=== PATIENT | female | born 1980 | race African-American/Black ===

== ENCOUNTER 2020-02-21 22:28 | Emergency (ER) | payer SELFPAY ==
--- NOTE | 2020-02-21 22:37 | ED.HA ---
HPI - Headache General Chief Complaint: Headache Stated Complaint: Headache , HTN Time Seen by Provider: 02/21/20 22:37 History of Present Illness HPI Narrative: Headache and HTN since this afternoon. The COSTA is left sided and associated with generally not feeling well today. It is moderate in intensity. She also noted that she has had elevated BP throughout the day today. She mentions that she has had tingling in the hands and feet recently, which caused her PCP to mention possible DM, which she has not been evaluated for yet. Additionally she does have urinary frequency. Related Data Allergies Allergy/AdvReac Type Severity Reaction Status Date / Time acetaminophen [From Vicodin] Allergy Unknown Verified 02/21/20 22:45 hydrocodone [From Vicodin] Allergy Unknown Verified 02/21/20 22:45 naproxen Allergy Unknown Verified 02/21/20 22:45 Review of Systems Review of Systems: All systems reviewed & are unremarkable except as noted in HPI and below Constitutional: Constitutional: Denies chills and Denies fever(s) ENT: Denies dizziness and Denies sore throat Cardiovascular: Cardiovascular: Denies chest pain Respiratory: Respiratory: Denies dyspnea Gastrointestinal: Gastrointestinal: Denies abdominal pain and Denies nausea Genitourinary: Genitourinary: Reports nocturia and Denies dysuria Musculoskeletal: Musculoskeletal: Denies back pain Neurologic: Reports headache(s), Denies numbness and Denies weakness Endocrine: Endocrine: Reports polyuria [facility] Past Medical History Medical History (Updated 02/22/20 @ 00:01 by Arthur May MD) Hypertension Social History Social History (Updated 02/21/20 @ 23:42 by Arthur May MD) Smoking status: Never smoker Exam Const: General: healthy appearing, no acute distress and alert Orientation/consciousness: patient oriented x3 HENMT: Head: normal to inspection Ears: TM's normal bilaterally Face and sinus: normal facial exam Eyes: Conjunctivae: conjunctivae normal Pupils: Equal, round and reactive pupils present EOM: EOMs intact bilaterally Neck: Neck: normal visual inspection Resp: Effort & Inspection: normal respiratory effort Auscultation: clear to auscultation bilaterally Cardio: Rate: regular rate Rhythm: regular rhythm Skin: General skin exam: normal color Neuro: General: patient oriented x3, moves all extremities, no meningeal signs, no focal motor deficits and CN's II-XI intact bilaterally Speech: normal speech Gait exam (Neuro): Normal gait present Course Vital Signs Vital signs: Vital Signs Temperature 36.8 C 02/21/20 22:40 Pulse Rate 91 02/21/20 22:40 Respiratory Rate 18 02/21/20 22:40 Blood Pressure 163/95 H 02/21/20 22:40 Pulse Oximetry 100 02/21/20 22:40 Temperature 36.8 C 02/21/20 22:40 Pulse Rate 89 02/22/20 00:00 Respiratory Rate 19 02/22/20 00:00 Blood Pressure 137/56 L 02/22/20 00:00 Pulse Oximetry 100 02/22/20 00:00 MDM - Headache MDM Narrative Medical decision making narrative: Headache resolved with symptomatic treatment and BP improved spontaneously. Differential Diagnosis Differential diagnosis: Likely migraine, tension headache, headache and other (HTN) Medical Records Attestation: I reviewed the patient's medical records. Lab Data Attestation: I reviewed the patient's lab results. Result diagrams: 02/21/20 22:58 02/21/20 22:58 Labs: Lab Results 02/21/20 02/21/20 Range/Units 22:58 22:58 WBC 11.5 H (4.5-10.0) K/mm3 RBC 4.17 L (4.2-5.4) M/mm3 Hgb 8.7 L (12.0-15.0) g/dL Hct 29.9 L (37.0-47.0) % MCV 71.7 L (80-100) fl MCH 20.9 L (26-34) pg MCHC 29.1 L (32-36) g/dl RDW 18.0 H (11.5-14.5) % Plt Count 538 H (150-375) k/mm3 MPV 9.0 (7.4-10.4) fl Immature Gran % (Auto) 0.3 (0-0.5) % Neut % (Auto) 48.3 (45.5-73.1) % Lymph % (Auto) 42.6 (18.3-44.2) % [place] % (Auto) 7.0 (2.6-8.5) % Eos % (A
[2020-02-21 22:40] VITALS: BP 163/95; PULSE 91; RESP 18; TEMP 36.8; O2SAT 100
[2020-02-21] MEDS: METOCLOPRAMIDE HCL INJ 10 MG/2 ML VIAL IV PUSH (23:07)
[2020-02-21 23:08] VITALS: BP 153/77; PULSE 93; RESP 16; O2SAT 100
[2020-02-21] MEDS: SODIUM CHLORIDE 0.9% IV 1,000 ML 999 ML IV CONT (23:08)
[2020-02-21 23:13] LABS: Basophils Percent Auto 0.3 % (0.2-1.2); Eosinophils Absolute Auto 0.2 K/mm3 (0-0.3); Eosinophils Percent Auto 1.5 % (0-4.4); Hematocrit 29.9 % (37.0-47.0); Hemoglobin 8.7 g/dL (12.0-15.0); Immature Granulocyte Absolute 0.03 K/mm3 (0.00-0.031); Immature Granulocyte Percent A 0.3 % (0-0.5); Lymphocytes Absolute Auto 4.89 K/mm3 (0.9-3.2); Lymphocytes Percent Auto 42.6 % (18.3-44.2); Mean Corpuscular HGB Conc 29.1 g/dl (32-36); Mean Corpuscular Hemoglobin 20.9 pg (26-34); Mean Corpuscular Volume 71.7 fl (80-100); Monocytes Absolute Auto 0.8 K/mm3 (0.1-0.6); Neutrophils Absolute Auto 5.6 K/mm3 (1.3-6.7); Neutrophils Percent Auto 48.3 % (45.5-73.1); Platelet Count Result 538 k/mm3 (150-375); Red Blood Count 4.17 M/mm3 (4.2-5.4); White Blood Count 11.5 K/mm3 (4.5-10.0)
[2020-02-21 23:24] LABS: Blood Urea Nitrogen 9 mg/dL (7-17); Calcium 9.3 mg/dL (8.4-10.2); Carbon Dioxide 26 mmol/L (22-30); Chloride 101 mmol/L (98-107); Estimated Glomerular Filt Rate > 60; Glucose 104 mg/dL (65-105); Potassium 3.4 mmol/L (3.4-5.0); Sodium 137 mmol/L (137-145)
[2020-02-21 23:36] LABS: Microcytosis 2+ (NORMAL); Platelet Estimate Adequate (Adequate)
[2020-02-21 23:37] LABS: Hypochromasia 1+ (NORMAL)
[2020-02-21 23:43] VITALS: BP 176/90; PULSE 89; RESP 18; O2SAT 100
[2020-02-22] VITALS: BP 137/56; PULSE 89; RESP 19; O2SAT 100
[2020-02-22 00:11] VITALS: BP 146/83; PULSE 88; RESP 16; O2SAT 100
== END 2020-02-22 00:13 | disposition home or self-care (01) ==
PROVIDERS: Emergency Provider Emergency Medicine; PCP Internal Medicine
DX: R51 Headache (principal); I10 Essential (primary) hypertension
CPT/HCPCS: 36415; 80048; 85025; 96361; 96374; 96375; 99284; J1200; J2765; J7030

== ENCOUNTER 2020-04-30 21:16 | Emergency (ER) | payer OTHER, SELFPAY ==
--- NOTE | ~2020-04-30 | CT_ITS ---
EXAMINATION: CTA chest PE protocol EXAM DATE: 05/01/2020 00:09 INDICATION: Mid chest pain, elevated d-dimer. TECHNIQUE: Spiral CTA of the chest (pulmonary arteries) was performed with 100 cc Omnipaque 350 intr avenous contrast injection. Images were acquired during the pulmonary arterial phase. Coronal maxi mum intensity projection 3D-reconstructions were created by the technologist on dedicated workstation . Axial, coronal and sagittal reformatted images were reviewed. The dose-length product (DLP) for t his examination was 579.85 mGy-cm. The exposure was tailored according to patient size (auto mA exp osure control), and iterative reconstruction (ASIR) was used as additional dose reduction technique. There is no prior study for comparison. FINDINGS: Pulmonary arteries are well opacified and without intraluminal filling defects. No thora cic aortic dissection. Small cluster of right lower lobe tree-in-bud pattern nodules, probably posti nfectious. Some linear lingular scarring. Aberrant right subclavian artery, congenital variant. Ther e are no pleural or pericardial effusions. Tracheobronchial tree is patent. There is no mediastin al, hilar or axillary lymphadenopathy. There is no pneumothorax. Heart normal in size. No evide nce of coronary arterial calcification. Upper abdomen is unremarkable. There is thoracic spondylos is without osteoblastic or osteolytic lesions identified. IMPRESSION: 1. No pulmonary emboli or acute findings. 2. Small cluster right lower lobe nodules, most likely postinfectious. Consider 3-six-month follow-u p low-dose chest CT. Reviewed, dictated and finalized at location A. IMPRESSION: 1. No pulmonary emboli or acute findings. 2. Small cluster right lower lobe nodules, most likely postinfectious. Conside r 3-six-month follow-up low-dose chest CT.
--- NOTE | ~2020-04-30 | XR_ITS ---
EXAMINATION: XR chest 1V portable 04/30/2020 21:49 INDICATION: Generalized chest pain and shortness of breath. Cough. History of asthma. PROCEDURE: AP portable chest COMPARISON: 03/10/2016 FINDINGS: The lungs are clear. The cardiomediastinal silhouette is within normal limits. There are no pleural effusions. There is no pneumothorax suspected. IMPRESSION: 1: NO ACUTE CARDIOPULMONARY DISEASE. Reviewed, dictated and finalized at location A.
--- NOTE | 2020-04-30 21:18 | ECG_ITS ---
Measurements Intervals [place] Rate: 95 P: 51 TN: 137 QRS: 10 QRSD: 84 T: 21 QT: 357 QTc: 450 Interpretive Statements SINUS RHYTHM BASELINE ARTIFACT- I, II, III, AVR, V1, V3 NORMAL ECG Electronically Signed On 05-01-2020 7:20:12 CDT by Ed Jones D.O.
[2020-04-30 21:20] VITALS: BP 162/76; PULSE 104; RESP 20; TEMP 36.9; O2SAT 98
--- NOTE | 2020-04-30 21:33 | ED.GENADULT ---
HPI - General Adult General Chief complaint: Shortness of Breath/Dyspnea Stated complaint: Multiple complaints Time Seen by Provider: 04/30/20 21:21 Source: patient Mode of arrival: ambulatory Limitations: no limitations History of Present Illness HPI narrative: This patient is a 39 year old Female with history of hypertension and asthma who presents for evaluation of headache and chest pain. Patient states for 2 days she has had right side headache that has been constant pressure. She also reports fatigue and diffuse chest tightness that has been constant for 2 days. Her tightness seems worse with moving around. She also reports feeling short of breath and lightheaded. She denies URI symptoms, fever, cough, nausea or vomiting. She denies sick contacts. She took 3 aspirin and tums for her headache and indigestion. Related Data Allergies Allergy/AdvReac Type Severity Reaction Status Date / Time acetaminophen [From Vicodin] Allergy Unknown Verified 02/21/20 22:45 hydrocodone [From Vicodin] Allergy Unknown Verified 02/21/20 22:45 naproxen Allergy Unknown Verified 02/21/20 22:45 Review of Systems Review of Systems: All systems reviewed & are unremarkable except as noted in HPI and below Constitutional: Constitutional: Denies chills and Denies fever(s) Eyes: Eyes: Denies change in vision ENT: Reports as per HPI, Reports dizziness, Denies nasal congestion and Denies sore throat Cardiovascular: Cardiovascular: Reports chest pain Respiratory: Respiratory: Denies cough, Reports dyspnea and Denies wheezing Gastrointestinal: Gastrointestinal: Denies abdominal pain, Reports diarrhea, Denies nausea and Denies vomiting Neurologic: Reports dizziness and Reports headache(s) PMFSH Past Medical History Medical History (Updated 05/01/20 @ 02:09 by Marilu Parekh MD) Asthma Hypertension Surgical History Surgical History (Updated 04/30/20 @ 21:34 by Marilu Parekh MD) H/O section Social History Social History (Updated 04/30/20 @ 21:34 by Marilu Parekh MD) Smoking status: Never smoker Alcohol intake: never Substance use: never Exam Narrative: Exam Narrative: GENERAL: Well-appearing, well-nourished, and in no acute distress. HEAD: Normocephalic, atraumatic EYES: PERRLA and EOMI, conjunctiva clear without discharge EARS: TM's clear bilaterally without erythema or dullness NOSE: Nares clear, no rhinorrhea or epistaxis THROAT:Mucous membranes moist, Oropharynx normal without erythema, exudate, peritonsillar swelling or fluctuance NECK: Supple, without lymphadenopathy or mass RESPIRATORY: No respiratory distress, Airway patent, Respirations non-labored, Clear to auscultation without rales, rhonchi or wheeze, : there is sternal chest tenderness HEART: Regular rate and rhythm. No murmur heard. Normal peripheral pulses. ABDOMEN: Soft, nontender, nondistended, normal active bowel sounds. No masses. No rebound or guarding, No organomegaly. EXTREMITIES: No edema, normal strength with full range of motion. SKIN: Warm, dry, normal color without rash NEURO: Alert and oriented x3. CN 2-12 grossly intact. No focal deficits. PSYCH: Normal mood and affect. Course Reevaluation(s) Reevaluation #1: PAtient states her headache has resolved. Date: 04/30/20 Time: 22:47 Reevaluation #2: I Discussed with patient evaluation showing anemia and nodules to her lungs. She states she is on iron but she is not taking it regularly. She is low risk heart score so she will follow up as outpatient. She will be tested for covid as cause of her symptoms as well. PCP is Kenneth Rodriguez Date: 05/01/20 Time: 02:07 Vital Signs Vital signs: Vital Signs Temperature 98.5 F 04/30/20 21:20 Pulse Rate 104 H 04/30/20 21:20 Respiratory Rate 20 04/30/20 21:20 Blood Pressure 162/76 H 04/30/20 21:20 Pulse Oximetry 98 04/30/20 21:20 Temperature 98.6 F 05/01/20 02:28 Pulse Rate 91
[2020-04-30 22:02] LABS: Basophils Percent Auto 0.3 % (0.2-1.2); Eosinophils Absolute Auto 0.2 K/mm3 (0-0.3); Eosinophils Percent Auto 1.3 % (0-4.4); Hematocrit 30.2 % (37.0-47.0); Hemoglobin 8.9 g/dL (12.0-15.0); Immature Granulocyte Absolute 0.05 K/mm3 (0.00-0.031); Immature Granulocyte Percent A 0.4 % (0-0.5); Lymphocytes Absolute Auto 4.43 K/mm3 (0.9-3.2); Lymphocytes Percent Auto 31.9 % (18.3-44.2); Mean Corpuscular HGB Conc 29.5 g/dl (32-36); Mean Corpuscular Hemoglobin 20.7 pg (26-34); Mean Corpuscular Volume 70.4 fl (80-100); Mean Platelet Volume 9.5 fl (7.4-10.4); Monocytes Percent Auto 7.4 % (2.6-8.5); Neutrophils Absolute Auto 8.2 K/mm3 (1.3-6.7); Neutrophils Percent Auto 58.7 % (45.5-73.1); Platelet Count Result 494 k/mm3 (150-375); Red Blood Count 4.29 M/mm3 (4.2-5.4); Red Cell Distribution Width 19.2 % (11.5-14.5); White Blood Count 13.9 K/mm3 (4.5-10.0)
[2020-04-30 22:12] LABS: Lactic Acid Reflex 1.4 mmol/L (0.7-2.1)
[2020-04-30] MEDS: diphenhydrAMINE HCl INJ 50 MG/ML VIAL 25 MG IV PUSH (22:12)
[2020-04-30] MEDS: METOCLOPRAMIDE HCL INJ 10 MG/2 ML VIAL IV PUSH (22:12)
[2020-04-30 22:14] LABS: INR 0.9; Partial Thromboplastin Time 23.4 SECONDS (22.3-36.8); Prothrombin Time 12.1 Seconds (11.1-14.7)
[2020-04-30 22:15] LABS: Alanine Aminotransferase 23 U/L (4-35); Albumin Level 4.3 g/dL (3.5-5.1); Alkaline Phosphatase 59 U/L (38-126); Anion Gap 13.8 mmol/L (7-16); Aspartate Amino Transferase 38 U/L (14-36); Bilirubin,Total 0.4 mg/dL (0.2-1.3); Blood Urea Nitrogen 12 mg/dL (7-17); CRP 1.1 mg/dL (<1.0); Calcium 9.4 mg/dL (8.4-10.2); Carbon Dioxide 25 mmol/L (22-30); Chloride 100 mmol/L (98-107); Estimated CRCL calculation 124 ml/min; Estimated Glomerular Filt Rate > 60; Glucose 132 mg/dL (65-105); Magnesium 2.1 mg/dL (1.6-2.3); Potassium 3.8 mmol/L (3.4-5.0); Sodium 135 mmol/L (137-145)
[2020-04-30 22:17] LABS: D Dimer 0.63 ug/mL (<0.48)
[2020-04-30 22:19] LABS: Hypochromasia 1+ (NORMAL); Platelet Estimate Increased (Adequate)
[2020-04-30 22:20] LABS: Anisocytosis 2+ (NORMAL)
[2020-04-30 22:27] LABS: NT Pro B Type Natriuretic Pept 22 PG/ML (5-100); Troponin I < 0.012 ng/mL (0.000-0.034)
[2020-04-30 22:34] LABS: Add Urine Microscopic? YES; Appearance Urine Clear (Clear); Bacteria Urine Trace /hpf; Bilirubin Urine Negative (Negative); Blood Urine 2+ (Negative); Color Urine Colorless (Yellow); Glucose Urine UA Negative (Negative); Ketones Urine Negative (Negative); Leukocyte Esterase Ur Trace LEU/UL (Negative); Nitrate Urine Negative (Negative); Protein Urine Negative (Negative); Specific Grav Ur 1.006 (1.001-1.035); Squamous Epithelial Cell Urine Few /hpf (Few); Urobilinogen Urine Negative mg/dL (<2.0)
--- NOTE | 2020-04-30 22:51 | PC.NURSE ---
Assumed care of pt at this time. Report from LEANNA Mckeon
[2020-04-30 23:18] VITALS: BP 154/86; BP 165/89; PULSE 91; PULSE 95
[2020-04-30 23:19] VITALS: BP 167/88; PULSE 97
[2020-04-30 23:27] VITALS: BP 161/74; PULSE 88; RESP 27; TEMP 36.9; O2SAT 99
[2020-04-30 23:28] VITALS: PULSE 88
[2020-05-01 01:30] VITALS: BP 175/101; PULSE 86; RESP 26; O2SAT 100
[2020-05-01 01:58] LABS: Troponin I < 0.012 ng/mL (0.000-0.034)
[2020-05-01 02:28] VITALS: BP 163/89; PULSE 91; RESP 23; TEMP 37; O2SAT 100
[2020-05-01 10:59] LABS: SARS-CoV-2 RNA PCR Negative
== END 2020-05-01 02:29 | disposition home or self-care (01) ==
PROVIDERS: Emergency Provider General Practice
DX: D50.8 Other iron deficiency anemias (principal); R51 Headache; R07.9 Chest pain, unspecified; Z20.828 Contact with and (suspected) exposure to other viral communicable diseases; J45.909 Unspecified asthma, uncomplicated; I10 Essential (primary) hypertension
CPT/HCPCS: 36415; 71045; 71275; 80053; 81001; 81025; 83605; 83735; 83880; 84484; 85025; 85380; 85610; 85730; 86140; 87635; 93005; 96374; 96375; 99284; C9803; J1200; J2765; Q9967; U0003

== ENCOUNTER 2021-12-27 08:57 | Emergency (ER) | payer OTHER, SELFPAY ==
[2021-12-27] VITALS (34 sets, daily range): BP systolic 134–183; BP diastolic 76–119; PULSE 73–101; RESP 12–36; TEMP 36.9; O2SAT 100
--- NOTE | ~2021-12-27 | XR_ITS ---
EXAMINATION: XR lumbar spine 2-3V DATE: 12/27/2021 10:42 INDICATION: Low back and right leg pain TECHNIQUE: Anteroposterior and lateral views of the lumbar spine, and cone-down lateral view of the l umbosacral junction were obtained. COMPARISON: None. FINDINGS: Transitional thoracolumbar segment with right-sided hypoplastic riblet and left-sided transverse proc ess which for purposes of this report will be designated L1. There are 12 more cephalad paired rib be aring thoracic segments seen on chest CT dated 05/01/2020. There are 5 more caudal nonrib-bearing lumb ar segments, L2-L6. 8 mm lumbar dextrocurvature. Sagittal alignment is normal. Vertebral body and dis c heights are normal throughout the lumbar spine. Cholecystectomy clips in right upper quadrant. Smal l calcification in the right upper quadrant superolateral to the right kidney which could represent e ither a calcified hepatic granuloma or potentially a gallstone. IMPRESSION: 1. Mild dextrocurvature of the lumbar spine with 6 lumbar segments including a transitional thoracolu mbar segment. Reviewed, dictated and finalized at location A. IMPRESSION: 1. Mild dextrocurvature of the lumbar spine with 6 lumbar segments including a transitional thoracolumbar segment.
--- NOTE | ~2021-12-27 | US_ITS ---
EXAMINATION: US venous doppler LE RT DATE: 12/27/2021 11:42 INDICATION: Right lower limb pain. TECHNIQUE: Grayscale ultrasound images without and with compression and Doppler ultrasound images of the right lower extremity veins were obtained. COMPARISON: None. FINDINGS: The visualized portions of right common femoral vein, profunda (deep) femoral vein, femoral vein, pop liteal vein, peroneal trunk, posterior tibial veins, peroneal veins, gastrocnemius vein and greater s aphenous vein outflow are patent. IMPRESSION: 1. No deep venous thrombosis in the right lower limb. Reviewed, dictated and finalized at location A.
--- NOTE | ~2021-12-27 | CT_ITS ---
EXAMINATION: CT brain wo con DATE: 12/27/2021 10:23 INDICATION: Left arm weakness TECHNIQUE: Computed tomography (CT) of the head was performed without intravenous contrast. Sagittal and coronal reconstructions were performed. The mA was adjusted according to patient size. Iterative reconstruction technique was employed. The dose-length product was 605.33 mGy-cm. COMPARISON: None FINDINGS: No acute intracranial hemorrhage, acute infarction or abnormal extra axial fluid collection. Ventricl es are normal and symmetric. No mass/mass effect. The orbits, paranasal sinuses and mastoid air cells are normal. IMPRESSION: 1. No acute intracranial process. Reviewed, dictated and finalized at location A.
--- NOTE | ~2021-12-27 | CT_ITS ---
EXAMINATION: CTA chest PE protocol EXAM DATE: 12/27/2021 14:13 INDICATION: Chest pain, elevated dimer. TECHNIQUE: Spiral CTA of the chest (pulmonary arteries) was performed with 100 cc Omnipaque 350 intr avenous contrast injection. Images were acquired during the pulmonary arterial phase. Coronal maxi mum intensity projection 3D-reconstructions were created by the technologist on dedicated workstation . Axial, coronal and sagittal reformatted images were reviewed. The dose-length product (DLP) for t his examination was 477.91 mGy-cm. The exposure was tailored according to patient size (auto mA exp osure control), and iterative reconstruction (ASIR) was used as additional dose reduction technique. Comparison is made to prior examination from 04/30/2020. FINDINGS: Pulmonary arteries are well opacified and without intraluminal filling defects. There is a berrant right subclavian artery, a normal congenital variant. Small amount of right lower lobe reticu lonodular airspace disease which is postinfectious, appears unchanged compared to prior study. The tavia ngs are otherwise clear. No thoracic aortic dissection. There are no pleural or pericardial effusi ons. Tracheobronchial tree is patent. There is no mediastinal, hilar or axillary lymphadenopathy. There is no pneumothorax. Heart normal in size. No evidence of coronary arterial calcification . Hepatic steatosis. There is mild thoracic spondylosis without osteoblastic or osteolytic lesions identified. IMPRESSION: 1. No pulmonary emboli or acute cardiopulmonary findings. 2. Small amount of right lower lobe post infectious residua. 3. Hepatic steatosis. Reviewed, dictated and finalized at location G.
--- NOTE | ~2021-12-27 | XR_ITS ---
EXAMINATION: XR chest 2V DATE: 12/27/2021 09:24 INDICATION: Asthma presenting with left-sided body weakness TECHNIQUE: PA and lateral views of the chest were obtained. COMPARISON: Chest radiograph and CT dated 04/30/2020 FINDINGS: The lungs remain clear with no focal airspace opacities, pulmonary edema, pleural effusion or pneumot horax. The cardiomediastinal silhouette is normal. Cholecystectomy clips in right upper quadrant. Mil d thoracic spondylosis. IMPRESSION: 1. No acute cardiopulmonary disease. Reviewed, dictated and finalized at location A.
--- NOTE | ~2021-12-27 | XR_ITS ---
EXAMINATION: XR shoulder LT min 2V DATE: 12/27/2021 10:42 INDICATION: Generalized left arm pain from the shoulder to the wrist TECHNIQUE: AP internally and externally rotated, AP oblique externally rotated and transscapular Y vi ews of the affected shoulder were obtained. COMPARISON: None FINDINGS: Normal alignment. No fracture.Mild left glenohumeral osteoarthritis. Acromioclavicular joint is norm al. Soft tissues are unremarkable. Visualized portions of the lungs are clear. IMPRESSION: Mild left glenohumeral osteoarthritis. Reviewed, dictated and finalized at location A.
--- NOTE | ~2021-12-27 | XR_ITS ---
EXAMINATION: XR knee RT min 4V DATE: 12/27/2021 10:41 INDICATION: Posterior right knee pain TECHNIQUE: Anteroposterior, 2 oblique and crosstable lateral views of the affected knee were obtained COMPARISON: None. FINDINGS: Alignment is normal. No fracture. Joint spaces appear normal on nonweightbearing imaging. No joint e ffusion/layering lipohemarthrosis. Soft tissues are unremarkable. IMPRESSION: 1. Negative right knee radiographs. Reviewed, dictated and finalized at location A.
--- NOTE | ~2021-12-27 | XR_ITS ---
EXAMINATION:XR_CERV2-3V_CR DATE: 12/27/2021 10:42 INDICATION: Left arm pain TECHNIQUE: AP, lateral, lateral swimmers and odontoid views of the cervical spine are provided. COMPARISON: None FINDINGS: Alignment is normal. Odontoid is intact. Normal atlantoaxial interval. Vertebral body heights are no rmal. Disc spaces are normal. Prevertebral soft tissues are normal. Visualized apices of the lungs a re clear. IMPRESSION: 1. Negative cervical spine radiographs. Reviewed, dictated and finalized at location A.
--- NOTE | 2021-12-27 08:58 | ECG_ITS ---
Measurements Intervals [place] Rate: 90 P: 54 IA: 145 QRS: 1 QRSD: 80 T: 21 QT: 368 QTc: 452 Interpretive Statements SINUS RHYTHM NORMAL ECG COMPARED TO ECG 04/30/2020 21:27:21 NO SIGNIFICANT CHANGES Electronically Signed On 12-27-2021 20:40:58 CDT by Ritchie Francis M.D.
[2021-12-27 09:29] LABS: Basophils Percent Auto 0.4 % (0.2-1.2); Eosinophils Absolute Auto 0.2 K/mm3 (0-0.3); Eosinophils Percent Auto 1.6 % (0-4.4); Hematocrit 32.5 % (37.0-47.0); Hemoglobin 10.3 g/dL (12.0-15.0); Immature Granulocyte Absolute 0.03 K/mm3 (0.00-0.031); Immature Granulocyte Percent A 0.3 % (0-0.5); Lymphocytes Absolute Auto 2.98 K/mm3 (0.9-3.2); Lymphocytes Percent Auto 29.6 % (18.3-44.2); Mean Corpuscular HGB Conc 31.7 g/dl (32-36); Mean Corpuscular Hemoglobin 25.9 pg (26-34); Mean Corpuscular Volume 81.9 fl (80-100); Mean Platelet Volume 9.3 fl (7.4-10.4); Monocytes Absolute Auto 0.6 K/mm3 (0.1-0.6); Monocytes Percent Auto 5.8 % (2.6-8.5); Neutrophils Absolute Auto 6.3 K/mm3 (1.3-6.7); Neutrophils Percent Auto 62.3 % (45.5-73.1); Platelet Count Result 407 k/mm3 (150-375); Red Blood Count 3.97 M/mm3 (4.2-5.4); Red Cell Distribution Width 14.2 % (11.5-14.5); White Blood Count 10.1 K/mm3 (4.5-10.0)
[2021-12-27 09:39] LABS: Prothrombin Time 12.4 Seconds (11.1-14.7)
[2021-12-27 09:40] LABS: Partial Thromboplastin Time 24.6 SECONDS (22.3-36.8)
[2021-12-27 09:42] LABS: Alanine Aminotransferase 22 U/L (4-35); Albumin Level 3.9 g/dL (3.5-5.1); Alkaline Phosphatase 59 U/L (38-126); Anion Gap 8 mmol/L (8-16); Aspartate Amino Transferase 32 U/L (14-36); Bilirubin,Total 0.7 mg/dL (0.2-1.3); Blood Urea Nitrogen 9 mg/dL (7-17); Calcium 8.7 mg/dL (8.4-10.2); Carbon Dioxide 23 mmol/L (22-30); Chloride 106 mmol/L (98-107); Estimated CRCL calculation 107 ml/min; Estimated Glomerular Filt Rate > 60; Glucose 125 mg/dL (65-110); Lipase 80 U/L (23-300); Potassium 3.8 mmol/L (3.4-5.0); Sodium 137 mmol/L (137-145)
[2021-12-27 09:53] LABS: Troponin I < 0.012 ng/mL (0.000-0.034)
--- NOTE | 2021-12-27 10:03 | ED.CHESTPAIN ---
HPI - Chest Pain General Chief Complaint: Chest Pain <Asia Dobbins PA-C - Last Filed: 12/27/21 15:02> Stated Complaint: chest pain <Asia Dobbins PA-C - Last Filed: 12/27/21 15:02> Time Seen by Provider: 12/27/21 09:09 <Asia Dobbins PA-C - Last Filed: 12/27/21 15:02> Source: patient <ALMA Garrido Last Filed: 12/27/21 15:02> Mode of arrival: ambulatory <ALMA Garrido Last Filed: 12/27/21 15:02> Limitations: no limitations <Asia Dobbins PA-C - Last Filed: 12/27/21 15:02> History of Present Illness HPI narrative: This is a 41-year-old female that presents to the emergency department with multiple complaints. Reports she has had right leg pain ongoing for the last couple of weeks. No certain injury or trauma. Reports the pain radiates up her leg. It is mostly centered around the back of her knee. It has been constant. She has not taken anything for pain. She also reports left upper arm pain. She feels like her left arm is weak. This is also been ongoing for a couple of weeks. Reports she has had some intermittent chest tightness over the last couple of days. She was unsure if some of her symptoms were due to anxiety. She does not currently take any medications for anxiety. Denies shortness of breath, lower extremity edema, or numbness. <Asia Dobbins PA-C - Last Filed: 12/27/21 15:02> Related Data Allergies/Adverse Reactions: Allergies Allergy/AdvReac Type Severity Reaction Status Date / Time acetaminophen [From Vicodin] Allergy Unknown Verified 02/21/20 22:45 hydrocodone [From Vicodin] Allergy Unknown Verified 02/21/20 22:45 naproxen Allergy Unknown Verified 02/21/20 22:45 <ALMA Garrido Last Filed: 12/27/21 15:02> Review of Systems Review of Systems: CONSTITUTIONAL: Denies fever CARDIOVASCULAR: Reports chest pain. Denies edema. RESPIRATORY: Denies dyspnea. SKIN: Denies rash MUSCULOSKELETAL: Reports joint pain, and myalgia. NEUROLOGIC: Reports weakness. Denies numbness PSYCHIATRIC: Reports anxiety <Asia Dobbins PA-C - Last Filed: 12/27/21 15:02> All systems reviewed & are unremarkable except as noted in HPI and below <Asia Dobbins PA-C - Last Filed: 12/27/21 15:02> PMFSH Past Medical History Medical History: Medical History (Updated 12/27/21 @ 15:00 by Asia Dobbins PA-C) Asthma Hypertension <Asia Dobbins PA-C - Last Filed: 12/27/21 15:02> Surgical History Surgical History: Surgical History (Updated 04/30/20 @ 21:34 by Marilu Parekh MD) H/O section <Asia Dobbins PA-C - Last Filed: 12/27/21 15:02> Social History Social History: Social History (Updated 04/30/20 @ 21:34 by Marilu Parekh MD) Smoking status: Never smoker Alcohol intake: never Substance use: never <Asia Dobbins PA-C - Last Filed: 12/27/21 15:02> Exam Narrative: GENERAL: Well-appearing, well-nourished, and in no acute distress. HEAD: Normocephalic, atraumatic. EYES: PERRLA and EOMI. ENT: Nares clear, no rhinorrhea or epistaxis. Mucous membranes moist. Oropharynx without tonsillar hypertrophy exudate or other lesions. Bilateral TMs pearly street non-bulging NECK: Supple. No adenopathy or masses. CHEST: Clear to auscultation. No respiratory distress. No wheezes rales or rhonchi HEART: Regular rate and rhythm. No murmur heard. Normal peripheral pulses. EXTREMITIES: Normal range of motion. No edema, erythema or deformity. Normal distal pulses. Normal sensation. Strength equal in bilateral upper and lower extremities (5/5) SKIN: Warm, dry, no rash. NEURO: No focal deficits. Alert and oriented x3. Cranial nerves II through XII grossly intact PSYCH: Normal mood and affect <Asia Dobbins PA-C - Last Filed: 12/27/21 15:02> Course FRESH WORK INSPECTOR/PA Physician Supervision For this patient encounter, I reviewed the FRESH WORK INSPECTOR or PA documentation, treatment plan, and medical decision making
[2021-12-27 11:02] LABS: D Dimer 0.54 ug/mL (<0.48)
[2021-12-27 12:40] LABS: Troponin I < 0.012 ng/mL (0.000-0.034)
--- NOTE | 2021-12-27 13:02 | PC.NURSE ---
patient states that there is no chance of . provider aware. patient willing to sign waiver for CT scan
== END 2021-12-27 15:38 | disposition home or self-care (01) ==
PROVIDERS: Physician Assistant; Emergency Provider Emergency Medicine
DX: M79.604 Pain in right leg (principal); M79.622 Pain in left upper arm; R07.89 Other chest pain; M19.012 Primary osteoarthritis, left shoulder; K76.0 Fatty (change of) liver, not elsewhere classified
CPT/HCPCS: 36415; 70450; 71046; 71275; 72040; 72100; 73030; 73564; 80053; 83690; 83735; 84484; 85025; 85380; 85610; 85730; 93005; 93971; 96374; 99284; J0131; Q9967

== ENCOUNTER 2022-02-17 11:52 | Emergency (ER) | payer OTHER, SELFPAY ==
--- NOTE | ~2022-02-17 | XR_ITS ---
EXAMINATION: XR abdomen/kub 1V DATE: 02/17/2022 12:27 INDICATION: Left abdominal pain. TECHNIQUE: A supine view of the abdomen was obtained. COMPARISON: Chest CT 12/27/2021, lumbar spine radiographs 12/27/2021 FINDINGS: There are no dilated loops of bowel. There is a moderate volume of stool in the colon. Ther e is no urolithiasis. There is a phlebolith in right pelvis. Surgical clips in the right upper quadra nt are likely from cholecystectomy. IMPRESSION: 1. Normal bowel gas pattern. Reviewed, dictated and finalized at location B.
[2022-02-17 11:59] VITALS: BP 172/98; PULSE 102; RESP 20; TEMP 36.9; O2SAT 100
[2022-02-17 12:00] VITALS: BP 172/98; PULSE 102; RESP 20; TEMP 36.9; O2SAT 100
--- NOTE | 2022-02-17 12:03 | ED.BACK ---
HPI - Back Pain/Injury General Chief Complaint: Back Pain/Injury Stated Complaint: left side back pain Time Seen by Provider: 02/17/22 12:05 Source: patient Mode of arrival: ambulatory Limitations: no limitations History of Present Illness HPI Narrative: 41-year-old female presented for complaint of left flank pain, onset today. States she worked nights, felt the pain after waking. She denies injury. Rates pain 8 out of 10, worse with any movement, described as sharp and 'a knot.' Endorses nausea. Denies cough, sob, vomiting, diarrhea, hematuria, dysuria, fevers or chills. She has not taken BP medication yet today. Related Data Home Medications Medication Instructions Recorded Confirmed albuterol 90 mcg INHALATION PRN PRN 02/17/22 02/17/22 losartan 25 mg PO DAILY 02/17/22 02/17/22 metoprolol tartrate 37.5 mg PO DAILY 02/17/22 02/17/22 mometasone-formoterol [Dulera] 2 puff INHALATION Q12H 02/17/22 02/17/22 Allergies Allergy/AdvReac Type Severity Reaction Status Date / Time acetaminophen [From Vicodin] AdvReac Intermediate Other Verified 02/17/22 12:18 hydrocodone [From Vicodin] AdvReac Intermediate Other Verified 02/17/22 12:18 naproxen AdvReac Intermediate Other Verified 02/17/22 12:18 Review of Systems Review of Systems: CONSTITUTIONAL: Denies body aches, fever, chills, or sweats. EYES: Denies visual changes, redness, or discharge. ENT: Denies rhinorrhea, congestion, sore throat, or otalgia. CARDIOVASCULAR: Denies chest pain, palpitations, or edema. RESPIRATORY: Denies cough or dyspnea. GASTROINTESTINAL: Denies abdominal pain, vomiting, or diarrhea. GENITOURINARY: Denies dysuria or hematuria. SKIN: Denies rash, itching, or wounds. MUSCULOSKELETAL:reports back pain NEUROLOGIC: Denies headache, numbness, tingling, or weakness. PSYCH: Denies depression or anxiety. All systems reviewed & are unremarkable except as noted in HPI and below PMFSH Past Medical History Medical History Asthma Hypertension Surgical History Surgical History H/O section Social History Social History Smoking status: Never smoker Alcohol intake: never Substance use: never Comments At time of signature, I have reviewed and agree with nursing past medical, surgical, social and family history unless otherwise noted. Please see nursing chart for further information. There is no relevant family history pertinent to the presenting complaint Exam Narrative: GENERAL: appears in pain, no acute distress. HEAD: Normocephalic, atraumatic. EYES: EOMI. No redness or drainage. Conjunctivae normal. ENT: Mucous membranes pink and moist. No rhinorrhea. TMs normal bilaterally. Throat normal. Uvula midline. NECK: Normal AROM. Supple. No lymphadenopathy. CHEST: No respiratory distress. Clear to auscultation. HEART: Regular rate and rhythm. No murmur appreciated. Normal peripheral pulses. ABDOMEN: Soft, tender with deep palpation to left upper abd, nondistended, normal active bowel sounds. Left CVA tenderness and left lateral abdominal tenderness with palpation. MUSCULOSKELETAL: No bony tenderness. EXTREMITIES: Normal range of motion. No edema. SKIN: Warm, dry, no rash. Capillary refill normal. Normal skin turgor. NEURO: No focal deficits. Alert and oriented x3. Gait steady. PSYCH: Normal affect. No signs of depression or anxiety. Course Course Emergency Course: Patient is aware of diagnosis, understands and agrees to treatment plan. Anticipatory guidance given. Patient agrees to follow-up as directed and is aware of reasons to seek care at the emergency department. Portions of this record may have been created with voice recognition software Level of Care: Express Care Visit Vital Signs Vital signs: Vital Signs Temperature 98.5 F 02/17/22 11:59 Pul
[2022-02-17 12:55] VITALS: BP 178/93
== END 2022-02-17 12:55 | disposition home or self-care (01) ==
PROVIDERS: Emergency Provider Nurse Practitioner Family
DX: R10.9 Unspecified abdominal pain (principal); J45.909 Unspecified asthma, uncomplicated; I10 Essential (primary) hypertension
CPT/HCPCS: 74018; 81003; 99213; G0463

== ENCOUNTER 2022-10-02 12:49 | Emergency (ER) | payer OTHER, SELFPAY ==
--- NOTE | ~2022-10-02 | XR_ITS ---
EXAMINATION: XR chest 2V Exam Date/Time: 10/02/2022 16:06 [employer] HISTORY: Lt sided CP, HTN, non smoker Comparison: 12/27/2021. RESULT: Lines, tubes, and devices: Cholecystectomy clips. Lungs and pleura: No focal consolidation, pneumothorax, or effusion. Streaky bibasilar linear opacit ies likely representing scar/atelectasis. Cardiomediastinal silhouette: Stable. Other: No acute osseous or upper abdominal finding. IMPRESSION: No acute cardiopulmonary process. Reviewed, dictated and finalized at location K. [employer]
--- NOTE | ~2022-10-02 | XR_ITS ---
EXAM: XR shoulder LT min 2V DATE: 10/02/2022 16:13 HISTORY: atraumatic soreness/pain; ant Lt shoulder pain, no injury . COMPARISON: 12/27/2021. FINDINGS: Normal mineralization. No fracture or dislocation. No lytic or blastic lesion. Mild degene rative AC joint and glenohumeral joint change. Acromial tip enthesopathy. No erosion or periosteal ch frederick. Soft tissues within normal limits. IMPRESSION: No acute osseous finding in the left shoulder. Reviewed, dictated and finalized at location K. 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
--- NOTE | 2022-10-02 13:23 | ECG_ITS ---
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
[2022-10-02 13:24] VITALS: BP 174/88; PULSE 97; RESP 16; TEMP 37; O2SAT 100
--- NOTE | 2022-10-02 16:01 | ED.GENADULT ---
HPI - General Adult General Chief complaint: Unspecified Stated complaint: Left Body Pain, Tension Headaches Time Seen by Provider: 10/02/22 15:45 History of Present Illness HPI narrative: 41-year-old female with a history of asthma here for evaluation of multiple medical complaints. Patient states that yesterday she started having an aching pain in her left shoulder without obvious trigger. States it is worse with position changes and movement. She has not attempted any medication for her pain. The pain started to radiate into her chest yesterday. Patient reports a history of previous similar chest pain, has been worked up in the ED numerous times for this and has had negative CTAs. She has also had a negative stress test performed at outside hospital. Additionally notes pain in her left leg that starts in her back and radiates down. She has seen her primary care doctor for this issue and has had numerous tests performed without obvious etiology. Patient also notes a left-sided headache and pain behind her left eye. No visual changes, nausea or vomiting, fevers or chills. She was exposed to COVID 3 days ago and is not vaccinated. Has not taken any medicine for her pain. Related Data Home Medications Medication Instructions Recorded Confirmed albuterol 90 mcg/actuation aerosol 90 mcg inhalation PRN PRN 02/17/22 02/17/22 inhaler difficulty breathing losartan 25 mg tablet 25 mg PO DAILY 02/17/22 02/17/22 metoprolol tartrate 37.5 mg tablet 37.5 mg PO DAILY 02/17/22 02/17/22 mometasone-formoterol HFA 50 mcg-5 2 puff inhalation Q12H 02/17/22 02/17/22 mcg/actuation aerosol inhaler (Dulera) Allergies Allergy/AdvReac Type Severity Reaction Status Date / Time acetaminophen [From Vicodin] AdvReac Intermediate Other Verified 02/17/22 12:18 hydrocodone [From Vicodin] AdvReac Intermediate Other Verified 02/17/22 12:18 naproxen AdvReac Intermediate Other Verified 02/17/22 12:18 Review of Systems Review of Systems: Gen.: Denies fevers or chills Eyes: Denies eye pain or visual change ENT: Denies congestion Respiratory: Denies shortness of breath or cough CV: Reports chest pain. Denies palpitations GI: Denies abdominal pain nausea, emesis or diarrhea denies burning, urgency, frequency or hematuria Musculoskeletal: Reports left shoulder and leg pain. Neuro: Denies numbness, tingling, weakness or focal weakness Skin: Denies rash Except as documented, all other systems reviewed and negative [facility] Past Medical History Medical History Asthma Hypertension Surgical History Surgical History H/O section Social History Social History Smoking status: Never smoker Alcohol intake: never Substance use: never Exam Narrative: APPEARANCE: Well appearing, no pain in distress, well-nourished. Head: Normocephalic and atraumatic. EYES: PERRLA/EOMI, conjunctivae clear NOSE: No nasal drainage EARS: External ear normal in appearance THROAT: Oropharynx is clear. Mucous membranes are moist. NECK: Spurling's test negative.Supple. No adenopathy, no masses. RESPIRATORY: Airway patent, respirations nonlabored. Clear to auscultation bilaterally, no rales, rhonchi, wheezing. CARDIOVASCULAR: Regular rate and rhythm without murmurs, rubs, or gallops. ABDOMINAL: Normoactive bowel sounds. Soft, nontender, nondistended. No rebound tenderness or guarding. MUSCULOSKELETAL: extremities are warm and well-perfused. Moves all extremities well. No edema. NEURO: Cranial nerves II through XII intact. Hi Teacher strength equal bilaterally. Normal speech. No focal neurologic deficits. SKIN: Skin is warm and dry. No rashes. PSYCHIATRIC: Normal affect/mood.. Course Vital Signs Vital signs: Vital Signs Temperature 98.6 F 10/02/22 13:24 Pulse Rate 97 12/
[2022-10-02] MEDS: KETOROLAC 15 MG/ML VIAL (*BKC) IV PUSH (16:35)
[2022-10-02 16:44] LABS: Basophils Percent Auto 0.2 % (0.2-1.2); Eosinophils Percent Auto 0.6 % (0-4.4); Hematocrit 40.7 % (37.0-47.0); Hemoglobin 13.5 g/dL (12.0-15.0); Immature Granulocyte Absolute 0.02 K/mm3 (0.00-0.031); Immature Granulocyte Percent A 0.3 % (0-0.5); Lymphocytes Absolute Auto 1.78 K/mm3 (0.9-3.2); Lymphocytes Percent Auto 27.4 % (18.3-44.2); Mean Corpuscular HGB Conc 33.2 g/dl (32-36); Mean Corpuscular Volume 84.4 fl (80-100); Mean Platelet Volume 8.9 fl (7.4-10.4); Monocytes Absolute Auto 1.1 K/mm3 (0.1-0.6); Monocytes Percent Auto 17.1 % (2.6-8.5); Neutrophils Absolute Auto 3.5 K/mm3 (1.3-6.7); Neutrophils Percent Auto 54.4 % (45.5-73.1); Platelet Count Result 285 k/mm3 (150-375); Red Blood Count 4.82 M/mm3 (4.2-5.4); Red Cell Distribution Width 16.8 % (11.5-14.5); White Blood Count 6.5 K/mm3 (4.5-10.0)
[2022-10-02 17:19] LABS: Influenza A QL RT-PCR Negative (Negative); Influenza B QL RT-PCR Negative (Negative); SARS-CoV-2 RNA PCR Positive
[2022-10-02 17:32] LABS: Alanine Aminotransferase 31 U/L (6-35); Albumin Level 4.1 g/dL (3.5-5.1); Alkaline Phosphatase 55 U/L (38-126); Anion Gap 7 mmol/L (8-16); Aspartate Amino Transferase 29 U/L (14-36); Bilirubin,Total 0.5 mg/dL (0.2-1.3); Blood Urea Nitrogen 7 mg/dL (7-17); Calcium 8.5 mg/dL (8.4-10.2); Carbon Dioxide 27 mmol/L (22-30); Chloride 100 mmol/L (98-107); Estimated CRCL calculation 92 ml/min; Estimated Glomerular Filt Rate > 60; Glucose 127 mg/dL (65-110); Potassium 3.6 mmol/L (3.4-5.0); Sodium 134 mmol/L (137-145)
[2022-10-02 17:43] LABS: Troponin I < 0.012 ng/mL (0.000-0.034)
== END 2022-10-02 17:58 | disposition home or self-care (01) ==
PROVIDERS: Physician Assistant; Emergency Provider Emergency Medicine
DX: U07.1 COVID-19 (principal); J45.909 Unspecified asthma, uncomplicated; I10 Essential (primary) hypertension
CPT/HCPCS: 36415; 71046; 73030; 80053; 84484; 85025; 87636; 93005; 96374; 99284; J1885

== ENCOUNTER 2022-10-22 09:15 | Outpatient (CLI) | payer OTHER, SELFPAY ==
--- NOTE | ~2022-10-22 | US_ITS ---
Pelvic ultrasound. Clinical History: Excessive and frequent menstruation Technique: Realtime transabdominal and transvaginal scanning of the pelvis was performed. Color flow Doppler and Doppler spectral analysis were performed. Findings: The uterus is retroverted. The endometrial stripe has a thickness of 9 mm. Anterior wall i ntramural fibroid measures 3.7 cm in maximum diameter. Additional anterior wall fibroid towards the l ower uterine segment measures 1.9 cm in maximum diameter. The right ovary measures 1.6 x 2.5 x 1.6 cm. No significant right ovarian or adnexal mass is seen. The left ovary measures 3.3 x 2.6 x 1.2 cm. No significant left ovarian or adnexal mass is seen. Vascular flow present in both ovaries on Doppler spectral analysis. There is no evidence of free fluid in the cul de sac. Impression: Uterine fibroids, as detailed above. Reviewed, dictated and finalized at [facility]. 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
== END 2022-10-22 09:16 | disposition home or self-care (01) ==
PROVIDERS: Visit Provider Obstetrics & Gynecology
DX: N92.0 Excessive and frequent menstruation with regular cycle (principal); D25.9 Leiomyoma of uterus, unspecified
CPT/HCPCS: 76830; 76856

== ENCOUNTER 2024-01-13 12:32 | Emergency (ER) | payer OTHER, SELFPAY ==
--- NOTE | ~2024-01-13 | XR_ITS ---
EXAMINATION: XR chest 2V DATE: 01/13/2024 13:36 INDICATION: Asthma presenting with shortness of breath TECHNIQUE: PA and lateral views of the chest were obtained. COMPARISON: None FINDINGS: The lungs are clear with no focal airspace opacities, pulmonary edema, pleural effusion or pneumothor ax. The cardiomediastinal silhouette is normal. Tiny likely biopsy marker clip at the right breast. M ild to moderate thoracic spondylosis with mild anterior wedging of a few mid thoracic vertebral yvan s. IMPRESSION: 1. No acute cardiopulmonary disease. Reviewed, dictated and finalized at location B.
--- NOTE | ~2024-01-13 | CT_ITS ---
EXAMINATION: CT cervical spine wo con DATE: 01/13/2024 13:33 INDICATION: Left neck pain. TECHNIQUE: Computed tomography (CT) of the cervical spine was performed without intravenous contrast. Automated exposure control and iterative reconstruction technique were employed. The dose-length pro duct was 440.95 mGy-cm. COMPARISON: None FINDINGS: There is mild kyphosis of cervical spine. There is 5 degrees levocurvature of cervical spin e. Vertebral body heights and intervertebral disc heights are normal. The following disc levels are s pecifically discussed: C2-C3: There is mild bilateral uncovertebral joint osteoarthritis. There is mild left facet joint ost eoarthritis. There is no neural foraminal stenosis. There is no central canal stenosis. C3-C4: There is mild bilateral uncovertebral joint osteoarthritis. There is no facet joint osteoarthr itis. There is no neural foraminal stenosis. There is no central canal stenosis. C4-C5: There is no uncovertebral joint osteoarthritis. There is no facet joint osteoarthritis. There is no neural foraminal stenosis. There is no central canal stenosis. C5-C6: There is uncovertebral joint osteoarthritis. There is no facet joint osteoarthritis. There is neural foraminal stenosis. There is mild central canal stenosis. C6-C7: There is mild right uncovertebral joint osteoarthritis. There is no facet joint osteoarthritis . There is mild right neural foraminal stenosis. There is no central canal stenosis. C7-T1: There is no uncovertebral joint osteoarthritis. There is mild bilateral facet joint osteoarthr itis. There is no neural foraminal stenosis. There is no central canal stenosis. IMPRESSION: 1. Mild cervical spondylosis. Reviewed, dictated and finalized at location A.
--- NOTE | ~2024-01-13 | CT_ITS ---
EXAMINATION: CT brain wo con DATE: 01/13/2024 13:33 INDICATION: Left-sided neck and jaw pain and left-sided visual changes. TECHNIQUE: Computed tomography (CT) of the head was performed without intravenous contrast. Sagittal and coronal reconstructions were performed. The mA was adjusted according to patient size. Iterative reconstruction technique was employed. The dose-length product was 529.67 mGy-cm. COMPARISON: None FINDINGS: No acute intracranial hemorrhage, acute infarction or abnormal extra axial fluid collection. Ventricl es are normal and symmetric. No mass/mass effect. There is a small amount of intraorbital fat protrud ing into a couple small defects along the bilateral lamina papyracea consistent with likely sequela o f chronic medial orbital wall blowout fractures. Orbits are otherwise normal with no infiltrate stran ding to suggest acute injury. The paranasal sinuses are otherwise unremarkable. Mastoid air cells and middle ear cavities are clear. IMPRESSION: 1. Normal brain. No acute intracranial process. Reviewed, dictated and finalized at location B.
[2024-01-13 12:35] VITALS: BP 191/95; PULSE 93; RESP 18; TEMP 36.5; O2SAT 100
--- NOTE | 2024-01-13 13:00 | ED.NECK ---
HPI - Neck Pain/Injury General Chief Complaint: Neck Pain/Injury Stated Complaint: left side neck and head pain for a few days Time Seen by Provider: 01/13/24 13:00 Focused HPI: Carolyn is a 43-year-old female patient presenting to the clinic today with complaints of left neck and head pain. She reports the left-sided neck pain has been going on for approximately 1 week. Experienced an episode today around 11:00 a.m. where she developed pressure behind her left eye and lost vision-states everything went dark while she was shopping. Denies syncopal episode. Patient is diabetic. Denies any chest pain but reports some shortness of breath. History of asthma. Blood pressure is elevated 191/95 initially in the ER today. States the vision has improved. 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 Denies any injury to her neck or head. General: Well-developed, well nourished, in no apparent distress Head: Normocephalic, atraumatic Eyes: Pupils equally round and reactive to light bilaterally, EOM intact, sclera and conjunctive clear, no discharge, lids normal Ears: TMs intact and clear, ear canals clear, no drainage, grossly hearing normal. Nose: Nares patent, no discharge, no inflammation, no sinus tenderness. Mouth: Oropharynx without lesions or masses, good dentition, MMM. Tongue midline, even rise and fall of uvula Neck: Supple, trachea midline, no enlargement of anterior or posterior cervical nodes, no thyroid masses or goiter palpable. Cardio: Regular rate and rhythm, s1 and s2 normal, no murmur appreciated. Resp: Clear to auscultation bilaterally anteriorly and posteriorly, no rhonchi, rales, wheezing or rubs Musculoskeletal: No deformity, tender to palpation over the left side of the neck, pain with hyperextension of the neck over the left side of the neck, grossly normal range of motion, muscle strength strong and equal, peripheral pulse strong, no edema, no cyanosis, normal gait and station Neuro: Alert and oriented x4 with normal speech, no focal deficits, cranial nerves I through XII intact, muscle strength 5 out of 5, sensation intact bilaterally, Patient screened in triage and initial orders placed. Additional care and disposition to be based upon diagnostic testing and treatment. Source: patient Mode of arrival: ambulatory Limitations: no limitations Related Data Home Medications Medication Instructions Recorded Confirmed albuterol 90 mcg/actuation aerosol 90 mcg inhalation PRN PRN 02/17/22 02/17/22 inhaler difficulty breathing losartan 25 mg tablet 25 mg PO DAILY 02/17/22 02/17/22 metoprolol tartrate 37.5 mg tablet 37.5 mg PO DAILY 02/17/22 02/17/22 mometasone-formoterol HFA 50 mcg-5 2 puff inhalation Q12H 02/17/22 02/17/22 mcg/actuation aerosol inhaler (Dulera) Allergies Allergy/AdvReac Type Severity Reaction Status Date / Time acetaminophen [From Vicodin] AdvReac Intermediate Other Verified 01/13/24 12:33 hydrocodone [From Vicodin] AdvReac Intermediate Other Verified 01/13/24 12:33 naproxen AdvReac Intermediate Other Verified 01/13/24 12:33 Review of Systems Review of Systems: Pertinent positives per HPI. Patient denies any fever, chills, rash, headache, visual changes, dizziness, cough, runny nose, sore throat, shortness of breath, chest pain, palpitations, nausea, vomiting, diarrhea, constipation, abdominal pain, or any urinary issues. [facility], [facility] Past Medical History Medical History Asthma Hypertension Surgical History Surgical History H/O section Social History Social History Smoking status: Never smoker Alcohol intake: never Substance use: never Comments At the time of my signature, I reviewed and agree with the nursing past medical, surgical, social, and family history. There is no relevant family history pertinent t
--- NOTE | 2024-01-13 13:05 | PC.NURSE ---
attempted to place patient in room from waiting room, no answer
[2024-01-13 13:50] LABS: Basophils Percent Auto 0.4 % (0.2-1.2); Eosinophils Absolute Auto 0.2 K/mm3 (0-0.3); Eosinophils Percent Auto 2.2 % (0-4.4); Hematocrit 42.1 % (37.0-47.0); Hemoglobin 13.4 g/dL (12.0-15.0); Immature Granulocyte Absolute 0.03 K/mm3 (0.00-0.031); Immature Granulocyte Percent A 0.3 % (0-0.5); Lymphocytes Absolute Auto 3.09 K/mm3 (0.9-3.2); Lymphocytes Percent Auto 29.1 % (18.3-44.2); Mean Corpuscular HGB Conc 31.8 g/dl (32-36); Mean Corpuscular Hemoglobin 26.9 pg (26-34); Mean Corpuscular Volume 84.4 fl (80-100); Mean Platelet Volume 9.5 fl (7.4-10.4); Monocytes Absolute Auto 0.8 K/mm3 (0.1-0.6); Monocytes Percent Auto 7.3 % (2.6-8.5); Neutrophils Absolute Auto 6.5 K/mm3 (1.3-6.7); Neutrophils Percent Auto 60.7 % (45.5-73.1); Platelet Count Result 357 k/mm3 (150-375); Red Blood Count 4.99 M/mm3 (4.2-5.4); Red Cell Distribution Width 14.2 % (11.5-14.5); White Blood Count 10.6 K/mm3 (4.5-10.0)
[2024-01-13 14:03] LABS: Alanine Aminotransferase 32 U/L (6-35); Albumin Level 4.2 g/dL (3.5-5.1); Alkaline Phosphatase 71 U/L (38-126); Anion Gap 6 mmol/L (4-12); Aspartate Amino Transferase 31 U/L (14-36); Bilirubin,Total 0.7 mg/dL (0.2-1.3); Blood Urea Nitrogen 12 mg/dL (7-17); Calcium 9.4 mg/dL (8.4-10.2); Carbon Dioxide 27 mmol/L (22-30); Chloride 103 mmol/L (98-107); Estimated CRCL calculation 104 ml/min; Estimated Glomerular Filt Rate > 60; Glucose 147 mg/dL (65-110); Potassium 3.5 mmol/L (3.4-5.0); Sodium 136 mmol/L (137-145)
[2024-01-13 14:10] VITALS: BP 163/93; RESP 18
== END 2024-01-13 14:21 | disposition home or self-care (01) ==
PROVIDERS: Emergency Provider Nurse Practitioner Family
DX: M47.812 Spondylosis without myelopathy or radiculopathy, cervical region (principal); R51.9 Headache, unspecified; I10 Essential (primary) hypertension; J45.909 Unspecified asthma, uncomplicated
CPT/HCPCS: 36415; 70450; 71046; 72125; 80053; 85025; 99284

== ENCOUNTER 2024-03-14 19:58 | Emergency (ER) | payer OTHER, SELFPAY ==
--- NOTE | ~2024-03-14 | CT_ITS ---
CT brain wo con Ordering provider: Cindy Alonzo PA-C History: 43 years Female with . HTN, headache . Comparison: None. Technique: CT of the head without contrast. Radiation reduction technique utilized. FINDINGS: BRAIN PARENCHYMA AND CSF SPACES: No midline shift, mass effect or hemorrhage. The brain parenchyma a nd CSF spaces are otherwise normal. VISUALIZED PARANASAL SINUSES: Well aerated. MASTOIDS: Well aerated. BONES: The bones appear intact. SOFT TISSUES: Visualized nasopharynx is normal. Superficial soft tissues are normal. IMPRESSION: No acute intracranial findings. Reviewed, dictated and finalized at location A.
--- NOTE | ~2024-03-14 | XR_ITS ---
XR chest 1V portable Ordering provider: Cindy Alonzo PA-C History: 43 years Female with . HTN , HEADACHE, DIZZINESS, BLURRED VISION X 2 DAYS . Comparison: January 13, 2024 FINDINGS: MEDIASTINUM: The cardiac silhouette is not enlarged. Congestive arpan. LUNGS: No effusion or pneumothorax. Opacification in the right lung base suggestive of pneumonitis. F ollow-up advised. Fibrotic changes are possible. OTHER: No free air under the diaphragm. Degenerative spine. IMPRESSION: Opacification in the right lung base suggestive of pneumonitis. Follow-up advised. Reviewed, dictated and finalized at location A. IMPRESSION: Opacification in the right lung base suggestive of pneumonitis. Follow-up advis ed.
[2024-03-14 20:06] VITALS: BP 218/105; PULSE 102; RESP 20; TEMP 36.2; O2SAT 100
--- NOTE | 2024-03-14 20:36 | ECG_ITS ---
Test Date: 2024-03-14 20:42:05 Measurements Intervals [place] Rate: 95 P: 47 AR: 140 QRS: 12 QRSD: 93 T: 52 QT: 378 QTc: 477 Interpretive Statements SINUS RHYTHM NONSPECIFIC T-WAVE ABNORMALITY No previous ECG available for comparison Electronically Signed On 03-15-2024 12:41:48 CDT by Prosper Gibbs M.D.
[2024-03-14 20:53] LABS: Basophils Percent Auto 0.3 % (0.2-1.2); Eosinophils Absolute Auto 0.2 K/mm3 (0-0.3); Hematocrit 38.5 % (37.0-47.0); Hemoglobin 12.9 g/dL (12.0-15.0); Immature Granulocyte Absolute 0.03 K/mm3 (0.00-0.031); Immature Granulocyte Percent A 0.3 % (0-0.5); Lymphocytes Percent Auto 33.8 % (18.3-44.2); Mean Corpuscular HGB Conc 33.5 g/dl (32-36); Mean Corpuscular Hemoglobin 28.7 pg (26-34); Mean Corpuscular Volume 85.6 fl (80-100); Mean Platelet Volume 9.5 fl (7.4-10.4); Monocytes Absolute Auto 0.7 K/mm3 (0.1-0.6); Neutrophils Absolute Auto 5.7 K/mm3 (1.3-6.7); Neutrophils Percent Auto 56.6 % (45.5-73.1); Platelet Count Result 339 k/mm3 (150-375); Red Cell Distribution Width 14.6 % (11.5-14.5); White Blood Count 10.1 K/mm3 (4.5-10.0)
[2024-03-14 21:04] LABS: Alanine Aminotransferase 35 U/L (6-35); Albumin Level 4.2 g/dL (3.5-5.1); Alkaline Phosphatase 80 U/L (38-126); Anion Gap 10 mmol/L (4-12); Aspartate Amino Transferase 40 U/L (14-36); Bilirubin,Total 0.5 mg/dL (0.2-1.3); Blood Urea Nitrogen 14 mg/dL (7-17); Calcium 8.9 mg/dL (8.4-10.2); Carbon Dioxide 26 mmol/L (22-30); Chloride 101 mmol/L (98-107); Estimated CRCL calculation 93 ml/min; Estimated Glomerular Filt Rate > 60; Glucose 218 mg/dL (65-110); Potassium 2.9 mmol/L (3.4-5.0); Sodium 137 mmol/L (137-145)
--- NOTE | 2024-03-14 21:27 | ED.RECABL ---
HPI - Recheck/Abnormal Lab/Rx General Chief Complaint: Recheck/Abnormal Lab/Rx <Cindy Alonzo PA-C - Last Filed: 03/15/24 00:52> Stated Complaint: high bp, headache <Cindy Alonzo PA-C - Last Filed: 03/15/24 00:52> Time Seen by Provider: 03/14/24 21:00 <Cindy Alonzo PA-C - Last Filed: 03/15/24 00:52> History of Present Illness HPI narrative: 43-year-old female with history of hypertension and asthma presents to the emergency department for elevated blood pressure. Patient states today she had a headache and some dizziness so she checked her blood pressure and found it to be 220/158 came to the ED for further evaluation. 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 She takes metoprolol and losartan daily, however has not taken them in a few days because she has not had time to pick, but the pharmacy. She is reporting a frontal headache and some blurred vision. She denies focal numbness or weakness, head injury or trauma, loss of consciousness, chest pain or shortness of breath, abdominal pain, nausea vomiting, diarrhea, fever. She states she gets headaches when she has high blood pressure. She believes her symptoms are secondary to sleep deprivation. <Cindy Alonzo PA-C - Last Filed: 03/15/24 00:52> Related Data Home Medications: Home Medications Medication Instructions Recorded Confirmed albuterol 90 mcg/actuation aerosol 90 mcg inhalation PRN PRN 02/17/22 02/17/22 inhaler difficulty breathing losartan 25 mg tablet 25 mg PO DAILY 02/17/22 02/17/22 metoprolol tartrate 37.5 mg tablet 37.5 mg PO DAILY 02/17/22 02/17/22 mometasone-formoterol HFA 50 mcg-5 2 puff inhalation Q12H 02/17/22 02/17/22 mcg/actuation aerosol inhaler (Dulera) <Cindy Alonzo PA-C - Last Filed: 03/15/24 00:52> Allergies/Adverse Reactions: Allergies Allergy/AdvReac Type Severity Reaction Status Date / Time acetaminophen [From Vicodin] AdvReac Intermediate Other Verified 03/14/24 20:01 hydrocodone [From Vicodin] AdvReac Intermediate Other Verified 03/14/24 20:01 naproxen AdvReac Intermediate Other Verified 03/14/24 20:01 sulfamethoxazole AdvReac Nausea and Verified 03/14/24 20:01 [From Bactrim] Vomiting trimethoprim [From Bactrim] AdvReac Nausea and Verified 03/14/24 20:01 Vomiting <Cindy Alonzo PA-C - Last Filed: 03/15/24 00:52> Review of Systems Review of Systems: GENERAL: Well-appearing, well-nourished, and in no acute distress. HEAD: Normocephalic, atraumatic. EYES: PERRLA and EOMI. ENT: Nares clear, no rhinorrhea or epistaxis. Mucous membranes moist. NECK: Supple. CHEST: Clear to auscultation. No respiratory distress. HEART: Regular rate and rhythm. No murmur heard. Normal peripheral pulses. ABDOMEN: Soft, nontender, nondistended, normal active bowel sounds. EXTREMITIES: Normal range of motion. No edema. SKIN: Warm, dry, no rash. NEURO: No focal deficits. Alert and oriented x3 <ALMA Triana Last Filed: 03/15/24 00:52> PMFSH Past Medical History Medical History: Medical History Asthma Hypertension <ALMA Triana Last Filed: 03/15/24 00:52> Surgical History Surgical History: Surgical History H/O section <ALMA Triana Last Filed: 03/15/24 00:52> Social History Social History: Social History Smoking status: Never smoker Alcohol intake: never Substance use: never <ALMA Triana Last Filed: 03/15/24 00:52> Exam Narrative: GENERAL: Well-appearing, well-nourished, and in no acute distress. Somnolent, easily aroused with verbal stimuli HEAD: Normocephalic, atraumatic. EYES:
[2024-03-14 21:32] VITALS: BP 190/96; PULSE 91; RESP 15; O2SAT 100
[2024-03-14] MEDS: SODIUM CHLORIDE 0.9% IV 1,000 ML 999 ML IV CONT (21:58)
[2024-03-14] MEDS: ACETAMINOPHEN 500 MG TABLET 1000 MG PO (21:59)
[2024-03-14 22:00] LABS: Appearance Urine Clear (Clear); Bacteria Urine 1+ /hpf; Bilirubin Urine Negative (Negative); Blood Urine 1+ (Negative); Color Urine Yellow (Yellow); Glucose Urine UA 1+ mg/dL (Negative); Ketones Urine Negative (Negative); Leukocyte Esterase Ur Trace LEU/UL (Negative); Nitrate Urine Negative (Negative); Non Pathogenic Casts 0-2; Protein Urine 2+ mg/dL (Negative); Specific Grav Ur 1.011 (1.001-1.035); Squamous Epithelial Cell Urine Occasional /hpf (Few); Urobilinogen Urine 0.2 mg/dL (<2.0)
[2024-03-14] MEDS: MECLIZINE HCL 25 MG TABLET PO (22:02)
[2024-03-14 22:03] VITALS: PULSE 91
[2024-03-14 22:03] LABS: Add Urine Microscopic? YES
[2024-03-14] MEDS: LOSARTAN POTASSIUM 25 MG TABLET PO (22:03)
[2024-03-14] MEDS: METOPROLOL TARTRATE TAB 25 MG, METOPROLOL TARTRATE TAB 12.5 MG 37.5 MG PO (22:03)
[2024-03-14] MEDS: diphenhydrAMINE HCl INJ 50 MG/ML VIAL 25 MG IV PUSH (22:04)
[2024-03-14] MEDS: PROCHLORPERAZINE EDISYLATE 10 MG/2 ML VIAL IV PUSH (22:05)
[2024-03-14 23:35] LABS: Magnesium 1.8 mg/dL (1.6-2.3)
[2024-03-14] MEDS: POTASSIUM CHLORIDE 20 MEQ PACKET (FOR LIQUID) 40 MEQ PO (23:40)
[2024-03-14] MEDS: KCL 20 MEQ/SW 100 ML 100 ML 50 MEQ IVPB (23:41)
[2024-03-15 00:33] VITALS: BP 186/99; PULSE 90; RESP 14; O2SAT 97
[2024-03-15] MEDS: CEPHALEXIN 500 MG CAPSULE PO (00:41)
--- NOTE | 2024-03-15 01:17 | PC.NURSE ---
Pt states that IV was hurting her hand during her potassium infusion. Pt had a little over half of med infused. Pt stated if you dont take this IV out of my hand I am going to rip it out myself . This RN went to [facility] and asked if its okay I take it the IV out and how important it was for her to get all of potassium. [facility] stated that its okay for me to take out IV. IV was taken out by this RN.
== END 2024-03-15 01:24 | disposition home or self-care (01) ==
PROVIDERS: Emergency Medicine; Emergency Provider Physician Assistant
DX: I10 Essential (primary) hypertension (principal); E87.6 Hypokalemia; R82.998 Other abnormal findings in urine; J45.909 Unspecified asthma, uncomplicated; Z79.899 Other long term (current) drug therapy; R94.31 Abnormal electrocardiogram [ECG] [EKG]
CPT/HCPCS: 36415; 70450; 71045; 80053; 81001; 81025; 83735; 85025; 87077; 87086; 87088; 87186; 93005; 96365; 96375; 99284; A9270; J0780; J1200; J3480; J7030

== ENCOUNTER 2024-10-01 12:51 | Outpatient (CLI) | payer OTHER, SELFPAY ==
--- NOTE | ~2024-10-01 | XR_ITS ---
XR hip LT 2V w AP pelvis Ordering provider: Lauren Osorio History: . Pain in lt leg, NO INJURY . Comparison: None. FINDINGS: BONES: No acute fracture or dislocation. HIP JOINT SPACES: Bilateral hip moderate osteoarthritic changes. SACROILIAC JOINT SPACES/LUMBAR SPINE: The sacroiliac joint spaces are normal. Normal visualized lower lumbar spine. PUBIC SYMPHYSIS: Mild degenerative changes. Pubic symphysis. SOFT TISSUES: Normal. IMPRESSION: No acute osseous abnormality pelvis and left hip. Reviewed, dictated and finalized at location A. ING SHOW HOST
== END 2024-10-01 12:52 | disposition home or self-care (01) ==
DX: M79.605 Pain in left leg (principal)
CPT/HCPCS: 73502

== ENCOUNTER 2024-12-22 07:22 | Emergency (ER) | payer OTHER, SELFPAY ==
--- NOTE | ~2024-12-22 | XR_ITS ---
XR chest 2V 12/22/2024 07:48 Indication: Chest pain Procedure: 2 view chest Comparison: No prior studies for comparison. Findings: Heart size normal. No focal air space disease, pulmonary edema, pleural effusion or suspect ed pneumothorax. Shallow inspiration with crowding of the pulmonary vessels. Impression: 1: No acute cardiopulmonary disease. Reviewed, dictated and finalized at location B. Impression: 1: No acute cardiopulmonary disease.
--- NOTE | ~2024-12-22 | CT_ITS ---
EXAMINATION: CTA chest PE protocol DATE: 12/22/2024 09:00 CDT INDICATION: Chest pain TECHNIQUE: Computed tomographic angiography (CTA) of the chest was performed with 100 mL Omnipaque-35 0 intravenous contrast. The dose-length product was 418.43 mGy-cm. Maximum intensity projection 3D-re constructions of the aorta and other arteries were constructed by the technologist on a separate work station. COMPARISON: None. FINDINGS: Heart size mildly enlarged. Left ventricular hypertrophy. There is dependent atelectasis. N o endobronchial lesions. There are focal reticulonodular densities of the right lower lobe, suspiciou s for pneumonia. No significant pleural or pericardial effusion. Study is technically adequate withou t evidence for pulmonary embolism. The upper abdomen is unremarkable. There are borderline sized axil barb lymph nodes, nonspecific. No mediastinal lymphadenopathy. IMPRESSION: 1. Focal reticulonodular densities right lower lobe, suspicious for pneumonia. 2: No evidence for pulmonary embolism. 3: Borderline sized axillary lymph nodes, likely reactive. Reviewed, dictated and finalized at location B.
--- NOTE | 2024-12-22 07:25 | ECG_ITS ---
Test Date: 2024-12-22 07:34:23 Measurements Intervals [place] Rate: 75 P: 14 VT: 138 QRS: -7 QRSD: 86 T: 18 QT: 400 QTc: 449 Interpretive Statements SINUS RHYTHM MINIMAL VOLTAGE CRITERIA FOR LVH, CONSIDER NORMAL VARIANT [MEETS CRITERIA IN ONE OF: R(aVL), S(V1), R(V5), R(V5/V6)+S(V1)] NONSPECIFIC T WAVE ABNORMALITY Compared to ECG 03/14/2024 20:42:05 NO SIGNIFICANT CHANGES Electronically Signed On 12-22-2024 17:35:56 CDT by Prosper Gibbs M.D.
--- OUTSIDE RECORDS SUMMARY | 2024-12-22 07:25 | XMS_ITS | Referral Summary ---
Author Organization [facility] Address [address] [place] [phone] Care Team Providers Care Senior Risk Manager Name Role Phone Kenneth Rodriguez MD Primary Care Provider [phone] Tj Mccarthy MD PhD Unavailable Encounters Date Type Department Care Team Description 11/13/2024 11:00 AM DIAMOND CLEAVER Procedure visit [facility] Medical [facility] Obstetrical Gynecology [address] [facility] [address] [place] [phone] Abner Pollock MD Encounter for IUD insertion (Primary Dx) 11/08/2024 Telephone [facility] Obstetrical Gynecology [address] [place] [address] [place] [phone] Abner Pollock MD 10/23/2024 Telephone [facility] Obstetrical Gynecology [address] [facility] [address] [place] [phone] Abner Pollock MD 10/19/2024 9:00 AM DIAMOND CLEAVER - 10/19/2024 11:59 PM DIAMOND CLEAVER Hospital Encounter [facility] Diagnostic Imaging [address] [place] [address] Abnormal uterine bleeding (AUB); Abdominal pain Discharge Disposition: Discharge to home or self care 10/18/2024 Telephone [facility] Obstetrical Gynecology [address] [place] [address] [address] [place] [phone] Abner Pollock MD 10/16/2024 2:22 PM DIAMOND CLEAVER - 10/16/2024 11:59 PM DIAMOND CLEAVER Hospital Encounter [facility] [address] [place] [address] Abnormal uterine bleeding (AUB) Discharge Disposition: Discharge to home or self care 10/02/2024 Telephone [facility] Medical [facility] Hand Surgery [address] [facility] [address] [place] [phone] Arlene Shannon MD r/s surgery from Last 3 Months Allergies Active Allergy Reactions Criticality Noted Date Comments Naproxen Other (See comments),Nausea And Vomiting,Palpitations Low 05/10/2017 feel high Sulfamethoxazole-Trimet hoprim Nausea And Vomiting,Palpitations Low 11/24/2017 Hydrocodone-Acetaminoph en Dizziness,Nausea only Low 07/27/2021 Feeling high Medications metoprolol XL (TOPROL-XL) 25 mg extended release tablet daily 12/18/2018 Acti ve losartan-hydroC HLOROthiazide (HYZAAR) 100-12.5 mg per tablet daily 02/12/2019 Active albuterol 2.5 mg /3 mL (0.083 %) nebulizer solution 3 mL Active mometasone-form oterol (DULERA 200) 200-5 mcg/actuation inhaler every 12 hours Active Compact Space Chamber spacer USE WITH INHALER FOR BETTER RESULTS 01/28/2023 Active potassium chloride ER 10 mEq CR tablet TAKE ONE-HALF TABLET BY MOUTH ONCE EVERY DAY 10/29/2024 Active Hospital, Clinic, or Other Facility Administered Medication Ordered Dose Route Frequency Start Date End Date Status levonorgestreL (MIRENA) 21 mcg/24 hours (8 yrs) 52 mg IUDIndications:Abn ormal Uterine Bleeding intrauterine Continuous (implanted device) 10/19/2023 Active Active Problems Problem Noted Date Diagnosed Date Carpal tunnel syndrome of right wrist 08/02/2024 Anemia 07/27/2021 Iron deficiency anemia 07/27/2021 Social History Tobacco Use Types Packs/Day Years Used Date Smoking Tobacco: Never Smokeless Tobacco: Never Comments No Sex and Gender Information Value Date Recorded Sex Assigned at Not on file Legal Sex Female 6:55 PM DIAMOND CLEAVER Gender Identity Not on file Sexual Orientation Not on file Last Filed Vital Signs Vital Sign Reading Time Taken Comments Blood Pressure 154/82 11/13/2024 11:06 AM DIAMOND CLEAVER Pulse 88 08/04/2021 10:59 AM CDT Temperature 36.6 C (97.8 F) 08/04/2021 10:59 AM CDT Respiratory Rate 18 08/04/2021 10:59 AM CDT Oxygen Saturation 100% 08/04/2021 10:59 AM CDT Inhaled Oxygen Concentration - - Weight 99.4 kg (219 lb 3.2 oz) 11/13/2024 11:06 AM DIAMOND CLEAVER Height 162.6 cm (5' 4 ) 11/13/2024 11:06 AM DIAMOND CLEAVER Body Mass Index 37.63 11/13/2024 11:06 AM DIAMOND CLEAVER Plan of Treatment Not on file Procedures Procedure Name Priority Date/Time Associated Diagnosis Comments XR ABDOMEN SUPINE AND ERECT Schedule Routine, Read Routine (OP Routine) 10/19/2024 9:48 AM DIAMOND CLEAVER Abnormal uterine bleeding (AUB) Abdominal pain US PELVIS W ENDOVAGINAL Schedule Routine, Read Routine (OP Routine) 10/16/2024 3:10 PM DIAMOND CLEAVER Abnormal uterine bleeding (AUB) PAP AND HIGH RISK HPV, REFLEX TO GENOTYPING Routine 11/18/2023 10:14 AM DIAMOND CLEAVER ASCUS of cervix with negative high risk HPV DIAGNOSTIC MAMMOGRAM BILATERAL W [place] Schedule Routine, Read Routine (OP Routine) 02/02/2022 10:54 AM CDT Other abnormal and inconclusive findings on diagnostic imaging of breast from Last 3 Months or Most Recently Relevant to Health Maintenance Results * XR Abdomen Supine and Erect (10/19/2024 9:48 AM DIAMOND CLEAVER) Anatomical Region Laterality Modality Body, Abdomen N/A Computed Radiogr aphy 10/21/2024 9:33 PM DIAMOND CLEAVER Narrative 10/21/2024 9:36 PM DIAMOND CLEAVER EXAM DESCRIPTION: XR ABDOMEN SUPINE AND ERECT REASON FOR STUDY: assess for extrauterine location of IUD Pt sts: had an ultrasound X 1 week ago and they couldn't find iud, pain on bilateral hips X 2 weeks TECHNIQUE: Supine and erect radiographic views of the abdomen. COMPARISON: None FINDINGS: FREE AIR: None. BOWEL: Nonobstructive gas pattern. There is a large amount of stool in the colon. SOFT TISSUES: No abnormal calcifications. No IUD was seen. LINES/TUBES: None. BONES: No acute osseous abnormality. Moderate arthritis is seen in both hips. IMPRESSION: Moderate arthritis in the hips No IUD was seen. Large amount of stool in the colon. THIS IS AN ELECTRONICALLY VERIFIED FINAL REPORT 10/21/2024 9:36 PM - Electronically signed by Lane HONG T: Report ID: [id number] Reading Location: [id number] Procedure Note Kalia Pat MD - 10/21/2024 EXAM DESCRIPTION: XR ABDOMEN SUPINE AND ERECT REASON FOR STUDY: assess for extrauterine location of IUD Pt sts: had an ultrasound X 1 week ago and they couldn't find iud, pain on bilateral hips X 2 weeks TECHNIQUE: Supine and erect radiographic views of the abdomen. COMPARISON: None FINDINGS: FREE AIR: None. BOWEL: Nonobstructive gas pattern. There is a large amount of stool inthe colon. SOFT TISSUES: No abnormal calcifications. No IUD was seen. LINES/TUBES: None. BONES: No acute osseous abnormality. Moderate arthritis is seen in both hips. IMPRESSION: Moderate arthritis in the hips No IUD was seen. Large amount of stool in the colon. THIS IS AN ELECTRONICALLY VERIFIED FINAL REPORT 10/21/2024 9:36 PM - Electronically signed by Lane Pat M.D. HAL T: Report ID: [id number] Reading Location: [id number] Abner Pollock MD IMG XR PROCEDURES Final Result * US Pelvis W Endovaginal (10/16/2024 3:10 PM DIAMOND CLEAVER) Anatomical Region Laterality Modality Pelvis N/A Ultrasound 10/18/2024 6:41 AM DIAMOND CLEAVER Narrative 10/18/2024 6:45 AM DIAMOND CLEAVER EXAM DESCRIPTION: US PELVIS W ENDOVAGINAL REASON FOR STUDY: IUD placement TECHNIQUE: Grayscale ultrasound of the pelvic contents was performed with transabdominal and transvaginal transducer. COMPARISON: None. FINDINGS: UTERUS: The uterus is 8.4 x 6.6 x 5.7 cm. The uterus is retroverted and heterogeneous. Uterine fibroids are noted, from the fundus 2.3 x 3.1 x 3.0 cm and from the right uterine body subserosal fibroid 2.2 x 2.1 x 1.8 cm. Nabothian cyst is noted. The reported IUD is not identified.. ENDOMETRIUM: The endometrium measures 0.7 cm in thickness. Along the endometrium there is an echogenic nodule 0.4 x 0.5 x 0.3 cm may be a submucosal fibroid. A vascular stalk is not definitively seen, although an endometrial polyp is also possibility. RIGHT OVARY: The right ovary measures 1.7 x 1.4 x 3.2 cm. There is documentation of color Doppler flow in the right ovary. The right ovary appears unremarkable. LEFT OVARY: The left ovary measures 1.1 x 1.8 x 2.8 cm. There is documentation of color Doppler flow in the left ovary. The left ovary appears unremarkable. PELVIC FLUID: There is no evidence of free fluid in the pelvis. OTHER: No other significant findings. IMPRESSION: No evidence of an acute abnormality. IUD not identified. Uterine fibroids. Echogenic nodule along the endometrium 0.5 cm may be a submucosal fibroid or endometrial polyp. THIS IS AN ELECTRONICALLY VERIFIED FINAL REPORT 10/18/2024 6:45 AM - Electronically signed by Eliseo Harding M.D. T: Report ID: [id number] Reading Location: [id number] Procedure Note Eliseo Harding Jr., MD - 10/18/2024 EXAM DESCRIPTION: US PELVIS W ENDOVAGINAL REASON FOR STUDY: IUD placement TECHNIQUE: Grayscale ultrasound of the pelvic contents was performed with transabdominal and transvaginal transducer. COMPARISON: None. FINDINGS: UTERUS: The uterus is 8.4 x 6.6 x 5.7 cm. The uterus isretroverted and heterogeneous. Uterine fibroids are noted, from the fundus 2.3 x 3.1x 3.0 cm and from the right uterine body subserosal fibroid 2.2 x 2.1 x 1.8cm. Nabothian cyst is noted. The reported IUD is not identified.. ENDOMETRIUM: The endometrium measures 0.7 cm in thickness. Along the endometrium there is an echogenic nodule 0.4 x 0.5 x 0.3 cm may be a submucosal fibroid. A vascular stalk is not definitively seen, althoughan endometrial polyp is also possibility. RIGHT OVARY: The right ovary measures 1.7 x 1.4 x 3.2 cm. There is documentation of color Doppler flow in the right ovary. The right ovary appears unremarkable. LEFT OVARY: The left ovary measures 1.1 x 1.8 x 2.8 cm. There is documentation of color Doppler flow in the left ovary. The left ovaryappears unremarkable. PELVIC FLUID: There is no evidence of free fluid in the pelvis. OTHER: No other significant findings. IMPRESSION: No evidence of an acute abnormality. IUD not identified. Uterine fibroids. Echogenic nodule along the endometrium 0.5 cm may be a submucosal fibroidor endometrial polyp. THIS IS AN ELECTRONICALLY VERIFIED FINAL REPORT 10/18/2024 6:45 AM - Electronically signed by Eliseo Harding M.D. T: Report ID: [id number] Reading Location: [id number] Abner Pollock MD [facility] PROCEDURES Final Result * Pap and High Risk HPV and Genotyping (Cytology Component) (11/18/2023 10:14 AM DIAMOND CLEAVER) Thin prep (Pap test) 11/18/2023 10:14 AM DIAMOND CLEAVER 11/21/2023 8:14 AM DIAMOND CLEAVER Narrative PATHOLOGY [facility] - 11/28/2023 3:53 PM DIAMOND CLEAVER EPIC results best viewed via link to PDF [facility] [place] [address] Note to Patients: This report may contain a detailed description of human tissue sent by a health care provider to the laboratory for pathologic evaluation. The content of this report is essential for diagnosis and may provide important critical findings. This information may be unfamiliar to patients to review without a medical professional present. It is advised that the patient review this report in the presence of a health care provider who can answer questions and explain the details. CYTOPATHOLOGY REPORT FINAL Patient Name: CAROLYN SHELTON Gender: F : 1980 (Age: 43) Address: [address] [place] [phone] Hospital #: [id number] Service: UNKNOWN Location: Patient Type: [facility] SPECIMEN Taken: 11/18/2023 Received: 11/21/2023 Accessioned: 11/22/2023 Reported: 11/28/2023 Physician(s): Abner Pollock M.D. FINAL INTERPRETATION SOURCE OF SPECIMEN Liquid based Thin Prep pap with HPV: STATEMENT OF ADEQUACY - Satisfactory for evaluation - Endocervical cells/transformation zone sample present GENERAL CATEGORIZATION: - Negative for squamous intraepithelial lesion or malignancy Comments (Normal-Negative for High Risk HPV) HPV HR 16- Not Detected HPV HR 18-Not Detected HPV HR non 16/18- Not Detected Interpretive Data Nucleic acid amplification for detection of high-risk Human Papilloma virus (HPV) is performed by the Oz [employer]ores 6800 HPV test. This assay specifically detects HPV- 16 and HPV-18 genotypes. The following HPV genotypes are detected as high-risk HPV: HPV-31, 33, 35, 39, 45, 51, 52, 56, 58, 59, 66, and 68. This assay has been approved by the [place] Food and Drug Administration for detection of HPV in cervical specimens collected by a physician using an endocervical brush/spatula or cervical broom and placed in the ThinPrep Pap Test PreservCyt collection containers. The performance characteristics of this test have been verified by the [facility] Molecular Infectious Disease laboratory. Correlate with reported cytology results, as applicable. Interpretive data last revised 23 This specimen has been rescreened in accordance with this laboratory's Campus Administrative Assistant Program. jxh/11/28/2023 15:53 Felecia Lawson MS, CT (ASCP) Report Electronically Reviewed and Signed Out By ANGÉLICA Vasquez(ASCP), [facility] 11/28/2023 15:53:46 Cervicovaginal Cytology (Pap Test) Disclaimer: The Pap test is a screening test used to detect cervical cancer and its precursors; it is not a diagnostic procedure. False negative and false positive results do occur. Pap test results should be interpreted in the context of pertinent clinical information and biopsy results as indicated. [facility] Clinical Laboratory Improvement Amendments (CLIA) mandate that cytologic and histologic results be correlated for laboratory air quality engineer & improvement standards. FOR ALL HIGH-GRADE CASES we request submission of follow-up histological material and/or reports that have not been previously provided so that we may fulfill said required standards. Gross Description A. Liquid based Thin Prep pap with HPV: Cervical/vaginal - Screening 2 ThinPrep Slides Clinical Diagnosis and History Last Menstrual Period: IUD The patient is a 43 year old woman with screen 10/19/23 unsatisfactory. Report Images and scanned documents, if included only viewable in PDF version The performance characteristics of some immunohistochemical stains, in-situ hybridization and fluorescence in-situ hybridization tests and immunophenotyping by flow cytometry cited in this report (if any) were determined by the Surgical Pathology Department at [facility] as part of an ongoing quality supervisor program and in compliance with federally mandated regulations drawn from the Clinical Laboratory Improvement Act of 1988 (CLIA '88). Some of these tests rely on the use of analyte specific reagents and are subject to specific labeling requirements by the [place] Food and Drug Administration. Such diagnostic tests may only be performed in a facility that is certified by the Department of Health and Human Services as a high complexity laboratory under CLIA '88. The FDA has determined that such clearance or approval is not necessary. This test is used for clinical purposes. It should not be regarded as investigational or for research. Nevertheless, federal rules concerning the medical use of analyte specific reagents require that the following disclaimer be attached to the report: This test was developed and its performance characteristics determined by the Surgical Pathology Department of [facility]. It has not been cleared or approved by the [place]. S. Food and Drug Administration. Abner Pollock MD LAB CYTOLOGY ORDERABLES Final Result PATHOLOGY [facility] * Diagnostic Mammogram Bilateral [place] (02/02/2022 10:54 AM CDT) Anatomical Region Laterality Modality Breast Bilateral Mammography 02/02/2022 11:5 8 AM CDT Impressions 02/02/2022 11:58 AM CDT Probably benign masses bilateral breast 11:00 positions. Six-month sonographic follow-up is advised. BI-RADS 3 Findings and recommendations were communicated to the patient. Electronically signed by: Tamara Reyes M.D. Narrative 02/02/2022 11:58 AM CDT EXAMINATION/TECHNIQUE: Bilateral digital diagnostic mammogram including cad and digital breast tomosynthesis. Ultrasound bilateral breast. HISTORY: Bilateral breast masses COMPARISON: Recent screening exam FINDINGS: The breasts are heterogenously dense, which may obscure small masses. Right breast: Predominantly well-circumscribed mass in the upper outer breast is noted on spot compression images. Ultrasound was done for further evaluation. Ultrasound right breast shows a heterogenous partly anechoic partly hypoechoic 1.3 x 1.0 0.8 cm mass at 11 o'clock position, 6 cm from nipple in the region of mammographic mass. Likely benign cyst cluster. Rest of the scan breast shows few scattered benign cyst. Left breast: On spot compression images mass in the medial superior anterior breast persisted with no associated architectural distortion. Ultrasound of this region shows a heterogenous partly hypoechoic partly anechoic mass at 11 o'clock position, 4 cm from nipple measuring 1.2 x 0.8 x 1.4 cm in size, likely benign cyst cluster. Few adjacent benign cysts and dilated ducts are noted. Kenneth Rodriguez MD IMG MAMMO PROCEDURES Final Re sult from Last 3 Months or Most Recently Relevant to Health Maintenance Insurance [facility] Care Teams Senior Risk Manager Relationship Specialty Start Date End Date Kenneth Rodriguez MD [address] [place] [id number] PCP - General Internal Medicine 07/27/21 Tj Mccarthy MD PhD [address] [place] [id number] Medical Oncologist/Roller Printing Supervisor Medical Oncology 07/27/21
--- OUTSIDE RECORDS SUMMARY | 2024-12-22 07:25 | XMS_ITS | Clinical Summary ---
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 Name Role Phone Kenneth Rodriguez MD Primary Care Provider Tj Mccarthy MD PhD Unavailable [phone] Allergies Active Allergy Reactions Criticality Noted Date [...] 08/02/2024 Anemia 07/27/2021 Iron deficiency anemia 07/27/2021 Encounters Date Type Department Care Team Description 11/13/2024 11:00 AM BINDER FIXER Procedure visit [facility] Obstetrical Gynecology [address] [place] [address] Abner Pollock MD Encounter for IUD insertion (Primary Dx) 11/08/2024 Telephone [facility] Obstetrical Gynecology [address] [place] [address] [address] [place] [address] Abner Pollock MD 10/23/2024 Telephone [facility] Obstetrical Gynecology [address] [place] [address] [address] [place] [phone] Abner Pollock MD 10/19/2024 9:00 AM BINDER FIXER - 10/19/2024 11:59 PM BINDER FIXER Hospital Encounter [facility] [address] [place] [phone] Abnormal uterine bleeding (AUB); Abdominal pain Discharge Disposition: Discharge to home or self care 10/18/2024 Telephone [facility] Obstetrical Gynecology [address] [place] [address] [address] [place] [address] Abner Pollock MD 10/16/2024 2:22 PM BINDER FIXER - 10/16/2024 11:59 PM BINDER FIXER Hospital Encounter [facility] [address] [place] [phone] Abnormal uterine bleeding (AUB) Discharge Disposition: Discharge to home or self care 10/02/2024 Telephone [facility] Hand Surgery [address] [address] [place] [phone] Arlene Shannon MD r/s surgery from Last 3 Months Surgical History Surgery Date Site/Laterality Comments SECTION Medical History Medical History Date Comments Asthma Hypertension Family History Medical History Relation Name Comments Breast cancer Neg Hx Endometrial cancer Neg Hx Ovarian cancer Neg Hx Social History Tobacco Use Types Packs/Day Years Used Date Smoking Tobacco: Never Smokeless Tobacco: Never Comments No Sex and Gender Information Value Date Recorded Sex Assigned at Not on file Legal Sex Female 6:55 PM BINDER FIXER Gender Identity Not on file Sexual Orientation Not on file Obstetrics History Para Term AB IAB SAB Ectopic Multiple Livin g Live Births 3 2 2 Date Outcome GA Total Labor Labor/2nd/3rd Weight Sex Type Anes PTL Kyleigh A1 A5 Name Clin Term Term Last Filed Vital Signs Vital Sign Reading Time Taken Comments Blood Pressure 154/82 11/13/2024 11:06 AM BINDER FIXER Pulse 88 08/04/2021 10:59 AM CDT Temperature 36.6 C (97.8 F) 08/04/2021 10:59 AM CDT Respiratory Rate 18 08/04/2021 10:59 AM CDT Oxygen Saturation 100% 08/04/2021 10:59 AM CDT Inhaled Oxygen Concentration - - Weight 99.4 kg (219 lb 3.2 oz) 11/13/2024 11:06 AM BINDER FIXER Height 162.6 cm (5' 4 ) 11/13/2024 11:06 AM BINDER FIXER Body Mass Index 37.63 11/13/2024 11:06 AM BINDER FIXER Plan of Treatment Health Maintenance Due Date Last Done Comments Colon Cancer Screening-Colonoscopy 1978 Depression Screening 1978 Hepatitis C Screening 1978 DTaP/Tdap/Td Vaccine (1 - Tdap) 1989 Hepatitis B Screening 1996 Regular Well Visit/Exam 18-64 1996 Pneumococcal vaccine <65 (1 of 2 - PCV) 1997 Influenza Vaccine (#1) 2024 Cervical Cancer Screening 11/18/20242023, 11/18/2023, 10/19/2023, Additional history exists Breast Cancer Screening-Mammogram 01/12/2025 01/13/2024, 02/02/2022, 12/17/2021, Additional history exists HPV Vaccines Aged Out No longer eligi ble based on patient's age to complete this topic Procedures Procedure Name Priority Date/Time Associated Diagnosis Comments XR ABDOMEN SUPINE AND ERECT Schedule Routine, Read Routine (OP Routine) 10/19/2024 9:48 AM BINDER FIXER Abnormal uterine bleeding (AUB) Abdominal pain US PELVIS W ENDOVAGINAL Schedule Routine, Read Routine (OP Routine) 10/16/2024 3:10 PM BINDER FIXER Abnormal uterine bleeding (AUB) PAP AND HIGH RISK HPV, REFLEX TO GENOTYPING Routine 11/18/2023 10:14 AM BINDER FIXER ASCUS of cervix with negative high risk HPV DIAGNOSTIC MAMMOGRAM BILATERAL [place] Schedule Routine, Read Routine (OP Routine) 02/02/2022 10:54 AM CDT Other abnormal and inconclusive findings on diagnostic imaging of breast from Last 3 Months or Most Recently Relevant to Health Maintenance Results * XR Abdomen Supine and Erect (10/19/2024 9:48 AM BINDER FIXER) Anatomical Region Laterality Modality Body, Abdomen N/A Computed Radiogr aphy 10/21/2024 9:33 PM BINDER FIXER Narrative 10/21/2024 9:36 PM BINDER FIXER EXAM DESCRIPTION: XR ABDOMEN SUPINE AND ERECT [...] Lane Pat M.D. HAL T: Report ID: [id number] Reading Location: [id number] Procedure Note Kalia Pat MD - 10/21/2024 [...] signed by Lane HONG T: Report ID: [id number] Reading Location: [place] [address] Abner Pollock MD IMG XR PROCEDURES Final Result * US Pelvis W Endovaginal (10/16/2024 3:10 PM BINDER FIXER) Anatomical Region Laterality Modality Pelvis N/A Ultrasound 10/18/2024 6:41 AM BINDER FIXER Narrative 10/18/2024 6:45 AM BINDER FIXER EXAM DESCRIPTION: US PELVIS W ENDOVAGINAL REASON [...] AM - Electronically signed by Eliseo Harding M.D., CH T: Report ID: [id number] Reading Location: [place] [address] Procedure Note Eliseo Harding Jr., MD - [...] by Eliseo Harding M.D. T: Report ID: [id number] Reading Location: [id number] Abner Pollock MD IMG US PROCEDURES Final Result * Pap and High Risk HPV and Genotyping (Cytology Component) (11/18/2023 10:14 AM BINDER FIXER) Thin prep (Pap test) 11/18/2023 10:14 AM BINDER FIXER 11/21/2023 8:14 AM BINDER FIXER Narrative PATHOLOGY [facility] - 11/28/2023 3:53 PM BINDER FIXER EPIC results best viewed via link to PDF [facility] [place] [address] Note to Patients: This report may contain [...] Gender: F : 1980 (Age: 43) Address: [facility] [place] [address] [facility] #: [id number] Service: UNKNOWN Location: Patient Type: B SPECIMEN Taken: 11/18/2023 Received: 11/21/2023 Accessioned: 11/22/2023 [...] this test have been verified by the [facility] Molecular Infectious Disease laboratory. Correlate with reported cytology results, as applicable. Interpretive data last revised 23 This specimen has been rescreened in accordance with this laboratory's Personal Driver Program. [facility]/11/28/2023 15:53 Felecia Lawson MS, CT (ASCP) Report Electronically Reviewed and Signed Out By ANGÉLICA Vasquez(ASCP), [facility] 11/28/2023 15:53:46 Cervicovaginal Cytology (Pap Test) Disclaimer: The Pap test is a screening test used to detect cervical cancer and its precursors; it is not a diagnostic procedure. False negative and false positive results do occur. Pap test results should be interpreted in the context of pertinent clinical information and biopsy results as indicated. [facility] Clinical Laboratory Improvement Amendments (CLIA) mandate that cytologic and histologic results be correlated for laboratory coding quality analyst & improvement standards. FOR ALL HIGH-GRADE CASES [...] determined by the Surgical Pathology Department at [facility] as part of an ongoing quality control tech program and in compliance with federally mandated [...] determined by the Surgical Pathology Department of [facility]. It has not been cleared or approved by the U. S. Food and Drug Administration. Abner Pollock MD LAB CYTOLOGY ORDERABLES Final Result PATHOLOGY [facility] * Diagnostic Mammogram Bilateral [place] (02/02/2022 10:54 AM CDT) Anatomical Region Laterality Modality Breast Bilateral Mammography 02/02/2022 11:5 8 AM CDT Impressions 02/02/2022 11:58 AM CDT Probably benign masses bilateral breast 11:00 positions. Six-month sonographic follow-up is advised. BI-RADS 3 Findings and recommendations were communicated to the patient. Electronically signed by: Jackie Waite 02/02/2022 11:58 AM CDT EXAMINATION/TECHNIQUE: Bilateral digital [...] Most Recently Relevant to Health Maintenance Insurance [facility] Care Teams Yard Cleaner Relationship Specialty Start Date End Date Kenneth Rodriguez MD [address] [place] [id number] PCP - General Internal Medicine 07/27/21 Tj Mccarthy MD PhD [address] [place] [id number] Medical Oncologist/Stonecutter Apprentice Hand Medical Oncology 07/27/21
--- OUTSIDE RECORDS SUMMARY | 2024-12-22 07:25 | XMS_ITS | Clinical Summary ---
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 Gender Identity Not on file Sexual Orientation Not on file Plan of Treatment Health Maintenance Due Date Last Done Comments Hepatitis C Virus (HCV) Screening 1978 TdaP Immunization 1978 Hepatitis B Immunization (1 of 3 - 19+ 3-dose series) 1997 Pap Smear 1999 Cervical Cancer Screening (CCS) 2008 HPV/Cotest 2008 Discussion re Starting/Frequ ency of Mammograms 2018 Colonoscopy 2023 Colorectal Cancer Screening 2023 Influenza Immunization (#1) 2024 SARS-COV-2 Immunization ( season) 2024 Respiratory Syncytial Virus (RSV) Immunization (Adult) (1 - 1-dose 75+ series) 2053 Meningococcal Immunization (ACWY) Aged Out No longer eligible based on patient's age to complete this topic Pneumococcal Immunization Combined Aged Out No longer eligible based on patient's age to complete this topic Rotavirus Immunization Aged Out No lo nger eligible based on patient's age to complete this topic
--- OUTSIDE RECORDS SUMMARY | 2024-12-22 07:25 | XMS_ITS | Data Portability ---
Author Organization [facility] Address [address] [place] [address] Care Team Providers Care Clinical Pharmacy Specialist Name Role Phone ABEL RODRIGUEZAM Primary Care Provider [phone] Assessment No assessment recorded. Plan of Treatment Reminders Order Date Submit Date Provider Last Modified By Organization Details Last Modified Time Details Appointments None recorded. Lab glucose, fingerstic k, blood 2024 025 [facility] In-Office Order, Internal Use Only DO Not Attach Compendium DO Not Attach Compendium, Do Not Delete/merge, [id number] 12:04:36 HbA1c (hemoglobi n A1c), blood 2023 024 [facility] In-Office Order, Internal Use Only DO Not Attach Compendium DO Not Attach Compendium, Do Not Delete/merge, [id number] 10:57:51 CMP, serum or plasma 2023 024 [facility], [address], [address], [place], [address], 4 13:16:27 TSH, ultra-sens itive, serum 2023 024 [facility], [address], [address], [place], [address], 4 13:16:28 HbA1c (hemoglobi n A1c), blood 2023 024 [facility] In-Office Order, Internal Use Only DO Not Attach Compendium DO Not Attach Compendium, Do Not Delete/merge, [id number] 11:02:09 CMP, serum or plasma 2023 024 [facility], [address], [address], [place], [address], 4 11:17:18 Referral None recorded. Procedures None recorded. Surgeries None recorded. Imaging XR, hip + pelvis, unilateral , 2 or 3 view 2023 024 [facility], [address], [place], [address], 5 09:39:35 Medication Orders potassium chloride ER 10 mEq tablet,ext ended release 2024 025 [facility], [facility], [address] [place] [address], [id number], 5 17:09:01 Rybelsus 3 mg tablet 2023 024 [facility], [place], [address] [place] [address], [id number], 4 10:57:43 metoprolol succinate ER 50 mg tablet,ext ended release 24 hr 2023 024 [facility], [place], [address] [place] [address], [id number], 5 17:09:02 losartan 100 mg-hydroch lorothiazi de 12.5 mg tablet 2023 024 [facility], [place], [address] [place] [address], [id number], 5 17:09:04 Patient TargetsNo targets recorded. Patient Instructions Encounter Date Encounter Id Patient Instructions Last Modified By Organization Details Last Modified Time 05/15/2024 [id number] learning about high blood sugar [facility] Not available 05/15/2024 11:02:02 high blood pressure: care instructions [facility] Not available 05/15/2024 11:02:02 07/05/2024 [id number] influenza (flu) vaccine: care instructions [facility] Not available 07/05/2024 10:57:43 learning about asthma [facility] Not available 07/05/2024 10:57:43 learning about high blood sugar [facility] Not available 07/05/2024 10:57:43 learning about high blood pressure [facility] Not available 07/05/2024 10:57:43 anemia: care instructions [facility] Not available 07/05/2024 10:57:43 09/27/2024 [id number] When You Want to Lose Weight: Care Instructions [facility] Not available 09/27/2024 12:40:51 learning about high blood sugar [facility] Not available 09/27/2024 12:40:51 learning about high blood pressure [facility] Not available 09/27/2024 12:40:51 labs discussed [facility] Not available 1 11/28/2023 12:41:14 10/26/2024 [id number] chest pain: care instructions [place] Not available 10/26/2024 13:03:22 learning about high blood sugar [facility] Not available 10/26/2024 13:03:22 learning about high blood pressure [facility] Not available 10/26/2024 13:03:22 hypokalemia: car e instructions [place] Not available 10/26/2024 13:40:57 11/02/2024 [id number] learning about high blood sugar [facility] Not available 11/02/2024 12:04:36 Reason for Referral None Reported. Results Created Date Observation Date Name Description Value Unit Range Abnormal Flag Note LastModifiedBy Organization Detail LastModifiedTime 05/15/2005/15/2024 HbA1c (hemo globi n A1c), blood HbA1c 8.0 Not Available In-Office Order Internal Use Only DO Not Attach Compendium DO Not Attach Compendium, Do Not Delete/merge, [id number] 05/15/2024 10:38:19 07/05/2007/06/2024 COMP. METAB OLIC PANEL (14) glucose 141 mg/dL 70-99 above high normal Not Available [facility] ([facility]) [address] [facility] [address], [place], [address], 07/06/2024 13:16:27 07/05/20 24 07/06/2024 COMP. METAB OLIC PANEL (14) BUN 15 mg/dL 6-24 Not Available [facility] ([facility]) [address] [facility] [address], [place], [address], 07/06/2024 13:16:27 07/05/20 24 07/06/2024 COMP. METAB OLIC PANEL (14) creatinine 0.92 mg/dL 0.57-1 .00 Not Available [facility] ([facility]) [address] [facility] [place], [address], 07/06/2024 13:16:27 07/05/20 24 07/06/2024 COMP. METAB OLIC PANEL (14) eGFR 78 mL/mi n/1.7 3 >59 Not Available [facility] ([facility]) [address] [facility] [address], [place], [address], 07/06/2024 13:16:27 07/05/20 24 07/06/2024 COMP. METAB OLIC PANEL (14) BUN/creatini ne ratio 16 9-23 Not Available [facility] ([facility]) [address] [facility] [place], [address], 07/06/2024 13:16:27 07/05/20 24 07/06/2024 COMP. METAB OLIC PANEL (14) sodium 140 mmol/ L 134-14 4 Not Available [facility] ([facility]) [address] [facility] [place], [address], 07/06/2024 13:16:27 07/05/20 24 07/06/2024 COMP. METAB OLIC PANEL (14) potassium 4.1 mmol/ L 3.5-5. 2 Not Available [facility] ([facility]) [address] [facility] [place], [address], 07/06/2024 13:16:27 07/05/20 24 07/06/2024 COMP. METAB OLIC PANEL (14) chloride 101 mmol/ L 96-106 Not Available [facility] ([facility]) [address] [facility] [address], [place], [address], 07/06/2024 13:16:27 07/05/20 24 07/06/2024 COMP. METAB OLIC PANEL (14) carbon dioxide, total 24 mmol/ L 20-29 Not Available [facility] ([facility]) [address] [facility] [address], [place], [address], 07/06/2024 13:16:27 07/05/20 24 07/06/2024 COMP. METAB OLIC PANEL (14) calcium 9.7 mg/dL 8.7-10 .2 Not Available [facility] ([facility]) [address] [facility] [address], [place], [address], 07/06/2024 13:16:27 07/05/20 24 07/06/2024 COMP. METAB OLIC PANEL (14) protein, total 7.4 g/dL 6.0-8. 5 Not Available [facility] ([facility]) [address] [facility] [address], [place], [address], 07/06/2024 13:16:27 07/05/20 24 07/06/2024 COMP. METAB OLIC PANEL (14) albumin 4.2 g/dL 3.9-4. 9 Not Available [facility] ([facility]) [address] [facility] [address], [place], [address], 07/06/2024 13:16:27 07/05/20 24 07/06/2024 COMP. METAB OLIC PANEL (14) globulin, total 3.2 g/dL 1.5-4. 5 Not Available [facility] ([facility]) [address] [facility] [address], [place], [address], 07/06/2024 13:16:27 07/05/20 24 07/06/2024 COMP. METAB OLIC PANEL (14) bilirubin, total 0.7 mg/dL 0.0-1. 2 Not Available [facility] ([facility]) [address] [place], [address], 07/06/2024 13:16:27 07/05/20 24 07/06/2024 COMP. METAB OLIC PANEL (14) alkaline phosphatase 79 IU/L 44-121 Not Available [facility] ([facility]) [address] [place], [address], 07/06/2024 13:16:27 07/05/20 24 07/06/2024 COMP. METAB OLIC PANEL (14) AST (SGOT) 23 IU/L 0-40 Not Available [facility] ([facility]) [address] [place], [address], 07/06/2024 13:16:27 07/05/20 24 07/06/2024 COMP. 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 tor.s olubl e [Mole s/vol ume] in Serum or Plasm a transferrin receptor.vance uble [mass/volume ] in serum or plasma 6.6 mg/L low: 1.9mg/ Lhigh: 4.4mg/ L high Solub le Trans ena n Geospatial Analyst tor 6.6 (H) 1.9 - 4.4 mg/L 10/15 4:21 PM CLINICAL DOCUMENTATION IMPROVEMENT SPECIALIST [facility] ([facility] Not Available Not Available 11/21/2024 13:56:41 10/12/1910/15/2024 Trans ena n switchboard operator receptionist tor.s olubl e [Mole s/vol ume] in Serum or Plasm a interpretati on and review of laboratory results Abnorm al Not Available Not Available 13:56:41 10/12/1910/12/2024 Iron satur ation [Mass Fract ion] in Serum or Plasm a iron [mass/volume ] in serum or plasma 18 ug/dL low: 40ug/d Lhigh: 150ug/ dL low Iron 18 (L) 40 - 150 ug/dL 10/12 12:56 PM CLINICAL DOCUMENTATION IMPROVEMENT SPECIALIST [facility] Not Available Not Available 11/21/2024 13:56:41 10/12/1910/12/2024 Iron satur ation [Mass Fract ion] in Serum or Plasm a transferrin [mass/volume ] in serum or plasma 266 mg/dL low: 174mg/ dLhigh : 382mg/ dL Trans ena n 266 174 - 382 mg/dL 10/12 12:56 PM CLINICAL DOCUMENTATION IMPROVEMENT SPECIALIST [facility] [place] Not Available Not Available 11/21/2024 13:56:41 10/12/1910/12/2024 Iron satur ation [Mass Fract ion] in Serum or Plasm a transferrin saturation % 5 % low: 16%hig h: 50% low Trans ena n Satur ation % 5 (L) 16 - 50 % 10/12 12:56 PM CLINICAL DOCUMENTATION IMPROVEMENT SPECIALIST [facility] [place] Not Available Not Available 11/21/2024 13:56:41 10/12/19 25 10/12/2024 Iron satur ation [Mass Fract ion] in Serum or Plasm a iron binding capacity [mass/volume ] in serum or plasma 333 ug/dL low: 240ug/ dLhigh : 450ug/ dL TIBC Calcu lated 333 240 - 450 ug/dL 10/12 12:56 PM CLINICAL DOCUMENTATION IMPROVEMENT SPECIALIST [facility] [place] Not Available Not Available 11/21/2024 13:56:41 10/12/19 25 10/12/2024 Iron satur ation [Mass Fract ion] in Serum or Plasm a interpretati on and review of laboratory results Abnorm al Not Available Not Available 13:56:41 10/12/19 25 10/12/2024 Ena tin [Mass /volu me] in Serum or Plasm a ferritin [mass/volume ] in serum or plasma 15 NG/mL low: 13NG/m Lhigh: 204NG/ mL Ena tin 15 13 - 204 ng/mL 10/12 1:12 PM CLINICAL DOCUMENTATION IMPROVEMENT SPECIALIST [facility] Not Available Not Available 11/21/2024 13:56:41 10/12/19 25 10/12/2024 Ena tin [Mass /volu me] in Serum or Plasm a interpretati on and review of laboratory results Normal Not Available Not Available 11/03 13:56:41 10/12/19 25 10/12/2024 CBC W Auto Diffe renti al panel - Blood leukocytes [#/volume] in blood by automated count 9.7 text: 4.0 - 10.7 x10e9/ L WBC 9.7 4.0 - 10.7 x10E9 /L 10/12 12:26 PM CLINICAL DOCUMENTATION IMPROVEMENT SPECIALIST [facility] Not Available Not Available 11/21/2024 13:56:41 10/12/19 25 10/12/2024 CBC W Auto Diffe renti al panel - Blood erythrocytes [#/volume] in blood by automated count 4.25 text: 3.90 - 5.20 x10e12 /L RBC Count 4.25 3.90 - 5.20 x10E1 2/L 10/12 12:26 PM CLINICAL DOCUMENTATION IMPROVEMENT SPECIALIST [facility] [place] Not Available Not Available 11/21/2024 13:56:41 10/12/19 25 10/12/2024 CBC W Auto Diffe renti al panel - Blood hemoglobin [mass/volume ] in blood 11.8 g/dL low: 11.9g/ dLhigh : 15.8g/ dL low Hemog lobin 11.8 (L) 11.9 - 15.8 g/dL 10/12 12:26 PM CLINICAL DOCUMENTATION IMPROVEMENT SPECIALIST [facility] [place] Not Available Not Available 11/21/2024 13:56:41 10/12/19 25 10/12/2024 CBC W Auto Diffe renti al panel - Blood hematocrit [volume fraction] of blood by automated count 34.7 % low: 34.8%h igh: 46.1% low Hemat ocrit 34.7 (L) 34.8 - 46.1 % 10/12 12:26 PM CLINICAL DOCUMENTATION IMPROVEMENT SPECIALIST [facility] [place] Not Available Not Available 11/21/2024 13:56:41 10/12/1910/12/2024 CBC W Auto Diffe joslynti al panel - Blood MCV [entitic volume] by automated count 81.6 fL low: 80fLhi gh: 98fL MCV 81.6 80.0 - 98.0 fL 10/12 12:26 PM [facility] [place] Not Available Not Available 11/21/2024 13:56:41 10/12/19 25 10/12/2024 CBC W Auto Diffe peggy al panel - Blood MCH [entitic mass] by automated count 27.8 pg low: 26.7pg high: 33.6pg MCH 27.8 26.7 - 33.6 pg 10/12 12:26 PM [facility] [place] Not Available Not Available 11/21/2024 13:56:41 10/12/1910/12/2024 CBC W Auto Diffe joslynti al panel - Blood MCHC [mass/volume ] by automated count 34 g/dL low: 31.7g/ dLhigh : 36.3g/ dL MCHC 34.0 31.7 - 36.3 g/dL 10/12 12:26 PM CLINICAL DOCUMENTATION IMPROVEMENT SPECIALIST [facility] [place] Not Available Not Available 11/21/2024 13:56:41 10/12/19 25 10/12/2024 CBC W Auto Diffe peggy al panel - Blood erythrocyte distribution width [ratio] by automated count 12.1 % low: 11.3%h igh: 14.8% RDW-C V 12.1 11.3 - 14.8 % 10/12 12:26 PM CLINICAL DOCUMENTATION IMPROVEMENT SPECIALIST [facility] [place] Not Available Not Available 11/21/2024 13:56:41 10/12/19 25 10/12/2024 CBC W Auto Diffe renti al panel - Blood platelets [#/volume] in blood by automated count 377 text: 150 - 420 x10e9/ L Plate let Count 377 150 - 420 x10E9 /L 10/12 12:26 PM CLINICAL DOCUMENTATION IMPROVEMENT SPECIALIST [facility] Not Available Not Available 11/21/2024 13:56:41 10/12/19 25 10/12/2024 CBC W Auto Diffe renti al panel - Blood platelet mean volume [entitic volume] in blood by automated count 9.5 fL low: 7.8fLh igh: 11.4fL MPV 9.5 7.8 - 11.4 fL 10/12 12:26 PM [facility] [place] Not Available Not Available 11/21/2024 13:56:41 10/12/1910/12/2024 CBC W Auto Diffe renti al panel - Blood neutrophils [#/volume] in blood by automated count 6.14 text: 1.60 - 7.50 x10e9/ L Preli minar y Absol [place] Neutr ophil 6.14 1.60 - 7.50 x10E9 /L 10/12 12:26 PM [facility] [place] Not Available Not Available 11/21/2024 13:56:41 10/12/1910/12/2024 CBC W Auto Diffe renti al panel - Blood neutrophils/ 100 leukocytes in blood by automated count 63.7 % low: 41%hig h: 74% Neutr ophil % 63.7 41.0 - 74.0 % 10/12 12:26 PM CLINICAL DOCUMENTATION IMPROVEMENT SPECIALIST [facility] [place] Not Available Not Available 11/21/2024 13:56:41 10/12/19 25 10/12/2024 CBC W Auto Diffe renti al panel - Blood lymphocytes/ 100 leukocytes in blood by automated count 27.4 % low: 17%hig h: 47% Lymph ocyte % 27.4 17.0 - 47.0 % 10/12 12:26 PM CLINICAL DOCUMENTATION IMPROVEMENT SPECIALIST [facility] [place] Not Available Not Available 11/21/2024 13:56:41 10/12/19 25 10/12/2024 CBC W Auto Diffe renti al panel - Blood monocytes/10 0 leukocytes in blood by automated count 7 % low: 3%high : 11% Monoc yte % 7.0 3.0 - 11.0 % 10/12 12:26 PM CLINICAL DOCUMENTATION IMPROVEMENT SPECIALIST [facility] [place] Not Available Not Available 11/21/2024 13:56:41 10/12/19 25 10/12/2024 CBC W Auto Diffe renti al panel - Blood eosinophils/ 100 leukocytes in blood by automated count 1.3 % low: 0%high : 7% Eosin ophil % 1.3 0.0 - 7.0 % 10/12 12:26 PM CLINICAL DOCUMENTATION IMPROVEMENT SPECIALIST [facility] [place] Not Available Not Available 11/21/2024 13:56:41 10/12/19 25 10/12/2024 CBC W Auto Diffe renti al panel - Blood basophils/10 0 leukocytes in blood by automated count 0.3 % low: 0%high : 1.6% Basop hil % 0.3 0.0 - 1.6 % 10/12 12:26 PM CLINICAL DOCUMENTATION IMPROVEMENT SPECIALIST [facility] [place] Not Available Not Available 11/21/2024 13:56:41 10/12/19 25 10/12/2024 CBC W Auto Diffe renti al panel - Blood immature granulocytes /100 leukocytes in blood by automated count 0.3 % low: 0%high : 1% Immat ure Granu locyt es % 0.3 0.0 - 1.0 % 10/12 12:26 PM CLINICAL DOCUMENTATION IMPROVEMENT SPECIALIST [facility] [place] Not Available Not Available 11/21/2024 13:56:41 10/12/19 25 10/12/2024 CBC W Auto Diffe renti al panel - Blood neutrophils [#/volume] in blood by automated count 6.14 text: 1.60 - 7.50 x10e9/ L Neutr ophil Absol [place] 6.14 1.60 - 7.50 x10E9 /L 10/12 12:26 PM CLINICAL DOCUMENTATION IMPROVEMENT SPECIALIST [facility] [place] Not Available Not Available 11/21/2024 13:56:41 10/12/19 25 10/12/2024 CBC W Auto Diffe renti al panel - Blood lymphocytes [#/volume] in blood by automated count 2.65 text: 1.00 - 4.40 x10e9/ L Lymph ocyte Absol [place] 2.65 1.00 - 4.40 x10E9 /L 10/12 12:26 PM CLINICAL DOCUMENTATION IMPROVEMENT SPECIALIST [facility] [place] Not Available Not Available 11/21/2024 13:56:41 10/12/19 25 10/12/2024 CBC W Auto Diffe renti al panel - Blood monocytes [#/volume] in blood by automated count 0.68 text: 0.15 - 1.00 x10e9/ L Monoc yte Absol [place] 0.68 0.15 - 1.00 x10E9 /L 10/12 12:26 PM [facility] [place] Not Available Not Available 11/21/2024 13:56:41 10/12/19 25 10/12/2024 CBC W Auto Diffe renti al panel - Blood eosinophils [#/volume] in blood 0.13 text: 0.00 - 0.60 x10e9/ L Eosin ophil Absol [place] 0.13 0.00 - 0.60 x10E9 /L 10/12 12:26 PM [facility] [place] Not Available Not Available 11/21/2024 13:56:41 10/12/1910/12/2024 CBC W Auto Diffe renti al panel - Blood basophils [#/volume] in blood by automated count 0.03 text: 0.00 - 0.13 x10e9/ L Basop hil Absol [place] 0.03 0.00 - 0.13 x10E9 /L 10/12 12:26 PM [facility] [place] Not Available Not Available 11/21/2024 13:56:41 10/12/19 25 10/12/2024 CBC W Auto Diffe renti al panel - Blood interpretati on and review of laboratory results Abnorm al Not Available Not Available 13:56:41 10/12/19 25 10/12/2024 Compr ehens ana metab olic 1999 panel - Serum or Plasm a urea nitrogen [mass/volume ] in serum or plasma 11 mg/dL low: 7mg/dL high: 26mg/d L BUN 11 7 - 26 mg/dL 10/12 12:54 PM CLINICAL DOCUMENTATION IMPROVEMENT SPECIALIST [facility] [place] Not Available Not Available 11/21/2024 13:56:40 10/12/19 25 10/12/2024 Compr ehens ana metab olic 1999 panel - Serum or Plasm a creatinine [mass/volume ] in serum or plasma 0.72 mg/dL low: 0.56mg /dLhig h: 0.96mg /dL Creat inine 0.72 0.56 - 0.96 mg/dL 10/12 12:54 PM CLINICAL DOCUMENTATION IMPROVEMENT SPECIALIST [facility] [place] Not Available Not Available 11/21/2024 13:56:40 10/12/19 25 10/12/2024 Compr ehens ana metab olic 1999 panel - Serum or Plasm a sodium [moles/volum e] in serum or plasma 137 mmol/ L low: 136mmo l/Lhig h: 145mmo l/L Sodiu m 137 136 - 145 mmol/ L 10/12 12:54 PM CLINICAL DOCUMENTATION IMPROVEMENT SPECIALIST [facility] [place] Not Available Not Available 11/21/2024 13:56:40 10/12/19 25 10/12/2024 Compr ehens ana metab olic 1999 panel - Serum or Plasm a potassium [moles/volum e] in serum or plasma 3.8 mmol/ L low: 3.5mmo l/Lhig h: 4.5mmo l/L Potas sium 3.8 3.5 - 4.5 mmol/ L 10/12 12:54 PM CLINICAL DOCUMENTATION IMPROVEMENT SPECIALIST [facility] [place] Not Available Not Available 11/21/2024 13:56:40 10/12/19 25 10/12/2024 Compr ehens ana metab olic 1999 panel - Serum or Plasm a chloride [moles/volum e] in serum or plasma 104 mmol/ L low: 98mmol /Lhigh : 107mmo l/L Chlor ana 104 98 - 107 mmol/ L 10/12 12:54 PM CLINICAL DOCUMENTATION IMPROVEMENT SPECIALIST [facility] [place] Not Available Not Available 11/21/2024 13:56:40 10/12/19 25 10/12/2024 Compr ehens ana metab olic 1999 panel - Serum or Plasm a carbon dioxide, total [moles/volum e] in serum or plasma 24 mmol/ L low: 22mmol /Lhigh : 29mmol /L CO2 24 22 - 29 mmol/ L 10/12 12:54 PM [facility] [place] Not Available Not Available 11/21/2024 13:56:40 10/12/19 25 10/12/2024 Compr ehens ana metab olic 1999 panel - Serum or Plasm a glucose [mass/volume ] in serum or plasma 244 mg/dL low: 70mg/d Lhigh: 99mg/d L high Gluco se 244 (H) 70 - 99 mg/dL 10/12 12:54 PM [facility] [place] Not Available Not Available 11/21/2024 13:56:40 10/12/19 25 10/12/2024 Compr ehens ana metab olic 1999 panel - Serum or Plasm a calcium [moles/volum e] in serum or plasma 8.9 mg/dL low: 8.4mg/ dLhigh : 10.2mg /dL Calci um 8.9 8.4 - 10.2 mg/dL 10/12 12:54 PM [facility] [place] Not Available Not Available 11/21/2024 13:56:40 10/12/19 25 10/12/2024 Compr ehens ana metab olic 1999 panel - Serum or Plasm a protein [mass/volume ] in serum or plasma 7.2 g/dL low: 6g/dLh igh: 8.3g/d L Prote in Total 7.2 6.0 - 8.3 g/dL 10/12 12:54 PM [facility] [place] Not Available Not Available 11/21/2024 13:56:40 10/12/19 25 10/12/2024 Compr ehens ana metab olic 2000 panel - Serum or Plasm a albumin [mass/volume ] in serum or plasma by bromocresol green (bcg) dye binding method 3.5 g/dL low: 3.4g/d Lhigh: 5g/dL Album in 3.5 3.4 - 5.0 g/dL 10/12 12:54 PM CLINICAL DOCUMENTATION IMPROVEMENT SPECIALIST [facility] [place] Not Available Not Available 11/21/2024 13:56:40 10/12/19 25 10/12/2024 Compr ens ana metab olic 1999 panel - Serum or Plasm a bilirubin.to [place] [mass/volume ] in serum or plasma 0.3 mg/dL low: 0.2mg/ dLhigh : 1.2mg/ dL Bilir ubin Total 0.3 0.2 - 1.2 mg/dL 10/12 12:54 PM CLINICAL DOCUMENTATION IMPROVEMENT SPECIALIST [facility] [place] Not Available Not Available 11/21/2024 13:56:40 10/12/19 25 10/12/2024 Compr ens ana metab olic 1999 panel - Serum or Plasm a alkaline phosphatase [enzymatic activity/vol ume] in serum or plasma 76 U/L low: 40U/Lh igh: 150U/L Alkal ine Phosp hatas e 76 40 - 150 U/L 10/12 12:54 PM CLINICAL DOCUMENTATION IMPROVEMENT SPECIALIST [facility] [place] Not Available Not Available 11/21/2024 13:56:40 10/12/19 25 10/12/2024 Compr ens ana metab olic 1999 panel - Serum or Plasm a alanine aminotransfe rase [enzymatic activity/vol ume] in serum or plasma by no addition of P-5'-P 23 U/L low: 5U/Lhi gh: 55U/L ALT 23 5 - 55 U/L 10/12 12:54 PM CLINICAL DOCUMENTATION IMPROVEMENT SPECIALIST [facility] [place] Not Available Not Available 11/21/2024 13:56:40 10/12/19 25 10/12/2024 Compr ens ana metab olic 1999 panel - Serum or Plasm a aspartate aminotransfe rase [enzymatic activity/vol ume] in serum or plasma 17 U/L low: 5U/Lhi gh: 34U/L AST 17 5 - 34 U/L 10/12 12:54 PM CLINICAL DOCUMENTATION IMPROVEMENT SPECIALIST [facility] [place] Not Available Not Available 11/21/2024 13:56:40 10/12/19 25 10/12/2024 Compr ehens ana metab olic 1999 panel - Serum or Plasm a anion gap 9 low: 6high: 16 Anion Gap 9 6 - 16 10/12 12:54 PM CLINICAL DOCUMENTATION IMPROVEMENT SPECIALIST [facility] [place] Not Available Not Available 11/21/2024 13:56:40 10/12/19 25 10/12/2024 Compr ehens ana metab olic 2000 panel - Serum or Plasm a urea nitrogen/cre atinine [mass ratio] in serum or plasma 15 low: 7high: 23 BUN/C reati nine Ratio 15 7 - 23 10/12 12:54 PM CLINICAL DOCUMENTATION IMPROVEMENT SPECIALIST [facility] [place] Not Available Not Available 11/21/2024 13:56:40 10/12/19 25 10/12/2024 Compr ehens ana metab olic 2000 panel - Serum or Plasm a osmolality calculated 291 text: 275 - 295 mOsm/k g Osmol ality Calcu lated 291 275 - 295 mOsm/ kg 10/12 12:54 PM CLINICAL DOCUMENTATION IMPROVEMENT SPECIALIST [facility] [place] Not Available Not Available 11/21/2024 13:56:40 10/12/19 25 10/12/2024 Compr ehens ana metab olic 2000 panel - Serum or Plasm a albumin/glob ulin ratio 0.9 low: 1.1hig h: 2.3 low Album in/Gl obuli n Ratio 0.9 (L) 1.1 - 2.3 10/12 12:54 PM CLINICAL DOCUMENTATION IMPROVEMENT SPECIALIST [facility] [place] Not Available Not Available 11/21/2024 13:56:40 10/12/19 25 10/12/2024 Compr ehens ana metab olic 1999 panel - Serum or Plasm a glomerular filtration rate/1.73 sq M.predicted [volume rate/area] in serum, plasma or blood by creatinine-b ased formula (CKD-epi 2020) text: >=90 mL/min /1.73 m2 eGFR by CKD-E PI >90 >=90 mL/mi n/1.7 3 m2 10/12 12:54 PM CLINICAL DOCUMENTATION IMPROVEMENT SPECIALIST [facility] [place] Not Available Not Available 11/21/2024 13:56:40 10/12/19 25 10/12/2024 Compr ehens ana metab olic 1999 panel - Serum or Plasm a interpretati on and review of laboratory results Abnorm al Not Available Not Available 13:56:40 10/30/19 25 10/30/2024 IgA [Mass /volu me] in Serum or Plasm a IgA [mass/volume ] in serum or plasma 747 mg/dL low: 61mg/d Lhigh: 356mg/ dL high IgA 747 (H) 61 - 356 mg/dL 10/30 10:03 AM CLINICAL DOCUMENTATION IMPROVEMENT SPECIALIST [facility] [place] Not Available Not Available 11/21/2024 13:56:47 10/30/19 25 10/30/2024 IgA [Mass /volu me] in Serum or Plasm a interpretati on and review of laboratory results Abnorm al Not Available Not Available 13:56:47 10/30/19 25 11/01/2024 Tissu e trans gluta logan e IgA Ab [Unit s/vol ume] in Serum by Immun oassa y tissue transglutami nase IgA Ab [units/volum e] in serum by immunoassay 2.34 text: 0.00 - 4.99 flu Tissu e Trans gluta logan e (tTG) Ab, IgA 2.34 0.00 - 4.99 FLU 11/01 4:09 AM CLINICAL DOCUMENTATION IMPROVEMENT SPECIALIST [facility] Not Available Not Available 11/21/2024 13:56:47 10/30/19 25 10/31/2024 Tissu e Patho logy biops y repor t pathology report.secti on heading Surgic al Pathol ogy Report Case: [id number] Author izing Provid er: [facility] 08:08 AM MD Cherelle Loco ng Locati on: [facility] Receiv ed: 2024 09:51 AM Pathol ogist: Clovis Monroe MD Specim en: Duoden al Biopsy , duoden al bx - iron defici ency, r/o celiac diseas e Case Repor t Surgi lakshmi Patho logy Repor t Case: [id number] Autho ricardo black Provi sofia: Campbell hwpardeep er-Te tri, Leo Colle cted: 10/30 08:08 AM MD Beronica Order ing Locat ion: [facility] Recei celia: 10/30 09:51 AM Patho logis t: Rony Hu MD Speci men: Duode nal Biops y, duode nal bx - iron defic iency , r/o nati c disea se 10/31 1:19 PM CLINICAL DOCUMENTATION IMPROVEMENT SPECIALIST [facility] Not Available Not Available 11/21/2024 13:56:46 10/30/19 25 10/31/2024 Tissu e Patho logy biops y repor t pathology report final diagnosis narrative Small intest ine, duoden um, biopsy (A): - No histop atholo gic abnorm ality - 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 sed intrae pithel ial lympho cytes Final Diagn osis Small intes jose, duode num, biops y (A): - No histo patho logic abnor malit y - Intac t villo us and crypt archi tectu re witho ut incre ased intra epith elial lymph ocyte s 10/31 1:19 PM CLINICAL DOCUMENTATION IMPROVEMENT SPECIALIST [facility] Elect dariela cedillo d by Melissa farris, Rony choudhury MD on 2024 at 1:19 PM Not Available Not Available 11/21/2024 13:56:46 10/30/19 25 10/31/2024 Tissu e Patho logy biops y repor t pathology report microscopic observation narrative other stain Micros copic examin ation substa ntiate s the final diagno sis. Micro scopi c Descr iptio n and Comme nt Micro scopi c exami natio n subst antia geovanni the final diagn osis. 10/31 1:19 PM CLINICAL DOCUMENTATION IMPROVEMENT SPECIALIST [facility] Not Available Not Available 11/21/2024 13:56:46 10/30/19 25 10/31/2024 Tissu e Patho logy biops y repor t pathology report relevant history narrative The patien t is a 43 year old woman with iron defici ency anemia . Operat ana proced ure/fi ndings : EGD - normal duoden um, biopsi ed to rule out celiac diseas e. Clini lakshmi Histo ry The patie nt is a 43 year old woman with iron defic iency anemi a. Opera tive proce dure/ findi ngs: EGD - mckay l duode num, biops ied to rule out nati c disea se. 10/31 1:19 PM CLINICAL DOCUMENTATION IMPROVEMENT SPECIALIST [facility] Not Available Not Available 11/21/2024 13:56:46 10/30/1910/31/2024 Tissu e Patho logy biops y repor t pathology report gross observation narrative The requis ition and specim en(s) are identi fied with the patien t's name, Amina cummings. Receiv ed in formal in, specim en A , are multip le thornton-wh ite, friabl e and floccu lent soft tissue fragme nts, rangin g from 0.1 to 0.3 cm and measur ing 0.7 x 0.5 x 0.1 cm in aggreg ate, submit luigi in toto as casset te A1. AL Gross Descr iptio n The requi sitio n and speci men(s ) are ident ified with the patie nt's name, Álvaor cornejo. Recei celia in forma lory, speci men A , are multi ple thornton-w malena, friab le and flocc ulent soft tissu e fragm ents, rangi ng from 0.1 to 0.3 cm and measu ring 0.7 x 0.5 x 0.1 cm in aggre gate, submi tted in toto as casse tte A1. AL 10/31 1:19 PM CLINICAL DOCUMENTATION IMPROVEMENT SPECIALIST [facility] Not Available Not Available 11/21/2024 13:56:46 10/30/19 25 10/31/2024 Tissu e Patho logy biops y repor t pathologist location at [facility] Patho logis t Locat ion at [facility] 10/31 1:19 PM CLINICAL DOCUMENTATION IMPROVEMENT SPECIALIST [facility] Not Available Not Available 11/21/2024 13:56:46 10/30/19 25 10/31/2024 Tissu e Patho logy biops y repor t service comment The perfor essence charac terist ics of all immuno histoc hemica l and indire ct immuno fluore scence stains (if any) cited in this report were determ ined by the Histop atholo gy Darryna emilia of [facility] sit. Some of these tests were develo ped by our own labora tory and have not been cleare d or approv ed by the [place] Food and Drug Admini strati on. The FDA does not requir e this test to go throug h premar ket FDA review . These tests are used for clinic al purpos es. They should not be regard ed as invest igatio nal or for resear ch. This labora tory is certif ied under the Clinic al Labora tory Improv ement Amendm ents (CLIA) as qualif ied to perfor m high comple xity clinic al labora toryoshi testin g. This case has been person ally review ed and interp reted by the attend ing (teach ing) pathol ogist. Discl aimer The perfo rmanc e [place] cteri stics of all immun ohist ochem ical and indir ect immun ofluo resce nce stain s (if any) cited in this repor t were deter mined by the Histo patho logy Labor atory of [facility] rsity . Some of these tests were devel oped by our own labor atory and have not been clear ed or appro celia by the US Food and Drug Admin istra tion. The FDA does not requi re this test to go throu gh rosibel rket FDA revie w. These tests are used for clini lakshmi purpo ses. They shoul d not be regar ded as inves tigat ional or for resea rch. This labor atory is certi fied under the Clini lakshmi Labor atory Impro vemen t Amend ments (CLIA ) as quali fied to perfo rm high compl exity clini lakshmi labor atory testi ng. This case has been perso duncan revie wed and inter prete d by the [facility]. 10/31 1:19 PM CLINICAL DOCUMENTATION IMPROVEMENT SPECIALIST [facility] Not Available Not Available 11/21/2024 13:56:46 10/30/19 25 10/31/2024 Tissu e Patho logy biops y repor t embedded images Embed ded Image s 10/31 1:19 PM CLINICAL DOCUMENTATION IMPROVEMENT SPECIALIST [facility] Not Available Not Available 11/21/2024 13:56:46 10/30/19 25 10/30/2024 Gluco se [Mass /volu me] in Arter ial blood glucose [mass/volume ] in capillary blood by glucometer 156 mg/dL low: 70mg/d Lhigh: 99mg/d L high Gluco se WB/PO C 156 (H) 70 - 99 mg/dL 10/30 10:21 AM CLINICAL DOCUMENTATION IMPROVEMENT SPECIALIST [facility] [place] Not Available Not Available 11/21/2024 13:56:46 10/30/19 25 10/30/2024 Gluco se [Mass /volu me] in Arter ial blood specimen source identified Venous Speci men Type Venou s 10/30 10:21 AM CLINICAL DOCUMENTATION IMPROVEMENT SPECIALIST [facility] [place] Not Available Not Available 11/21/2024 13:56:46 10/30/19 25 10/30/2024 Gluco se [Mass /volu me] in Arter ial blood interpretati on and review of laboratory results Abnorm al Not Available Not Available 13:56:46 10/30/19 25 10/30/2024 Chori ogona dotro pin (preg ras test) [Pres ence] in Urine HCG qual urine Negati ve text: negati ve HCG Qual Urine Negat ana Negat ana 10/30 7:38 AM CLINICAL DOCUMENTATION IMPROVEMENT SPECIALIST [facility] [place] Not Available Not Available 11/21/2024 13:56:46 10/30/19 25 10/30/2024 Chori ogona dotro pin (preg ras test) [Pres ence] in Urine interpretati on and review of laboratory results Normal Not Available Not Available 11/03 13:56:46 11/02/19 25 11/02/2024 gluco se, carlos rsgorge k, blood Blood Glucose: mg/dl 206 Not Available In-Off ice Order Internal Use Only DO Not Attach Compendium DO Not Attach Compendium, Do Not Delete/merge, [id number] 11/02/2024 11:30:47 10/29/19 25 10/01/2024 XR, hip + pelvi s, unila teral , 2 or 3 view No observ ation record ed. [facility] [address], [place], [address], 10/31/2024 14:05:44 Result Notes None recorded. Problems Name Problem SNOMED Code Status Onset Date Resolution Date Notes Provider Name and Address Organization Details Recorded Time Foot joint pain 821003627 Active no fall or trauma. Rika Rodriguez MD Attn: [place],[address], [place], [address], [facility] 6 14:38:54 Essential hypertensi on 39433127 Active out of meds for 2 months Rika Rodriguez MD Attn: [place],[address], [place], [address], [facility] 6 14:38:54 Anemia 557706184 Active Rika Rodriguez MD Attn: [place],[address], [place], [address], [facility] 6 14:38:54 Asthma 410054064 Active Rika Rodriguez MD Attn: [place],[address], [place], [address], [facility] 6 14:38:54 Obesity 129886150 Active Rika Rodriguez MD Attn: [place],[address], [place], [address], [facility] 6 14:38:54 Hyperglyce sulaiman 81344120 Active 2017 Rika Rodriguez MD Attn: [place],[address], [place], [address], [place] [facility] 8 16:29:10 Chest pain 64318958 Active 2018 Rika Rodriguez MD Attn: [place],[address], [place], [address], [place] [facility] 9 12:44:18 Mammograph y abnormal 410718762 Active 2022 Rika Rodriguez MD Attn: [place],[address], [place], [address], [place] [facility] 3 14:49:14 Carpal tunnel syndrome of right wrist 5931433483321 08 Active 2023 Rika Rodriguez MD Attn: [place],[address], [place], [address], [place] [facility] 4 10:45:56 Pain in left lower limb 398235008 Active 2023 Rika Rodriguez MD Attn: [place],[address], [place], [address], [place] [facility] 4 12:41:01 Urinary tract infectious disease 15812755 Active Rika Rodriguez MD Attn: [place],[address], [place], [address], [place] [facility] 6 14:30:38 Problem Notes None recorded. Procedures Surgical History Date Name Laterality Status Provider Name and Address Organization Details Recorded Time 10/17/19 16 Date of Last Pap Smear completed Vishal Richmond MD Attn: [employer], [address] [place], [address], [place] [facility] 10/22/2015 12:23:56 10/03/19 13 Cholecystectomy completed Vishal Richmond MD Attn: [employer], [address] [place], [address], [place] [facility] 10/17/2015 11:02:36 Caesarean Section completed Vishal Richmond MD Attn: [employer], [address] [place], [address], [place] [facility] 10/17/2015 11:02:36 Imaging Results Imaging Date Name Status LastModified by Organiz ation Details LastModified Time 10/01/2024 XR, hip + pelvis, unilateral , 2 or 3 view completed [facility] [address], [place], [address], 10/31/2024 14:05:44 Procedure Notes None recorded. Medical Equipment None Reported. Allergies Allergen ID Allergen Name Allergen Category Reaction Reaction Severity Criticality Documentation Date Start Date Code Code System Note Provider Name and Address Organization Details Recorded Time naproxen medicatio n dizziness Not available Not available 10/31/2014 7258 RxNorm Not Available Not Available Not Available acetamino phen / hydrocodo ne medicatio n dizziness Not available Not available 10/31/2014 67611 2 RxNorm Not Available Not Available Not Available Bactrim medicatio n nausea Not available Not available 10/31/2014 98266 9 RxNorm Not Available Not Available Not Available Medications Name Sig Start Date Stop Date Status Note LastModified by Organization Details LastModified Time Prescript ion - Prior Authoriza tion Request active Not Available Not Available Not Available cyclobenz aprine 10 mg tablet TAKE 1 TABLET BY MOUTH EVERY 8 HOURS FOR 3 DAYS NEEDED FOR MUSCLE SPASM 06/20 completed Not Available Not Available Not Available atorvasta tin 40 mg tablet 07/14 completed Not Available Not Available Not Available Qvar 80 mcg/actua tion Metered Aerosol oral inhaler Inhale 2 puffs twice a day by inhalati on route. 05/25 completed medicati on refill Not Available Not Available Not Available neomycin- polymyxin -hydrocor t 3.5 mg/mL-10, 000 unit/mL-1 % ear solution 06/24 completed Not Available Not Available Not Available albuterol sulfate 2.5 mg/3 mL (0.083 %) solution for nebulizat ion INHALE THREE ML EVERY 4 TO 6 HOURS BY NEBULIZA TION ROUTE NEEDED active Not Available Not Available No t Available fluconazo le 150 mg tablet 07/14 completed Not Available Not Available Not Available benzonata te 200 mg capsule TAKE 1 CAPSULE BY MOUTH THREE TIMES DAILY FOR 10 DAYS active Not Available Not Available No t Available metoprolo l succinate ER 50 mg tablet,ex tended release 24 hr TAKE ONE TABLET BY MOUTH ONCE EVERY DAY (FOR BLOOD PRESSURE ) active Not Available Not Available No t Available ampicilli n 500 mg capsule Take 1 capsule every 6 hours by oral route for 7 days. 10/12 completed Rx changed to [facility] [place] per pt request; 500mg Ampicill in capsules ordered per written instruct ion, bid po for 7 days. Not Available Not Available Not Available prednison e 20 mg tablet Take 1 tablet every day by oral route. 10/17 completed Not Available Not Available Not Available Zithromax Z-Ken 250 mg tablet TAKE 2 TABLETS (500 MG) BY ORAL ROUTE ONCE DAILY FOR 1 DAY THEN 1 TABLET (250 MG) BY ORAL ROUTE ONCE DAILY FOR 4 DAYS 05/07 completed Not Available Not Available Not Available potassium chloride ER 10 mEq tablet,ex tended release TAKE ONE-HALF TABLET BY MOUTH ONCE EVERY DAY active Not Available Not Available No t Available ciproflox acin 500 mg tablet Take 1 tablet every 12 hours by oral route for 7 days. 06/24 completed Not Available Not Available Not Available tramadol 50 mg tablet Take 1 tablet every 6 hours by oral route. 06/20 completed Not Available Not Available Not Available amoxicill in 500 mg tablet Take 1 tablet every 8 hours by oral route for 10 days. 05/07 completed Not Available Not Available Not Available Tessalon Perles 100 mg capsule Take 1 capsule 3 times a day by oral route. 06/24 completed Not Available Not Available Not Available amoxicill in 875 mg tablet TAKE 1 TABLET BY MOUTH TWICE DAILY 01/05 completed Not Available Not Available Not Available cephalexi n 500 mg capsule TAKE 1 CAPSULE BY MOUTH EVERY 6 HOURS 06/20 completed Not Available Not Available Not Available oseltamiv ir 75 mg capsule TAKE 1 CAPSULE BY MOUTH TWICE DAILY FOR 5 DAYS active Not Available Not Available No t Available nitroglyc sesar 0.4 mg sublingua l tablet 06/20 completed Not Available Not Available Not Available metoprolo l succinate ER 25 mg tablet,ex tended release 24 hr Take 2 tablets every day by oral route for 30 days. active Not Available Not Available No t Available methylpre dnisolone 4 mg tablets in a dose pack FOLLOW PACKAGE DIRECTIO NS active Not Available Not Available No t Available albuterol sulfate HFA 90 mcg/actua tion aerosol inhaler INHALE 2 PUFFS BY MOUTH EVERY FOUR HOURS FOR BEST RESULTS USE WITH A SPACER active Not Available Not Available No t Available ondansetr on 4 mg disintegr ating tablet DISSOLVE 1 TABLET ON THE TONGUE EVERY 8 HOURS FOR 2 DAYS active Not Available Not Available No t Available loratadin e 10 mg tablet Take 1 tablet every day by oral route. 07/14 completed Not Available Not Available Not Available Ortho Micronor 0.35 mg tablet Take 1 tablet every day by oral route for 28 days. 07/14 completed Not Available Not Available Not Available medroxypr ogesteron e 150 mg/mL intramusc ular syringe INJECT ONCE EVERY 11 TO 13 WEEKS. 06/20 completed Not Available Not Available Not Available nitrofura ntoin monohydra te/macroc rystals 100 mg capsule TAKE 1 CAPSULE BY MOUTH TWICE DAILY FOR 7 DAYS. 01/05 completed Not Available Not Available Not Available Lyrica 75 mg capsule Take 1 capsule twice a day by oral route. 05/27 completed Not Available Not Available Not Available losartan 100 mg-hydroc hlorothia zide 12.5 mg tablet TAKE ONE TABLET BY MOUTH EVERY MORNING (FOR BLOOD PRESSURE AND FLUID RETENTIO N) active Not Available Not Available No t Available Symbicort 80 mcg-4.5 mcg/actua tion HFA aerosol inhaler Inhale 2 puffs twice a day by inhalati on route. 05/25 completed Not Available Not Available Not Available FeroSul 325 mg (65 mg iron) tablet TAKE ONE TABLET BY MOUTH DAILY 06/20 completed Not Available Not Available Not Available Q-PAP Extra Strength 500 mg tablet Take 2 tablets every 6 hours by oral route. 10/17 completed Not Available Not Available Not Available GaviLyte- G 236 gram-22.7 4 gram-6.74 gram-5.86 gram oral solution mix as directed , drink ONE-HALF of THE liquid STARTING AT 5pm THEN evening BEFORE procedur e; drink remainin g liquid AT 4am ON DAY of procedur e active Not Available Not Available No t Available Nucynta 100 mg tablet Take 1 tablet every 12 hours by oral route as needed. 10/17 completed Not Available Not Available Not Available tranexami c acid 650 mg tablet TAKE 2 TABLETS BY MOUTH THREE TIMES DAILY FOR THE 5 HEAVIEST DAYS OF CYCLE 06/20 completed Not Available Not Available Not Available Dulera 200 mcg-5 mcg/actua tion HFA aerosol inhaler INHALE TWO PUFFS BY MOUTH TWICE DAILY (IN THE MORNING AND EVENING) active Not Available Not Available No t Available potassium chloride ER 20 mEq tablet,ex tended release TAKE 1 TABLET BY MOUTH DAILY 06/20 completed Not Available Not Available Not Available Compact Space Chamber USE WITH INHALER FOR BETTER RESULTS active Not Available Not Available No t Available Rybelsus 3 mg tablet TAKE 1 TABLET EVERY MORNING ON AN EMPTY STOMACH WITH 4 OZ OF WATER EAT 30 TO 60 MINUTES AFTER THE DOSE active Not Available Not Available No t Available Vitals Date Recorded Body height Body mass index (BMI) Body weight Oxygen saturation Oxygen saturation in Arterial blood by Pulse oximetry Heart rate Systolic blood pressure Diastolic blood pressure Systolic blood pressure Diastolic blood pressure Provider Name and Address Organization Details Last Updated DateTime 4 165.1 cm 37.2 kg/m2 809238. 97 g 98 % 98 % 76 /min 155 mm[Hg] 83 mm[Hg] 155 mm[Hg] 87 mm[Hg] Sabina [facility] 4 10:30:52 Date Recorded Body height Body mass index (BMI) Body weight Body temperature Oxygen saturation Oxygen saturation in Arterial blood by Pulse oximetry Heart rate Provider Name and Address Organization Details Last Updated DateTime 4 165.1 cm 37.1 kg/m2 446624. 1 g 96.5 [degF] 99 % 99 % 82 /min Christine GuidoCLARITA [facility] 4 10:29:05 Date Recorded Systolic blood pressure Diastolic blood pressure Provider Name and Address Organization Details Last Updated DateTime 07/05/2024 159 mm[Hg] 83 mm[Hg] Rika Rodriguez MD Attn: [employer],[address] [place], [address], [facility] 07/05/2024 10:51:45 Date Recorded Body height Body mass index (BMI) Body weight Provider Name and Address Organization Details Last Updated DateTime 09/27/2024 165.1 cm 37.3 kg/m2 589439.69 g Christine Lora MA [facility] 09/27/2024 11:43:55 Date Recorded Body height Provider Name an d Address Organization Details Last Updated DateTime 10/26/2024 165.1 cm Christine Lora MA [facility] 2024 12:38:25 Date Recorded Body height Provider Name an d Address Organization Details Last Updated DateTime 11/02/2024 165.1 cm Christine Lora MA [facility] 2024 11:21:24 Social History Question Answer Notes LastModified by Organizat ion Details LastModified Time Tobacco Smoking Status Never Smoker Luba Baeza [facility], [facility] 10/31/2014 12:45:46 Do You Have An Advance Directive? No Information not available 02/20/2021 What Is Your Level Of Alcohol Consumption? None [email or web address] Information not available 11/11/2014 Are You Blind Or Do You Have Difficulty Seeing? Yes Glasses Information not available 02/20/2021 What Is Your Level Of Caffeine Consumption? Occasional Information not available 02/20/2021 How Much Tobacco Do You Chew? None [email or web address] Information not available 11/11/2014 In The 14 Days Before Symptom Onset, Have You Had Close Contact With A Laboratory-confir med COVID-19 While That Case Was Ill? No Information not available 02/20/2021 In The 14 Days Before Symptom Onset, Have You Had Close Contact With A Person Who Is Under Investigation For COVID-19 While That Person Was Ill? No Information not available 02/20/2021 Have You Been To An Area Known To Be High Risk For COVID-19? No Information not available 02/20/2021 Are You Currently Employed? Yes Information not available 02/20/2021 Are You Deaf Or Do You Have Serious Difficulty Hearing? No Information not available 02/20/2021 What Type Of Diet Are You Following? REGULAR Information not available 02/20/2021 Which Illicit Or Recreational Drugs Have You Used? None [email or web address] Information not available 04/09/2015 What Is The Highest Grade Or Level Of School You Have Completed Or The Highest Degree You Have Received? 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 No Information not available 02/20/2021 What Was The Date Of Your Most Recent Tobacco Screening? 10/26/2024 Information not available 10/26/2024 How Many Children Do You Have? 2 [email or web address] Information not available 11/11/2014 What Is Your Relationship Status? Single Information not available 02/20/2021 Do You Use Your Seat Belt Or Car Seat Routinely? Yes Information not available 02/20/2021 Are You Sexually Active? Yes [email or web address] Information not available 11/11/2014 Do You Have Smoke And Carbon Monoxide Detectors In Your Home? Yes Information not available 02/20/2021 Do You Feel Stressed (tense, Restless, Nervous, Or Anxious, Or Unable To Sleep At Night)? [id number] Information not available 02/20/2021 Do You Use Any Illicit Or Recreational Drugs? No Information not available 02/20/2021 Do You Use Sunscreen Routinely? No Information not available 02/20/2021 Has Tobacco Cessation Counseling Been Provided? No Information not available 02/20/2021 Do You Or Have You Ever Used Any Other Forms Of Tobacco Or Nicotine? No Information not available 02/20/2021 Sex: Female Functional Status Question Answer Note LastModified by Organization D etails LastModified Time Are you able to care for yourself? Yes Information n ot available 02/20/2021 What is your exercise level? None Information not available 02/20/2021 Mental Status None recorded. Family History Relationship Description Onset Age of this Age Resolved Age Notes LastModified by Organization Details LastModified Time Mother Hypertensive disorder balbarcha Not available 2015 14:30:57 Mother Diabetes mellitus balbarcha Not available 2015 14:30:57 Mother History of cerebrovascu lar accident balb[place]a Not available 12/2015 14:30:57 Maternal Grandmother Heart disease balbarcha Not available 2015 14:30:57 Maternal Grandmother Hypertensive disorder balbarcha Not available 2015 14:30:57 Maternal Grandmother History of cerebrovascu lar accident balbarcha Not available 12/2015 14:30:58 Maternal Grandmother Diabetes mellitus balbarcha Not available 2015 14:30:58 Notes:Breast cancer - unknow n individual Ovarian cacner - unknown individual Medical History Condition Response Coronary Artery Disease N Other N Atrial Fibrillation N High Blood Pressure N Breast Cancer N Lung Disease N Depression N COPD N Blood Clots N Breast Problem N Anesthesia Complications N Headaches/Migraines N Anxiety Disorder N Muscle, Joint, or Bone Problems N Arthritis N Infertility N Polyps N Acid Reflux (GERD) N Cancer N Stroke N Endometriosis N High Cholesterol N Liver Disease N Fibromyalgia N Headaches N Kidney Disease N Heart Problems N Thyroid Problems N Kidney or Bladder Problems N GI Problems N Acne N Eating Disorder N Skin Problems N Anemia N Heart Attack (PR) N Diabetes N Ovarian Cancer N Blood Transfusions N Seizures/Epilepsy N Abuse/Domestic Violence N Asthma N Allergies N Hepatitis N Heart Disease N Pre-Eclampsia N Hypertension Y Heart Failure N Osteoporosis N Gynecological History Statement/Question Response Abnormal Pap N Flow Heavy STIs/STDs N Duration of Flow (days) 7 Age at Menarche 10 Current Control Method None Frequency of Cycle (Q days) 28 Sexually Active? Y Menses Monthly Y Date of Last Pap Smear 10/17/2015 LMP Definite Desired Control Method BCPs Obstetrics History GPAL:G 3 P 2 0 1 2 Type Value Multiple Births 0 Full Term 2 Induced 0 Spontaneous 1 Premature 0 Living 2 Ectopics 0 Total 3 Past Encounters Encounter ID Performer Location Encounter Start Date Encounter Closed Date Diagnosis/Indication Diagnosis SNOMED-CT Code Diagnosis ICD10 Code Diagnosis Note [id number] [facility] (Adult/Fa m Med) [address] [place] [address] 10/31/2014 12:15:23 10/31/2014 17:54:01 Essential hypertension 37484361 Foot joint pain 436662975 Anemia 069965171 chronic Asthma 927893055 Obesity 209955950 diet a nd exercises [id number] Betty Mello MA [facility] (CLEANER OPERATOR) [address] [place] [address] 11/11/2014 11:47:28 11/11/2014 14:16:07 Gynecologic examination 79190696 Uses contraception 72355436 [id number] [facility] (Adult/Fa m Med) [address] [place] [address] 01/29/2015 15:47:50 01/29/2015 17:59:36 Foot joint pain 153050106 Anemia 304999674 chronic to use OTC Fe supplement Asthma 780779967 Essential hypertension 77871845 [id number] Lalita Brien [facility] (CLEANER OPERATOR) [address] [place] [address] 02/17/2015 10:16:39 02/17/2015 17:53:34 Uses contraception 54543283 [id number] [facility] (CLEANER OPERATOR) [address] [place] [address] 04/09/2015 15:55:57 04/11/2015 04:03:31 Urinary tract infectious disease 99235631 [id number] Rika Rodriguez MD [facility] (Adult/Fa m Med) [address] [place] [address] 08/19/2015 16:10:05 08/19/2015 17:25:39 Asthma 930577411 J45.909 Essential hypertension 55329692 I10 Foot joint pain 73579732 7 M79.673 possible neuropathy ? [id number] Vishal Richmond MD [facility] (CLEANER OPERATOR) [address] [place] [address] 10/17/2015 10:41:48 10/17/2015 16:00:41 Gynecologic examination 99603005 Z01.419 Uses oral contraception 9317773 Z30.41 [id number] Rika Rodriguez MD [facility] (Adult/Fa m Med) [address] [place] [address] 02/03/2016 14:05:52 02/03/2016 14:53:20 Asthma 403572973 J45.909 with recent exacerbati on. continue same meds. add prednisone pt had nebulizer machine ( from her son) --> add albuterol neb q6h prn. Anemia 756667431 D64.9 chronic to use OTC Fe supplement Essential hypertension 17026362 I10 Foot joint pain 36005865 7 M79.673 possible neuropathy --> to see neurology as scheduled Obesity 003171207 E66.9 diet and exercises [id number] Rika Rodriguez MD [facility] (Adult/Fa m Med) [address] [place] [address] 07/20/2016 14:49:55 07/30/2016 15:46:26 Asthma 146970524 J45.909 stable Anemia 488454803 D64.9 chronic not taking any Fe supplement Obesity 799455943 E66.9 diet and exercises Essential hypertension 97482731 I10 stable now. Dyspnea on exertion 6084 5006 R06.09 possibly worsening anemia [id number] Vishal Richmond MD [facility] (CLEANER OPERATOR) [address] [place] [address] 09/30/2016 14:08:22 09/30/2016 16:41:07 Gynecologic examination 82090330 Z01.419 Urinary tr act infectious disease 53261695 N39.0 [id number] Rika Rodriguez MD [facility] (Adult/Fa m Med) [address] [place] [address] 10/20/2016 14:20:49 10/22/2016 08:49:22 Asthma 642527973 J45.909 stable Anemia 957810785 D64.9 chronicpt said that she is taking Fe supplement Obesity 308366729 E66.9 diet and exercises Essential hypertension 05294388 I10 stable now. Foot joint pain 40151981 7 M79.673 possible neuropathy --> to see neurology as scheduled [id number] Rika Rodriguez MD [facility] (Adult/Fa m Med) [address] [place] [address] 05/25/2017 11:42:10 05/26/2017 09:38:14 Asthma 674800829 J45.909 stablechan ge to [facility]. Anemia 905370834 D64.9 chronicpt said that she is taking Fe supplement labs today Obesity 392973770 E66.9 diet and exercises Essential hypertension 72564638 I10 stable now. [id number] Rika Rodriguez MD [facility] (Adult/Fa m Med) [address] [place] [address] 07/20/2017 10:12:42 07/21/2017 13:09:25 Anemia 534266419 D64.9 improvedco ntinue Fe supplement Eruption 827382543 R21 seen in the ERmost likely bedbugs bites / to use OTC benadryl/c ortizone creamtreat the bedding/ma ttress [id number] Rika Rodriguez MD [facility] (Adult/Fa m Med) [address] [place] [address] 12/02/2017 12:48:28 12/07/2017 09:52:19 Asthma 314140791 J45.909 stablechan ge to [facility]. Anemia 820097809 D64.9 improvedco ntinue Fe supplement Essential hypertension 31605454 I10 stable now.labs today [id number] Rika Rodriguez MD [facility] (Adult/Fa m Med) [address] [place] [address] 03/28/2018 15:58:18 03/31/2018 10:40:09 Anemia 967679379 D64.9 improvedco ntinue Fe supplement Essential hypertension 86568141 I10 stable now. Hyperglycemia 35782336 R 73.9 HgA1C 6.4diet and exerciseno meds for now per pt request.re evaluate in 3 monthsgive n glucometer to check FBS weekly Foot joint pain 38792214 7 M79.673 possible neuropathy --> to see neurology as scheduled [id number] Ritchie Osman MD [facility] (CLEANER OPERATOR) [address] [place] [address] 04/11/2018 14:28:17 04/24/2018 16:45:36 Gynecologic examination 07217188 Z01.403 [id number] Rika Rodriguez MD [facility] (Adult/Fa m Med) [address] [place] [address] 06/28/2018 16:03:32 06/28/2018 16:44:57 Asthma 191976308 J45.909 stablechan ge to [facility]. Anemia 667678477 D64.9 improvedco ntinue Fe supplement Obesity 302405468 E66.9 diet and exercises Essential hypertension 98367661 I10 stable now. refill all meds Hyperglycemia 93408276 R 73.9 [address]C [address].4diet and exerciselo st a lot of weightno meds for now per pt request. [id number] Rika Rodriguez MD [facility] (Adult/Fa m Med) [address] [place] [address] 09/20/2018 16:22:39 09/20/2018 17:00:45 Asthma 972849358 J45.909 stablechan ge to [facility]. Anemia 143149331 D64.9 improvedco ntinue Fe supplement repeat labs Obesity 340438597 E66.9 diet and exercises Essential hypertension 55269069 I10 stable now. refill all meds Hyperglycemia 51733427 R 73.9 HgA1C 6.4--> 6.1diet and exerciselo st a lot of weightno meds for now per pt request. [id number] Rika Rodriguez MD [facility] (Adult/Fa m Med) [address] [place] [address] 04/12/2019 12:27:40 04/12/2019 12:46:45 Asthma 603086514 J45.909 stablechan ge to [facility]. Anemia 594888309 D64.9 improvedco ntinue Fe supplement repeat labs Essential hypertension 90752788 I10 stable now. refill all meds Hyperglycemia 00856565 R 73.9 HgA1C 6.4--> 6.1--> 6.3diet and exerciselo st a lot of weightno meds for now per pt request. Chest pain 03730894 R07. 9 left sided.admi tted to [facility] cardiac work upmeds changed [id number] Rika Rodriguez MD [facility] (Adult/Fa m Med) [address] [place] [address] 10/12/2019 12:19:01 10/12/2019 13:13:21 Anemia 532801898 D64.9 improvedco ntinue Fe supplement Asthma 780473643 J45.90 9 stablechan ge to [facility]. Essential hypertension 18139459 I10 stable now. refill all medsincrea se metoprolol Hyperglycemia 27130008 R 73.9 HgA1C 6.4--> 6.1--> 6.3-->6.5d iet and exercisere peat todayno meds for now per pt request. Obesity 037523519 E66.9 diet and exercises [id number] Keysha Warner [facility] (CLEANER OPERATOR) [address] [place] [address] 10/17/2019 10:43:20 10/17/2019 12:30:27 Dysuria 41037870 R30.9 Screening mammography 24 846353 Z12.31 Reviewed recommenda tions for initiation between ages 40-50, every 1-2 years. + family history of breast cancer, unknown (not first degree) relative. Would like to start at this time. Order placed. Urinary tr act infectious disease 56590641 N39.0 1 month of symptoms. +nitrites on urine dip.- Rx sent for macrobid- Urine culture sent- Call if no improvemen t after antibiotic s Contraception care 0237714 0605 Z30.40 Not a candidate for estrogen, declines depo, LARC, permanent options. Would like to restart micronor.- Rx sent [id number] Rika Rodriguez MD [facility] (Adult/Fa m Med) [address] [place] [address] 01/25/2020 11:02:15 01/25/2020 15:17:58 Anemia 648710452 D64.9 improvedco ntinue Fe supplement Asthma 349692689 J45.90 9 stablechan ge to [facility]. Essential hypertension 38422916 I10 stable now. refill all medsincrea se metoprolol Hyperglycemia 69587161 R 73.9 HgA1C 6.4--> 6.1--> 6.3-->6.5d iet and exercise [id number] Rika Rodriguez MD [facility] (Adult/Fa m Med) [address] [place] [address] 03/26/2020 10:25:44 03/27/2020 10:27:27 Anemia 932034064 D64.9 improvedco ntinue Fe supplement Asthma 838321246 J45.90 9 stable Essential hypertension 77507804 I10 [id number] Rika Rodriguez MD [facility] (Adult/Fa m Med) [address] [place] [address] 05/07/2020 11:07:46 05/13/2020 12:35:58 Asthma 438798994 J45.909 stable Essential hypertension 65082896 I10 Anemia 050001449 D64.9 improvedco ntinue Fe supplement [id number] Rika Rodriguez MD [facility] (Adult/Fa m Med) [address] [place] [address] 05/27/2020 11:16:39 05/29/2020 07:57:13 Anemia 900533839 D64.9 improvedco ntinue Fe supplement Asthma 501789885 J45.90 9 stable Essential hypertension 78483049 I10 Hyperglycemia 77464060 R 73.9 HgA1C 6.4--> 6.1--> 6.3-->6.5d iet and exercise Obesity 318186957 E66.9 diet and exercises [id number] Keysha Warner [facility] (CLEANER OPERATOR) [address] [place] [address] 09/01/2020 12:05:12 09/02/2020 00:16:04 Urinary tract infectious disease 38545837 N39.0 Pt with persistent symptoms. Was not aware that prescripti on had already been submitted by Dr. Rodriguez's office.- Reviewed amox available at [facility], should cover UTI as well- Call if no relief in 48 hours after taking- could consider different antibiotic - Defer in person UCx given symptomati c COVID 19 infection Contraception care 80120 5005 Z30.40 Not a candidate for estrogen, declines depo, LARC, permanent options. Has pill pack, hasn't started. Reviewed start instructio ns. COVID-19 730915168 U07.1 Quarantini ng after (+) test ~1 week prior. Stable URI symptoms, denies current fevers. [id number] Rika Rodriguez MD [facility] (Adult/Fa m Med) [address] [place] [address] 09/16/2020 10:37:59 09/16/2020 13:53:13 Anemia 597396838 D64.9 improvedco ntinue Fe supplement Asthma 857250072 J45.90 9 stable Essential hypertension 33865233 I10 Hyperglycemia 70303964 R 73.9 HgA1C 6.4--> 6.1--> 6.3-->6.5d iet and exercise COVID-19 476613314 U07.1 diagnosed 08/25/20re caity to go back to work tomorrow. [id number] Christine Lora MA [facility] (Adult/Fa m Med) [address] [place] [address] 9 01/14/2021 10:52:02 01/17/2021 03:46:54 Essential hypertension 29179012 I10 [id number] Rika Rodriguez MD [facility] (Adult/Fa m Med) [address] [place] [address] 02/20/2021 10:29:37 02/20/2021 17:05:26 Anemia 042464327 D64.9 improvedco ntinue Fe supplement Asthma 796077186 J45.90 9 stable Essential hypertension 76821094 I10 Hyperglycemia 89901082 R 73.9 HgA1C 6.4--> 6.1--> 6.3-->6.5d iet and exercise Obesity 173576911 E66.9 diet and exercises [id number] Rika Rodriguez MD [facility] (Adult/Fa m Med) [address] [place] [address] 03/26/2021 10:29:51 03/26/2021 17:55:15 [id number] Rika Rodriguez MD [facility] (Adult/Fa m Med) [address] [place], [place] [address] 06/24/2021 11:52:45 06/24/2021 17:02:37 Anemia 604145915 D64.9 improvedco ntinue Fe supplement --> not taking it Asthma 781490015 J45.90 9 stable Essential hypertension 88495944 I10 Hyperglycemia 10187668 R 73.9 HgA1C 6.4--> 6.1--> 6.3-->6.5d iet and exercise Obesity 672597241 E66.9 diet and exercises Screening mammography 24 056018 Z12.31 [id number] Rika Rodriguez MD [facility] (Adult/Fa m Med) [address] [place] [address] 9 05/07/2022 10:25:16 05/13/2022 09:37:27 Essential hypertension 33712590 I10 refill meds Anemia 148330353 D64.9 improvedco ntinue Fe supplement Asthma 007382471 J4590 9 stable Hyperglycemia 89747376 R 73.9 HgA1C 6.4--> 6.1--> 6.3-->6.5- -> 6.1diet and exercise Adult heal th examination 716864007 Z00.00 [id number] Christine Lora MA [facility] (Adult/Fa m Med) [address] [place] [address] 05/10/2022 11:14:58 05/28/2022 03:47:41 [id number] Rika Rodriguez MD [facility] (Adult/Fa m Med) [address] [place] [address] 07/14/2022 10:08:01 07/14/2022 14:00:18 Hyperglycemia 67148270 R73.9 HgA1C 6.4--> 6.1--> 6.3-->6.5- -> 6.7--> 5.1diet and exercise Essential hypertension 83195079 I10 refill meds Anemia 123527063 D64.9 improvedco ntinue Fe supplement [facility] a week for the last 4 weeks Obesity 533995409 E66.9 diet and exercises Asthma 486086999 J45.90 9 stable [id number] Rika Rodriguez MD [facility] (Adult/Fa m Med) [address] [place] [address] 12/24/2022 11:48:15 12/24/2022 15:56:44 Screening for malignant neoplasm of cervix 448999269 Z12.4 Essential hypertension 20545091 I10 had a lot of questions about her medswas told by ER doc , she is taking wrong meds?? Anemia 495332787 D64.9 improvedco ntinue Fe supplement iron infusion at [facility] once a week for the last 4 weeks Asthma 671474353 J45.90 9 stable [id number] Rika Rodriguez MD [facility] (Adult/Fa m Med) [address] [place] [address] 01/05/2023 12:06:22 01/05/2023 14:31:35 HIV screening declined 6832388590 60246 Z53.20 Screening for malignant neoplasm of cervix 993364183 Z12.4 Anemia 520859059 D64.9 improvedco ntinue Fe supplement had iron infusion at [facility] once a week for 4 weekson Depot-Prov era now / still with heavy vaginal bleeding. seen by [facility] Asthma 067156426 J45.90 9 stable Hyperglycemia 21262126 R 73.9 HgA1C 6.4--> 6.1--> 6.3-->6.5- -> 6.7--> 5.1diet and exercise Obesity 895712225 E66.9 diet and exercises Essential hypertension 32139335 I10 had a lot of questions about her medswas told by ER doc , she is taking wrong meds??repe ated BP was 153/97 [id number] Rika Rodriguez MD [facility] (Adult/Fa m Med) [address] [place] [address] 02/25/2023 10:50:12 02/25/2023 15:43:44 HIV screening declined 6508219967 41731 Z53.20 Morbid obesity 217720746 E66.01 Essential hypertension 34030188 I10 increase metoprolol to 50 mg daily Anemia 295300936 D64.9 improvedco ntinue Fe supplement had iron infusion at [facility] once a week for 4 weekson Depot-Prov era now / still with heavy vaginal bleeding. seen by [facility] Asthma 599044949 J45.90 9 stable [id number] Christine Lora MA [facility] (Adult/Fa m Med) [address] [place] [address] 9 03/01/2023 14:55:15 03/04/2023 03:47:09 [id number] Deja Mora RN [facility] (Adult/Fa m Med) [address] [place] [address] 9 03/07/2023 16:07:32 03/07/2023 17:17:12 Hyperglycemia 90363684 R73.9 HgA1C 6.4--> 6.1--> 6.3-->6.5- -> 6.7--> 5.1diet and exercise [id number] Rika Rodriguez MD [facility] (Adult/Fa m Med) [address] [place] [address] 9 11/04/2023 10:09:39 11/07/2023 13:00:42 Body mass index 30+ - obesity 458927993 Z68.38 Anemia 096110081 D64.9 improvedco ntinue Fe supplement had iron infusion at [facility] once a week for 4 weekshad IUD Asthma 069552950 J45.90 9 stable Hyperglycemia 74674271 R 73.9 HgA1C 6.4--> 6.1--> 6.3-->6.5- -> 6.7--> 5.1-->8.3d iet and exercise Carpal jean paul jose l syndrome of right wrist 6865135654 34032 G56.01 acting up again? [id number] Rika Rodriguez MD [facility] (Adult/Fa m Med) [address] [place] [address] 9 04/25/2024 10:12:09 04/25/2024 14:12:33 HIV screening declined 9696625356 04516 Z53.20 Body mass index 30+ - obesity 451597753 Z68.38 Essential hypertension 82723511 I10 increase metoprolol to 50 mg daily Anemia 194384107 D64.9 improvedco ntinue Fe supplement [facility] for 4 weekshad IUD Asthma 588831974 J45.90 9 stable [id number] Rika Rodriguez MD [facility] (Adult/Fa m Med) [address] [place] [address] 05/15/2024 10:12:56 05/17/2024 14:25:41 HIV screening declined 9065951430 79912 Z53.20 Essential hypertension 81734967 I10 increase metoprolol to 50 mg daily Hyperglycemia 70313928 R 73.9 HgA1C 6.4--> 6.1--> 6.3-->6.5- -> 6.7--> 5.1-->8.3- -> 8.0diet and exercisere fused meds [id number] Rika Rodriguez MD [facility] (Adult/Fa m Med) [address] [place] [address] 07/05/2024 10:15:51 07/06/2024 11:54:26 Essential hypertension 15586874 I10 increase metoprolol to 50 mg daily Administra tion of influenza vaccine 62054389 Z23 refused HIV screen ing declined 5563746233 43747 Z53.20 Anemia 363320919 D64.9 improvedco ntinue Fe supplement had iron infusion at [facility] once a week for 4 weekshad IUD Asthma 618339408 J45.90 9 stable Hyperglycemia 71450518 R 73.9 HgA1C 6.4--> 6.1--> 6.3-->6.5- -> 6.7--> 5.1-->8.3- -> 8.0--> 7.3diet and exercisesa mples rybelsus 3 mg all SE explained [id number] Rika Rodriguez MD [facility] (Adult/Fa m Med) [address] [place] [address] 09/27/2024 11:28:56 09/27/2024 17:17:27 Essential hypertension 03364857 I10 increase metoprolol to 50 mg daily Hyperglycemia 45921222 R 73.9 HgA1C 6.4--> 6.1--> 6.3-->6.5- -> 6.7--> 5.1-->8.3- -> 8.0--> 7.3diet and exercisesa mples rybelsus 3 mg all SE explained Obesity 654773983 E66.9 diet and exercises HIV screen ing declined 5425316523 69168 Z53.20 Pain in le ft lower limb 877259251 M79.605 seen in UCno x-ray doneno redness or swelling. pain mostly in groin area? [id number] Rika Rodriguez MD [facility] (Adult/Fa m Med) [address] [place] [address] 10/26/2024 12:37:32 10/29/2024 10:46:33 Hyperglycemia 09739744 R73.9 HgA1C 6.4--> 6.1--> 6.3-->6.5- -> 6.7--> 5.1-->8.3- -> 8.0--> 7.3diet and exercisesa mples rybelsus 3 mg all SE explained Essential hypertension 11261277 I10 increase metoprolol to 50 mg daily Chest pain 70813301 R07. 9 stable Pain in le ft lower limb 242381667 M79.605 seen in UCno x-ray doneno redness or swelling. pain mostly in groin area? Hypokalemia 55231158 E87 .6 with spasm both legsK was 3.3 in the ER [id number] Christine Lora MA [facility] (Adult/Fa m Med) [address] [place] [address] 11/02/2024 11:13:21 11/05/2024 12:37:26 Hyperglycemia 39857789 R73.9 HgA1C 6.4--> 6.1--> 6.3-->6.5- -> 6.7--> 5.1-->8.3- -> 8.0--> 7.3diet and exercisesa mples rybelsus 3 mg all SE explained Health Concerns Section Related Observation LastModified by Organization Molly gomez LastModified Time None Recorded Concern Status LastModified by Organization Details LastModified Time None Recorded Advance Directives Directive N: Payers Encounter Date Sequence Insurance Name Policy Number Policy Barone Covered Member ID Barone Member ID Guarantor Name 05/15/2024 1 [facility] (MEDICAID HMO) [id number] Shamica Berta [id number] [place]ica [place] 07/05/2024 1 [facility] (MEDICAID HMO) [id number] Shamica Berta [id number] Shamica [place] 09/27/2024 1 [facility] (MEDICAID HMO) [id number] Sham[place] [id number] Shamica Berta 10/26/2024 1 [facility] (MEDICAID HMO) [id number] Shamica Berta [id number] Shamica Berta 11/02/2024 1 [facility] (MEDICAID HMO) [id number] Shamica Berta [id number] Shamica Berta Notes Date Note Type Note Provider Name and Address Organization Details Recorded Time 05/15/2024 text/html meds refill Rika Rodriguez MD Attn: [address] [place], [address], [facility] 05/15/2024 11:03:15 07/05/2024 text/html meds refdolly Rodriguez MD Attn: [address] [place], [address], [facility] 07/05/2024 10:59:22 09/27/2024 text/html medsee Rodriguez MD Attn: [address] [place], [address], [facility] 09/27/2024 12:41:38 10/26/2024 text/html meds refdolly Rodriguez MD Attn: [address] [place], [address], [facility] 10/26/2024 13:41:31 OBGyn Episode No OBEpisode recorded.
--- OUTSIDE RECORDS SUMMARY | 2024-12-22 07:25 | XMS_ITS | CONTINUITY OF CARE DOCUMENT ---
Author Name demetra mccrary Address Unknown Organization [facility] Address [address] [place] [address] Phone [phone] Care Team Providers Care Investment Advisor Name Role Phone Ceasar Aquino MD Unavailable [phone] Ceasar Aquino MD Unavailable [phone] INSURANCE PROVIDERS Payer name Policy type / Coverage type [place] [employer] [place] [employer] Medicaid [id number]
--- OUTSIDE RECORDS SUMMARY | 2024-12-22 07:25 | XMS_ITS | Clinical Summary ---
Author Organization [facility] Address [facility] [place] [address] Care Team Providers Care Permit Agent Name Role Phone Kenneth Rodriguez MD Primary Care Provider [phone] Allergies Active Allergy Reactions Criticality Noted Date Comments Sulfamethoxazole-Trimethop rim Nausea and Vomiting,Palpitations Low 12/17/2018 Hydrocodone-Acetaminophen Palpitations,N ausea and Vomiting Low 11/24/2017 Naproxen Palpitations,Nausea and Vomiting Low 11/24/2017 Medications Losartan Potassium-HCTZ 100-12.5 MG Tab Take 1 tablet by mouth daily. 90 tablet 1 9 Active nitroglycerin (NITROSTAT) 0.4 MG SL tablet If your chest pain recurs, please take a nitroglycerin tablet. If your pain is not relieved within 5 minutes, please call 911. You may take an additional 2 doses (one every 5 minutes) while waiting for the ambulance if needed. Please do not take more than 3 doses. 20 tablet 3 Active Additional Information Patient taking differently: If your chest pain recurs, please take a nitroglycerin tablet. If your pain is not relieved within 5 minutes, please call 911. You may take an additional 2 doses (one every 5 minutes) while waiting for the ambulance if needed. Please do not take more than 3 doses.Never has taken, Reported on 02/22/2023 metoprolol succinate ER (TOPROL-XL) 25 MG 24 hr tablet Take 2 tablets (50 mg total) by mouth every evening. Active VENTOLIN HFA 108 (90 Base) MCG/ACT inhaler INHALE TWO PUFFS EVERY 4 HOURS BY INHALATION ROUTE Active traMADol (ULTRAM) 50 MG tabletIndicati ons:Acute Pain < 3 Day Supply Take 1 tablet (50 mg total) by mouth every 6 (six) hours as needed for Pain. Indications: Acute Pain < 3 Day Supply 10 tablet 3 Active Active Problems Problem Noted Date Diagnosed Date Lower extremity pain 02/12/2019 Essential hypertension 02/12/2019 Heart palpitations 02/12/2019 Chest pain 12/17/2018 Lower extremity pain Encounters Date Type Department Care Team Description 10/25/2024 10:37 PM HAND MIXER - 10/26/2024 1:50 AM HAND MIXER Emergency [facility] [place] [address] Shahana Li PA Headache Discharge Disposition: Home or Self Care (Routine Discharge) 10/25/2024 Travel from Last 3 Months Family History Medical History Relation Comments Heart Disease Maternal Grandmother chf Hypertension Maternal Grandmother Stroke Maternal Grandmother Relation Status Comments Maternal Grandmother Social History Tobacco Use Types Packs/Day Years Used Date Smoking Tobacco: Never Smokeless Tobacco: Never Tobacco Cessation:Counseling Given: Not Answered Alcohol Use Standard Drinks/Week Comments No 0 (1 standard drink = 0.6 oz pur e alcohol) AUDIT-C Answer Date Recorded Frequency of Alcohol Consumption Never 12/17/2018 Average Number of Drinks Not on file 019 Frequency of Binge Drinking Not on file 12/01 Comments No Sex and Gender Information Value Date Recorded Sex Assigned at Female 12/17/2018 6:57 PM CDT Legal Sex Female 8:24 PM CDT Gender Identity Female 12/17/2018 6:57 PM CDT Sexual Orientation Straight 12/17/2018 6: 57 PM CDT Occupation Industry Job Start Date Job End Date Not on file Not on file Not on file Not on file Last Filed Vital Signs Vital Sign Reading Time Taken Comments Blood Pressure 163/98 10/26/2024 12:31 AM HAND MIXER Pulse 74 10/26/2024 12:31 AM HAND MIXER Temperature 36.5 C (97.7 F) 10/25/2024 10:22 PM HAND MIXER Respiratory Rate 18 10/26/2024 12:31 AM HAND MIXER Oxygen Saturation 100% 10/26/2024 12:31 AM HAND MIXER Inhaled Oxygen Concentration - - Weight 103.4 kg (228 lb) 10/25/2024 10:22 PM HAND MIXER Height 165.1 cm (5' 5 ) 10/25/2024 10:22 PM HAND MIXER Body Mass Index 37.94 10/25/2024 10:22 PM HAND MIXER Plan of Treatment Upcoming Encounters Date Type Department Care Team (Late st Contact Info) Description 01/17/2025 8:00 AM CDT Appointment [facility] [place] [id number] Russell Murillo MD [address] [phone] 01/17/2025 9:00 AM CDT Appointment [facility] [address] [place], [place] [phone] Russell Murillo MD [address] [phone] Health Maintenance Due Date Last Done Comments Colorectal Cancer Screening Colonoscopy (10 Years) 1978 Annual Physical 1981 DTaP, Tdap and Td Vaccines (1 - Tdap) 1997 Hepatitis B Vaccines (1 of 3 - 19+ 3-dose series) 1997 Cervical Cancer Screening Pap with HPV Testing (Age 30 to 64) Every 5 Years 2008 COVID-19 Vaccine ( season) 2024 Influenza Adult (#1) 2024 Mammogram Screening 07/16/2026 07/16/2024, 01/13/2024, 02/02/2022, Additional history exists Cervical Cancer Screening Pap Smear (Age 30 to 64) Every 3 Years 11/18/2026 11/18/2023, 10/19/2023, 04/04/2023 Cervical Cancer Screening with HPV 11/18/2026 Hepatitis C Completed 06/17/2022 HPV Vaccines Aged Out No longer eligi ble based on patient's age to complete this topic Meningococcal B Vaccine Aged Out No l onger eligible based on patient's age to complete this topic Meningococcal Vaccine Aged Out No manfred toyin eligible based on patient's age to complete this topic Pneumococcal Vaccine: Pediatrics (0 to 5 Years) and At-Risk Patients (6 to 64 Years) Aged Out No longer eligible based on patient's age to complete this topic RSV Immunizations Under 20 Months Aged Out No longer eligible based on patient's age to complete this topic Procedures Procedure Name Priority Date/Time Associated Diagnosis Comments TSH W/REFLEX STAT 10/26/2024 12:28 AM HAND MIXER MAGNESIUM STAT 10/26/2024 12:28 AM HAND MIXER TROPONIN, QUANT STAT 10/26/2024 12:28 AM HAND MIXER COMPREHENSIVE METABOLIC PANEL STAT 10/26/2024 12:28 AM HAND MIXER CBC W/DIFF AUTOMATED STAT 10/26/2024 12:28 AM HAND MIXER ECG 12-LEAD Routine 10/25/2024 10:48 PM HAND MIXER MG DIAG W XAVIER RT DIGI Routine 4 7:08 AM CDT Abnormal mammogram from Last 3 Months or Most Recently Relevant to Health Maintenance Results * TSH W/REFLEX (10/26/2024 12:28 AM HAND MIXER) TSH 2.740 0.358 - 3.74 uIU/ML 10/26/2024 1:31 AM HAND MIXER [facility] Comment: HIGH DOSES OF BIOTIN MAY INTERFERE WITH THIS TEST RESULT. CORRELATION TO CLINICAL HISTORY AND PRESENTATION RECOMMENDED. FREE T4 NOT INDICATED 10/26/2024 12:2 8 AM HAND MIXER us [facility] Final Result [facility] [address] [place] [address], [place] [phone] * (ABNORMAL) COMPREHENSIVE METABOLIC PANEL (10/26/2024 12:28 AM [facility] GLUCOSE 154(H) 70 - 99 MG/DL 10/26/2024 1:31 AM [facility] BUN 10 7 - 18 MG/DL 10/26/2024 1:31 AM [facility] CREATININE S/P/B 0.90 0.55 - 1.02 MG/DL 10/26/2024 1:31 AM [facility] SODIUM S/P/B 135(L) 136 - 145 MMOL/L 10/26/2024 1:31 AM [facility] POTASSIUM S/P/B 3.3(L) 3.5 - 5.1 MMOL/L 10/26/2024 1:31 AM [facility] CHLORIDE S/P/B 100 97 - 115 MMOL/L 10/26/2024 1:31 AM [facility] CO2 26.6 21 - 32 MMOL/L 10/26/2024 1:31 AM [facility] CALCIUM S/P/B 8.9 8.5 - 10.1 MG/DL 10/26/2024 1:31 AM [facility] BILIRUBIN TOTAL S/P/B 0.4 0.2 - 1.2 MG/DL 10/26/2024 1:31 AM [facility] Comment: THIS ASSAY IS NOT RECOMMENDED FOR PATIENTS UNDERGOING TREATMENT WITH ELTROMBOPAG DUE TO THE POTENTIAL FOR FALSELY ELEVATED RESULTS. TOTAL PROTEIN S/P/B 7.6 6.4 - 8.2 G/DL 10/26/2024 1:31 AM [facility] ALBUMIN S/P/B 3.4 3.4 - 5.0 G/DL 10/26/2024 1:31 AM [facility] AST 28 15 - 37 U/L 10/26/2024 1:31 AM [facility] ALT 35 14 - 55 U/L 10/26/2024 1:31 AM [facility] ALKALINE PHOSPHATASE S/P/B 74 50 - 136 U/L 10/26/2024 1:31 AM [facility] ANION GAP 8.4 2 - 10 MMOL/L 10/26/2024 1:31 AM [facility] BUN CREATININE RATIO 11.1 6 - 26 10/26/2024 1:31 AM [facility] A/G RATIO 0.8(L) 1.0 - 2.0 RATIO 10/26/2024 1:31 AM [facility] GFR ESTIMATE 80(L) >90 ML/MIN/1.7 3 M2 10/26/2024 1:31 AM [facility] Comment: NOTE: eGFR is not calculated for patients <18 years of age or gender unknown. This is an estimated GFR calculation using the new CKD EPI creatinine equation without race and so does not require a correction factor for race. This estimated GFR should not be used for calculating drug doses. 10/26/2024 12:2 8 AM HAND MIXER [facility] Final Result [facility] [address] [place] [address], * (ABNORMAL) CBC W/DIFF AUTOMATED (10/26/2024 12:28 AM HAND MIXER) WBC 11.17(H) 4.5 - 11.0 x10'3/uL 10/26/2024 1:05 AM [facility] RBC 4.00(L) 4.20 - 5.40 x10'6/uL 10/26/2024 1:05 AM [facility] HGB 10.5(L) 12.0 - 16.0 G/DL 10/26/2024 1:05 AM [facility] HCT 33.1(L) 38.0 - 48.0 % 10/26/2024 1:05 AM [facility] MCV 82.8 81.0 - 99.0 FL 10/26/2024 1:05 AM [facility] MCH 26.3(L) 27.0 - 31.0 PG 10/26/2024 1:05 AM [facility] MCHC 31.7(L) 32.0 - 36.0 G/DL 10/26/2024 1:05 AM [facility] RDW 12.3 11.5 - 14.5 % 10/26/2024 1:05 AM [facility] PLT 491(H) 130 - 400 x10'3/uL 10/26/2024 1:05 AM [facility] MPV 9.4 9.3 - 12.2 FL 10/26/2024 1:05 AM [facility] DIFFERENTIAL TYPE AUTOMATED DIFFERENTIAL 10/26/2024 1:05 AM [facility] NEUTROPHILS % 52.6 % 10/26/2024 1:05 AM [facility] LYMPHOCYTES % 37.8 % 10/26/2024 1:05 AM [facility] MONOCYTES % 7.5 % 10/26/2024 1:05 AM [facility] EOSINOPHILS 1.4 % 10/26/2024 1:05 AM [facility] BASOPHILS 0.4 % 10/26/2024 1:05 AM [facility] IMMATURE GRANS % 0.3 % 10/26/19 1:05 AM [facility] ABS. NEUTROPHILS 5.88 1.80 - 7.70 x10'3/uL 10/26/2024 1:05 AM [facility] ABS. LYMPHOCYTES 4.22 1.00 - 4.80 x10'3/uL 10/26/2024 1:05 AM [facility] ABS. MONOCYTES 0.84 0.24 - 0.86 x10'3/uL 10/26/2024 1:05 AM [facility] ABS. EOSINOPHILS 0.16 0.04 - 0.36 x10'3/uL 10/26/2024 1:05 AM [facility] ABS. BASOPHILS 0.04 0.01 - 0.08 x10'3/uL 10/26/2024 1:05 AM [facility] ABS. IMMATURE GRANULOCYTES 0.03 0.00 - 0.49 x10'3/uL 10/26/2024 1:05 AM [facility] 10/26/2024 12:2 8 AM HAND MIXER us [facility] Final Result [facility] [address] [place] [address], [place] [phone] * TROPONIN, QUANT (10/26/2024 12:28 AM HAND MIXER) TROPONIN I HIGH SENSITIVITY 11 <54 ng/L 10/26/2024 1:31 AM HAND MIXER [facility] Comment: HIGH DOSES OF BIOTIN, TROPONIN-SPECIFIC AUTOANTIBODIES, AND ANTIBODY THERAPY CONTAINING HAMA MAY INTERFERE WITH THIS TEST RESULT. CORRELATION TO CLINICAL HISTORY AND PRESENTATION RECOMMENDED. 10/26/2024 12:2 8 AM HAND MIXER us [facility] Final Result [facility] [address] [place] [address], * MAGNESIUM (10/26/2024 12:28 AM HAND MIXER) MAGNESIUM 2.3 1.8 - 2.4 MG/DL 10/26/2024 1:31 AM HAND MIXER [facility] 10/26/2024 12:2 8 AM HAND MIXER [facility] Final Result Performing Organization Address City/[facility] Co de Phone Number [facility] [address] [place] [address], * ECG 12 lead (10/25/2024 10:48 PM HAND MIXER) 10/25/2024 10:4 8 PM HAND MIXER Narrative [facility] RAD - 10/26/2024 3:55 PM HAND MIXER [address] Test Date: 2024-10-25 Pat Name: [facility] Department: Room: Gender: Female 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: : 1980 Requested By: SHAHANA LI Order Number: [id number] Reading MD: Arie Sykes Measurements Intervals Lily Rate: 90 P: 65 ND: 138 QRS: 21 QRSD: 85 T: 53 QT: 366 QTc: 448 Interpretive Statements SINUS RHYTHM Compared to ECG 01/06/2023 19:53:14 No significant changes No ischemic changes MIXER Procedure Note Arie Sykes MD - 10/26/[address] Test Date: 2024-10-25 Pat Name: CAROLYN HAMPTON Department: 41 Room: Gender: Female 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 Catcher: : 1980 Requested By: SHAHANA LI Order Number: [id number] Reading MD: Arie Sykes Measurements Intervals Lily Rate: 90 P: 65 ND: 138 QRS: 21 QRSD: 85 T: 53 QT: 366 QTc: 448 Interpretive Statements SINUS RHYTHM Compared to ECG 01/06/2023 19:53:14 No significant changes No ischemic changes MIXER us [facility] ORDERABLES Final Result [facility] * MG DIAG W XAVIER RT DIGI (07/16/2024 7:08 AM CDT) Anatomical Region Laterality Modality Breast Right Mammography 07/16/2024 7:47 AM CDT Impressions 07/16/2024 7:52 AM CDT ===== IMPRESSION: ===== 1. Grossly similar appearance to slightly complex cyst in the right retroareolar region as detailed above. Assessment: ACR BI-RADS 3 - PROBABLY BENIGN FINDING(S) - SHORT INTERVAL FOLLOW- UP SUGGESTED Recommendation: 1: Short interval follow-up in 6 months. Right Comments: Follow-up after 12/16/2024, would document 2 years of stability. Ordered By: RUSSELL MURILLO Interpreted By: Lowell Lee, 07/16/2024 7:47 AM Narrative 07/16/2024 7:52 AM CDT [facility] [address] [place] [address] Examination: Unilateral right diagnostic mammogram and ultrasound [id number] Exam Date/Time: 07/16/2024 6:55 AM Reason For Exam: abn imaging Follow-up. Comparison: 01/13/2024. 07/13/2023. 12/16/2022. Technique: Digital diagnostic mammography and ultrasound of the of the rightbreast was performed. . This study was read with the assistance of a computer-aided detection system. 3D tomographic images were obtained. Tissue density: The breasts are heterogeneously dense, which may obscure small masses. Findings: Mammogram: No suspicious microcalcification, architectural distortion, or mass. No significant interval change.. Stable appearance of well-defined nodule within the 9:00 position of the right retroareolar region.. Biopsy clip in upper outer quadrant of the right breast Ultrasound: Imaging at the 9:00 right retroareolar region. There is similar appearance to slightly complex cystic lesion. Through transmission. No abnormal color flow. Measures 6.6 x 5.9 x 5.6 mm. Prior measurement of 7.6 x 6.4 x 5.4 mm. Russell Murillo MD MAMMO Final Result from Last 3 Months or Most Recently Relevant to Health Maintenance Insurance [facility] Advance Directives * Full Code (Latest Code Status on File) Date Activated Date Inactivated Comments 12/17/2018 6:43 PM 12/18/2018 7:22 PM Care Teams Permit Agent Relationship Specialty Start Date End Date Kenneth Rodriguez MD [address] [address] PCP - General 04/19/15
--- OUTSIDE RECORDS SUMMARY | 2024-12-22 07:25 | XMS_ITS | Clinical Summary ---
Author Organization [facility] Address [address] [place] [address] Care Team Providers Care Pulmonary Disease Specialist Name Role Phone Kenneth Rodriguez MD Primary Care Provider [phone] Source Comments [facility],non-owned Affiliates and Associated Physician Practices is amultiple site organization consisting of ambulatory clinics and hospital sitesin [place], [place] and [place]. This disclosure is being madepursuant to the Care Everywhere program and may not contain all information available regarding this patient. Last updated 18.[facility] [employer] Allergies Active Allergy Reactions Criticality Noted Date Comments Sulfamethoxazole W-Trimethoprim Nausea and/or Vomiting 11/24/2017 Hydrocodone-Acetaminophen Dizziness,Naus ea and/or Vomiting,Palpitation s Low 11/24/2017 Feeling high Naproxen Nausea and/or Vomiting 11/24/2017 Medications * Be aware that medications may not be up to date on this document. Alwaysverify current medications with the patient. Medication Sig Dispensed Refills Start Date End Date Status ALBUTEROL IN Active losartan-hydroCHLOR Othiazide (HYZAAR) 100-12.5 MG tablet every 24 hours Ac tive albuterol HFA (VENTOLIN HFA) 108 (90 Base) MCG/ACT inhaler Ventolin HFA 90 mcg/actuation aerosol inhaler Inhale 2 puff(s) every 4 hours by inhalation route. Active metoprolol succinate XL 24hr (Toprol XL) 25 MG tablet Take 1.5 (one and one-half) tablets by mouth once daily Active levonorgestrel (Mirena) 20 MCG/DAY IUD 10/19/2023 10/18/2028 Active polyethylene glycol (Golytely) solution Drink 1/2 of the prep at 5PM evening before the procedure. Drink remaining prep at 4AM on the day of the procedure. 4000 mL 10/12/2024 Active Active Problems Problem Noted Date Diagnosed Date Iron deficiency anemia due to chronic blood loss 06/17/2022 Overview (11/04/2024): 10/30/24 EGD and colonoscopy normal, duodenal biopsies normal 10/30/24 TTG IgA normal, total IgA normal Menorrhagia with regular cycle 06/17/2022 Asthma 06/17/2022 Obesity 06/17/2022 Essential hypertension 02/12/2019 Encounters Date Type Department Care Team Description 12/03/2024 Telephone [facility] BMT CLINIC [address] [place] [phone] Nora Garcia RN 11/23/2024 11:00 AM GYMNASTICS COACH OR INSTRUCTOR - 11/23/2024 11:59 PM GYMNASTICS COACH OR INSTRUCTOR Hospital Encounter [facility] BMT [address] [phone] Mary Ann Ann MD Kunwor, Ranju, MD Discharge Disposition: Home or Self Care 11/23/2024 Travel 11/16/2024 Telephone [facility] BMT [address] [phone] Nora Garcia RN 11/09/2024 Telephone [facility] B[facility] CLINIC [address] [place] [phone] Renetta Casas RN 11/02/2024 Telephone [facility] B[facility] CLINIC [address] [place] [phone] Renetta Casas, RN 10/30/2024 8:00 AM GYMNASTICS COACH OR INSTRUCTOR Anesthesia Event [facility] ENDOSCOPY [address] [place] [address] Jesus Lee MD 10/30/2024 7:55 AM GYMNASTICS COACH OR INSTRUCTOR - 10/30/2024 8:45 AM GYMNASTICS COACH OR INSTRUCTOR Surgery [facility] ENDOSCOPY [address] [place] [address] Leo Mena MD EGD 10/30/2024 6:47 AM GYMNASTICS COACH OR INSTRUCTOR - 10/30/2024 9:36 AM GYMNASTICS COACH OR INSTRUCTOR Hospital Encounter [facility] CHUCK OP [address] [place] [address] Leo Mena MD Surgery General Discharge Disposition: Home or Self Care 10/30/2024 Travel 10/26/2024 2:41 PM GYMNASTICS COACH OR INSTRUCTOR - 10/26/2024 11:59 PM GYMNASTICS COACH OR INSTRUCTOR Hospital Encounter [facility] BMT CLINIC [address] [place] [phone] Mary Ann Ann MD Kunwor, Ranju, MD Discharge Disposition: Home or Self Care 10/26/2024 Travel 10/22/2024 Patient Outreach [facility] ENDOSCOPY [address] [place] [phone] Aurelia Tang, LEANNA Pre-op Instructions 10/19/2024 Telephone [facility] BMT CLINIC [address] [place] [phone] Nora Garcia, LEANNA 10/19/2024 Telephone [facility] BMT CLINIC [address] [place] [phone] Nora Garcia, LEANNA 10/12/2024 12:02 PM GYMNASTICS COACH OR INSTRUCTOR - 10/12/2024 11:59 PM GYMNASTICS COACH OR INSTRUCTOR Hospital Encounter [facility] BMT CLINIC [address] [place] [phone] Yeyo Swan MD Discharge Disposition: Home or Self Care 10/12/2024 Orders Only [facility] ENDOSCOPY [address] [place] [phone] Donny Fernández RN 10/12/2024 Orders Only [facility] BMT CLINIC [address] [place] [phone] Nora Garcia, LEANNA Iron deficiency anemia due to chronic blood loss 10/12/2024 Travel 10/11/2024 Orders Only [facility] - Hematology/Oncology [address] [place] [address] [place] [phone] Yeyo Swan MD Iron deficiency anemia due to chronic blood loss 10/11/2024 Telephone [facility] BMT CLINIC [address] [place] [phone] Katie Summers from Last 3 Months Family History Medical History Relation Name Comments Diabetes - Type 2 Mother Other - Cardiac Mother chf Asthma Neg Hx Autoimmune Disease Neg Hx Bipolar Disorder Neg Hx Cancer - Breast Neg Hx Cancer - Colon Neg Hx Cancer - Other Neg Hx Cancer - Ovarian Neg Hx Cancer - Pancreatic Neg Hx Cancer - Prostate Neg Hx Depression Neg Hx Eczema Neg Hx Hypertension Neg Hx Migraine Neg Hx Osteoporosis Neg Hx Seizures Neg Hx Sudd. <30 Neg Hx Thyroid Disease Neg Hx Ulcerative Colitis Neg Hx Relation Name Status Comments Father Mother Social History Tobacco Use Types Packs/Day Years Used Date Smoking Tobacco: Never Smokeless Tobacco: Never Tobacco Cessation:Counseling Given: Not Answered Alcohol Use Standard Drinks/Week Comments No 0 (1 standard drink = 0.6 oz pur e alcohol) PHQ-2 Answer Date Recorded PHQ2 TOTAL SCORE 0 05/22/2021 Sex and Gender Information Value Date Recorded Sex Assigned at Not on file Gender Identity Not on file Sexual Orientation Not on file Last Filed Vital Signs Vital Sign Reading Time Taken Comments Blood Pressure 151/74 11/23/2024 11:20 AM GYMNASTICS COACH OR INSTRUCTOR Pulse 88 11/23/2024 11:20 AM GYMNASTICS COACH OR INSTRUCTOR Temperature 37.3 C (99.1 F) 11/23/2024 11:20 AM GYMNASTICS COACH OR INSTRUCTOR Respiratory Rate 18 11/23/2024 11:2 0 AM GYMNASTICS COACH OR INSTRUCTOR Oxygen Saturation 100% 11/23/2024 11: 20 AM GYMNASTICS COACH OR INSTRUCTOR Inhaled Oxygen Concentration - - Weight 101.9 kg (224 lb 9.6 oz) 025 11:20 AM GYMNASTICS COACH OR INSTRUCTOR Height 165.1 cm (5' 5 ) 10/30/2024 7:18 AM GYMNASTICS COACH OR INSTRUCTOR Body Mass Index 37.38 10/30/2024 7:18 AM GYMNASTICS COACH OR INSTRUCTOR Plan of Treatment Upcoming Encounters Date Type Department Care Team (Late st Contact Info) Description 04/12/2025 11:40 AM CDT Appointment [facility] BMT CLINIC [address] [place] [address] Yeyo Swan MD [address] [place] [phone] Health Maintenance Due Date Last Done Comments COLOGUARD (AGES 45-75) - COLON CA SCREENING 1978 CT COLONOGRAPHY - COLON CA SCREENING 1980 FIT - COLON CA SCREENING 1980 FLEX SIG - COLON CA SCREENING 1978 PAP SMEAR 1978 HIV SCREENING 1993 DTAP/TDAP/TD VACCINES (1 - Tdap) 1997 HEPATITIS B VACCINE (1 of 3 - 19+ 3-dose series) 1997 PNEUMOCOCCAL VACCINE (1 of 2 - PCV) 1997 LIPID TESTING 12/19/2023 12/18/2018 COVID-19 VACCINE (1 - season) 2024 INFLUENZA VACCINE (#1) 2024 DEPRESSION SCREENING 10/03/2024 MAMMOGRAM 07/16/2026 07/16/2024, 01/01, 02/02/2022, Additional history exists SCREENING FOR DIABETES 10/30/2027 , 10/12/2024, 12/07/2023, Additional history exists ZOSTER VACCINE (1 of 2) 2028 COLON MONITORING 10/30/2034 10/30/2024, 10/30/2024 COLONOSCOPY - COLON CA SCREENING 10/30/2034 10/30/2024, 10/30/2024 Colorectal Cancer Screening 10/30/2034 HEPATITIS C SCREENING Completed 06/17/2022 HIB VACCINE Aged Out No longer eligi ble based on patient's age to complete this topic HPV VACCINE Aged Out No longer eligi ble based on patient's age to complete this topic MENINGOCOCCAL (Group B) VACCINE SHARED DECISION-MAKING Aged Out No longer eligible based on patient's age to complete this topic MENINGOCOCCAL GROUPS A/C/Y/W VACCINE Aged Out No longer eligible based on patient's age to complete this topic Procedures Procedure Name Priority Date/Time Associated Diagnosis Comments IGA BLOOD Routine 10/30/2024 9:21 AM GYMNASTICS COACH OR INSTRUCTOR Iron deficiency anemia due to chronic blood loss TISSUE TRANSGLUTAMINASE AB IGA AM Draw 10/30/2024 9:21 AM GYMNASTICS COACH OR INSTRUCTOR Iron deficiency anemia due to chronic blood loss ENDOSCOPY, COLON, SCREENING Routine 10/30/2024 8:14 AM GYMNASTICS COACH OR INSTRUCTOR PATHOLOGY TISSUE Routine 10/30/2024 8:08 AM GYMNASTICS COACH OR INSTRUCTOR Iron deficiency anemia, unspecified iron deficiency anemia type [place] COLOREC CANC SCRN,SCOPY NOT HI RISK 10/30/2024 7:55 AM GYMNASTICS COACH OR INSTRUCTOR Iron deficiency anemia, unspecified iron deficiency anemia type Special Needs EGD and colonoscopy Received: Today Renetta Casas RN Johnson, Sarah N., LEANNA Garcia, can you please schedule this patient for EGD and colonoscopy sometime in the next month? Thanks. Renetta Casas RN, BSN, BMT-CN BMT Coordinator for Dr. Yeyo Swan [facility] [phone] Received Date Received Time Oct 12, 2024 1:51 PM [place] ED EGD FLEX TRANSORAL DX 10/30/2024 7:55 AM GYMNASTICS COACH OR INSTRUCTOR Iron deficiency anemia, unspecified iron deficiency anemia type Special Needs EGD and colonoscopy Received: Today Renetta Casas RN Johnson, Sarah N., RN Radha, can you please schedule this patient for EGD and colonoscopy sometime in the next month? Thanks. Renetta Casas RN, BSN, BMT-CN BMT Coordinator for Dr. Yeyo Swan [facility] [phone] Received Date Received Time Oct 12, 2024 1:51 PM GLUCOSE - POINT OF CARE Routine 10/30/2024 7:45 AM GYMNASTICS COACH OR INSTRUCTOR EGD Routine 10/30/2024 7:33 AM GYMNASTICS COACH OR INSTRUCTOR HCG URINE QUALITATIVE - POCT (IP) INTERFACED Routine 10/30/2024 7:32 AM GYMNASTICS COACH OR INSTRUCTOR HCG URINE QUAL POCT NOTIFICATION STAT 10/30/2024 7:27 AM GYMNASTICS COACH OR INSTRUCTOR Essential hypertension SOLUBLE TRANSFERRIN RECEPTOR STAT 10/12/2024 12:16 PM GYMNASTICS COACH OR INSTRUCTOR Iron deficiency anemia due to chronic blood loss IRON + TRANSFERRIN PANEL STAT 10/12/2024 12:16 PM GYMNASTICS COACH OR INSTRUCTOR Iron deficiency anemia due to chronic blood loss FERRITIN CARMELINA 10/12/2024 12:16 PM GYMNASTICS COACH OR INSTRUCTOR Iron deficiency anemia due to chronic blood loss CBC W AUTO DIFFERENTIAL STAT 10/12/2024 12:16 PM GYMNASTICS COACH OR INSTRUCTOR Iron deficiency anemia due to chronic blood loss COMPREHENSIVE METABOLIC PANEL STAT 10/12/2024 12:16 PM GYMNASTICS COACH OR INSTRUCTOR Iron deficiency anemia due to chronic blood loss HEPATITIS C RNA QUANTITATIVE STAT 06/17/2022 1:48 PM CDT Anemia, unspecified type from Last 3 Months or Most Recently Relevant to Health Maintenance Results * TISSUE TRANSGLUTAMINASE AB IGA (10/30/2024 9:21 AM GYMNASTICS COACH OR INSTRUCTOR) Tissue Transglutaminase (tTG) Ab, IgA 2.34 0.00 - 4.99 FLU 11/01/2024 4:09 AM GYMNASTICS COACH OR INSTRUCTOR [employer] ([facility]) Comment: INTERPRETIVE INFORMATION: Tissue Transglutaminase (tTG) Antibody, IgA Presence of the tissue transglutaminase (tTG) IgA antibody is associated with gluten-sensitive enteropathies such as celiac disease and dermatitis herpetiformis. Individuals with positive results should be confirmed with small intestinal biopsy to establish celiac disease diagnosis. tTG IgA antibody concentrations greater than 50 FLU exhibits higher correlation with results of duodenal biopsies consistent with celiac disease. For antibody concentrations greater than or equal to 5 FLU but less than 10 FLU, additional testing for endomysial (BECKI) IgA concentrations may improve the positive predictive value for disease. A decrease in tTG IgA antibody concentration after initiation of a gluten-free diet may indicate a response to therapy. Performed By: [facility] [address] [place] [id number] Brake Adjuster: Charles Verma MD, PhD CLIA Number: [id number] Blood BLOOD SPECIMEN / Unknown Venipuncture / Unknown 10/30/2024 9:21 AM GYMNASTICS COACH OR INSTRUCTOR 10/30/2024 9:25 AM GYMNASTICS COACH OR INSTRUCTOR Leo Rubio MD LAB - SERO LOGY ORDERABLES [facility] ([facility]) [address] * (ABNORMAL) IGA BLOOD (10/30/2024 9:21 AM GYMNASTICS COACH OR INSTRUCTOR) IgA 747(H) 61 - 356 mg/dL 10/30/2024 10:03 AM GYMNASTICS COACH OR INSTRUCTOR [facility] Comment:Result obtained by jelena burroughs. Blood BLOOD SPECIMEN / Unknown Venipuncture / Unknown 10/30/2024 9:21 AM GYMNASTICS COACH OR INSTRUCTOR 10/30/2024 9:25 AM GYMNASTICS COACH OR INSTRUCTOR Leo Rubio MD LAB - CHEM ISTRY ORDERABLES [facility] [address] [place] [address], [facility] [phone] * Endoscopy, Colon, Screening (10/30/2024 8:14 AM GYMNASTICS COACH OR INSTRUCTOR) Report Endoscopy POC Endoscopy Department Report _ Patient Name: Carolyn Hampton Procedure Date: 10/30/2024 8:14 AM Date of : 1980 Classification: Outpatient Gender: Female Ethnicity: Not or Race: Black or _ Providers: Leo Xavier MD Referring MD: Kenneth Rodriguez (Referring ) Procedure: Colonoscopy Indications: Screening for colorectal malignant neoplasm, Incidental - Iron deficiency anemia Medications: Monitored Anesthesia Care Description of Procedure: Pre-Anesthesia Assessment: - Prior to the procedure, a History and Physical was performed, and patient medications and allergies were reviewed. The patient's tolerance of previous anesthesia was also reviewed. The risks and benefits of the procedure and the sedation options and risks were discussed with the patient. All questions were answered, and informed consent was obtained. Prior Anticoagulants: The patient has taken no anticoagulant or antiplatelet agents. ASA Grade Assessment: II - A patient with mild systemic disease. After reviewing the risks and benefits, the patient was deemed in satisfactory condition to undergo the procedure. - Prior Aspirin/ NSAID therapy: The patient has taken no aspirin or NSAID medications. After I obtained informed consent, the scope was passed under direct vision. Throughout the procedure, the patient's blood pressure, pulse, and oxygen saturations were monitored continuously. The Colonoscope was introduced through the anus and advanced to 3 cm into the ileum. The colonoscopy was performed without difficulty. The patient tolerated the procedure well. The quality of the bowel preparation was excellent. The terminal ileum, ileocecal valve, appendiceal orifice, and rectum were photographed. Findings: The perianal and digital rectal examinations were normal. The entire examined colon appeared normal on direct and retroflexion views. No polyps, masses, diverticulae or other mucosal abnormalities. Estimated Blood Loss: Estimated blood loss: none. Complications: No immediate complications. Impression: - The entire examined colon is normal on direct and retroflexion views. - No specimens collected. Recommendation: - Patient has a contact number available for emergencies. The signs and symptoms of potential delayed complications were discussed with the patient. Return to normal activities tomorrow. Written discharge instructions were provided to the patient. - Resume previous diet. - Continue present medications. - Repeat colonoscopy in 10 years for surveillance. - Return to referring physician as previously scheduled. Attending Participation: I personally performed the entire procedure. Procedure Code(s): --- Professional --- 48836, Colonoscopy, flexible; diagnostic, including collection of specimen(s) by brushing or washing, when performed (separate procedure) Diagnosis Code(s): --- Professional --- Z12.11, Encounter for screening for malignant neoplasm of colon CPT copyright 2021 [employer]. All rights reserved. The codes documented in this report are preliminary and upon medical billing coder review may be revised to meet current compliance requirements. Leo Xavier MD 10/30/2024 8:53:54 AM This report has been signed electronically. Note Initiated On: 10/30/2024 8:14 AM Number of Addenda: [address] [phone] [facility] PROVATION 10/30/2024 8:14 AM GYMNASTICS COACH OR INSTRUCTOR Leo Rubio MD GI PROCEDU RE ORDERABLES [facility] PROVATION * PATHOLOGY TISSUE (10/30/2024 8:08 AM GYMNASTICS COACH OR INSTRUCTOR) Case Report Surgical Pathology Report Case: [id number] Authorizing Provider: Leo Rubio Collected: 10/30/2024 08:08 AM MD Beronica Ordering Location: [facility] ENDOSCOPY Received: 10/30/2024 09:51 AM Pathologist: Raquel Martinez MD Specimen: Duodenal Biopsy, duodenal bx - iron deficiency, r/o celiac disease 10/31/2024 1:19 PM [facility] Final Diagnosis Small intestine, duodenum, biopsy (A): - No histopathologic abnormality - Intact villous and crypt architecture without increased intraepithelial lymphocytes 10/31/2024 1:19 PM [facility] Microscopic Description and Comment Microscopic examination substantiates the final diagnosis. 10/31/2024 1:19 PM [facility] Clinical History The patient is a 43 year old woman with iron deficiency anemia. Operative procedure/findings: EGD - normal duodenum, biopsied to rule out celiac disease. 10/31/2024 1:19 PM [facility] Gross Description The requisition and specimen(s) are identified with the patient's name, Carolyn Hampton. Received in formalin, specimen A , are multiple thornton-white, friable and flocculent soft tissue fragments, ranging from 0.1 to 0.3 cm and measuring 0.7 x 0.5 x 0.1 cm in aggregate, submitted in toto as cassette A1. AL 10/31/2024 1:19 PM [facility] Pathologist Location at [facility] 10/31/2024 1:19 PM [facility] Disclaimer The performance characteristics of all immunohistochemical and indirect immunofluorescence stains (if any) cited in this report were determined by the Histopathology Laboratory of [facility]. Some of these tests were developed by our own laboratory and have not been cleared or approved by the US Food and Drug Administration. The FDA does not require this test to go through premarket FDA review. These tests are used for clinical purposes. They should not be regarded as investigational or for research. This laboratory is certified under the Clinical Laboratory Improvement Amendments (CLIA) as qualified to perform high complexity clinical laboratory testing. This case has been personally reviewed and interpreted by the attending (teaching) pathologist. 10/31/2024 1:19 PM [facility] Embedded Images 10/31/2024 1:19 PM [facility] Biopsy, NOS DUODENAL BIOPSY SPECIMEN / Unknown 10/30/2024 8:08 AM GYMNASTICS COACH OR INSTRUCTOR 10/30/2024 9:51 AM GYMNASTICS COACH OR INSTRUCTOR Leo Rubio MD LAB - PATH OLOGY/CYTOLOGY ORDERABLES Performing Organization Address City/[facility]/ZIP Co de Phone Number [facility] [address] [phone] * (ABNORMAL) GLUCOSE - POINT OF CARE (10/30/2024 7:45 AM GYMNASTICS COACH OR INSTRUCTOR) Glucose WB/POC 156(H) 70 - 99 mg/dL 10/30/2024 10:21 AM [facility] Specimen Type Venous 10/30/2024 10:21 AM [facility] Blood BLOOD SPECIMEN / Unknown 10/30/2024 7:45 AM GYMNASTICS COACH OR INSTRUCTOR 10/30/2024 10:21 AM GYMNASTICS COACH OR INSTRUCTOR Leo Rubio MD LAB - POIN T OF CARE ORDERABLES Performing Organization Address City/[facility]/ZIP Co de Phone Number [facility]ORY [facility] [address] [id number] [phone] * EGD (10/30/2024 7:33 AM GYMNASTICS COACH OR INSTRUCTOR) Report Endoscopy POC Endoscopy Department Report _ Patient Name: Carolyn Hampton Procedure Date: 10/30/2024 7:33 AM Date of : 1980 Classification: Outpatient Gender: Female Ethnicity: Not or Race: Black or _ Providers: Leo Xavier MD Referring MD: Kenneth Rodriguez (Referring MD) Procedure: Upper GI endoscopy Indications: Iron deficiency anemia Medications: Monitored Anesthesia Care Description of Procedure: Pre-Anesthesia Assessment: - Prior to the procedure, a History and Physical was performed, and patient medications and allergies were reviewed. The patient's tolerance of previous anesthesia was also reviewed. The risks and benefits of the procedure and the sedation options and risks were discussed with the patient. All questions were answered, and informed consent was obtained. Prior Anticoagulants: The patient has taken no anticoagulant or antiplatelet agents. ASA Grade Assessment: II - A patient with mild systemic disease. After reviewing the risks and benefits, the patient was deemed in satisfactory condition to undergo the procedure. - Prior Aspirin/ NSAID therapy: The patient has taken no aspirin or NSAID medications. After obtaining informed consent, the endoscope was passed under direct vision. Throughout the procedure, the patient's blood pressure, pulse, and oxygen saturations were monitored continuously. The Endoscope was introduced through the mouth, and advanced to the second part of duodenum. The upper GI endoscopy was accomplished without difficulty. The patient tolerated the procedure well. Findings: The Z-line was regular and was found 38 cm from the incisors. The examined esophagus was normal. No GERD changes. The entire examined stomach was normal. Normal mucosa throughout on careful inspection. The examined duodenum was normal. Biopsies were taken with a cold forceps for histology. Verification of patient identification for the specimen was done by the nurse using the patient's name and date. Estimated blood loss was minimal. Estimated Blood Loss: Estimated blood loss was minimal. Complications: No immediate complications. Impression: - Z-line regular, 38 cm from the incisors. - Normal esophagus. - Normal stomach. - Normal examined duodenum. Biopsied. Recommendation: - Patient has a contact number available for emergencies. The signs and symptoms of potential delayed complications were discussed with the patient. Return to normal activities tomorrow. Written discharge instructions were provided to the patient. - Resume previous diet. - Continue present medications. - Await pathology results. Attending Participation: I personally performed the entire procedure. Procedure Code(s): --- Professional --- 85411, Esophagogastroduod enoscopy, flexible, transoral; with biopsy, single or multiple Diagnosis Code(s): --- Professional --- D50.9, Iron deficiency anemia, unspecified CPT copyright 2021 [employer]. All rights reserved. The codes documented in this report are preliminary and upon medical billing coder review may be revised to meet current compliance requirements. Leo Xavier MD 10/30/2024 8:50:50 AM This report has been signed electronically. Note Initiated On: 10/30/2024 7:33 AM Number of Addenda: [address] [address] [facility] [employer] 10/30/2024 7:33 AM GYMNASTICS COACH OR INSTRUCTOR Leo Rubio MD GI PROCEDU RE ORDERABLES [facility] * HCG URINE QUALITATIVE - POCT (IP) INTERFACED (10/30/2024 7:32 AM GYMNASTICS COACH OR INSTRUCTOR) HCG Qual Urine Negative Negative 10/30/2024 7:38 AM GYMNASTICS COACH OR INSTRUCTOR [facility] Urine URINE / Unknown 10/30/2024 7 :32 AM GYMNASTICS COACH OR INSTRUCTOR 10/30/2024 7:38 AM GYMNASTICS COACH OR INSTRUCTOR Leo Rubio MD LAB - POIN T OF CARE ORDERABLES Performing Organization Address City/[facility]/ZIP Co de Phone Number [address] [address], [place] [phone] * HCG URINE QUAL POCT NOTIFICATION (10/30/2024 7:27 AM GYMNASTICS COACH OR INSTRUCTOR) Comment Notification Label Only - See Separate Report 10/30/2024 8:30 AM GYMNASTICS COACH OR INSTRUCTOR [facility] Urine URINE / Unknown 10/30/2024 7 :27 AM GYMNASTICS COACH OR INSTRUCTOR 10/30/2024 7:28 AM GYMNASTICS COACH OR INSTRUCTOR Leo Rubio MD LAB - URIN ALYSIS ORDERABLES Performing Organization Address City/[facility]/ZIP Co de Phone Number [address] [address], [place] [phone] * (ABNORMAL) SOLUBLE TRANSFERRIN RECEPTOR (10/12/2024 12:16 PM GYMNASTICS COACH OR INSTRUCTOR) Soluble Transferrin Receptor 6.6(H) 1.9 - 4.4 mg/L 10/15/2024 4:21 PM GYMNASTICS COACH OR INSTRUCTOR [facility] [place] ([facility]) Comment: INTERPRETIVE INFORMATION: Soluble Transferrin Receptor People of descent and those residing at 5200 feet (1600 meters) above sea level were found to have a 6% higher normal value. These differences were additive. Reference intervals have not been established for females, patients under 18 years of age, and recent or frequent blood donors. Serum soluble transferrin receptor increases in iron deficiency and is usually unaffected by chronic disease states. In general, to increase sensitivity and specificity, the measurement of serum soluble transferrin receptor should be performed in combination with other tests of iron status, including ferritin, TIBC, and serum iron. (See Table Below). Tests for Iron Anemia of Combined Iron Changes Def. Chronic Def. and anemia Analyte in: Anemia Disease of Chronic Dz ------- -------- ------ --------- Ferritin Fe Stores Low High Normal or High TIBC Fe Status High Low Normal or High Serum Fe Fe Status Low Low Low sTfR Fe Status High Normal High Performed By: [facility] [address] [place] [address] Brake Adjuster: Charles Verma MD, PhD CLIA Number: [id number] Blood BLOOD SPECIMEN / Unknown Venipuncture / Unknown 10/12/2024 12:16 PM GYMNASTICS COACH OR INSTRUCTOR 10/12/2024 12:21 PM GYMNASTICS COACH OR INSTRUCTOR Yeyo Swan MD LAB - CHEMISTRY ORDE ELLEN [facility] ([facility]) [address] [place] [address], [facility] * (ABNORMAL) CBC WITH DIFFERENTIAL (10/12/2024 12:16 PM [facility]) WBC 9.7 4.0 - 10.7 x10E9/L 10/12/2024 12:26 PM [facility] RBC Count 4.25 3.90 - 5.20 x10E12/L 10/12/2024 12:26 PM [facility] Hemoglobin 11.8(L) 11.9 - 15.8 g/dL 10/12/2024 12:26 PM [facility] Hematocrit 34.7(L) 34.8 - 46.1 % 10/12/2024 12:26 PM [facility] MCV 81.6 80.0 - 98.0 fL 10/12/2024 12:26 PM [facility] MCH 27.8 26.7 - 33.6 pg 10/12/2024 12:26 PM [facility] MCHC 34.0 31.7 - 36.3 g/dL 10/12/2024 12:26 PM [facility] RDW-CV 12.1 11.3 - 14.8 % 10/12/2024 12:26 PM [facility] Platelet Count 377 150 - 420 x10E9/L 10/12/2024 12:26 PM [facility] MPV 9.5 7.8 - 11.4 fL 10/12/2024 12:26 PM [facility] Preliminary Absolute Neutrophil 6.14 1.60 - 7.50 x10E9/L 10/12/2024 12:26 PM [facility] Neutrophil % 63.7 41.0 - 74.0 % 10/12/2024 12:26 PM [facility] Lymphocyte % 27.4 17.0 - 47.0 % 10/12/2024 12:26 PM [facility] Monocyte % 7.0 3.0 - 11.0 % 10/12/2024 12:26 PM [facility] Eosinophil % 1.3 0.0 - 7.0 % 10/12/2024 12:26 PM [facility] Basophil % 0.3 0.0 - 1.6 % 10/12/2024 12:26 PM [facility] Immature Granulocytes % 0.3 0.0 - 1.0 % 10/12/2024 12:26 PM [facility] Neutrophil Absolute 6.14 1.60 - 7.50 x10E9/L 10/12/2024 12:26 PM [facility] Lymphocyte Absolute 2.65 1.00 - 4.40 x10E9/L 10/12/2024 12:26 PM [facility] Monocyte Absolute 0.68 0.15 - 1.00 x10E9/L 10/12/2024 12:26 PM [facility] Eosinophil Absolute 0.13 0.00 - 0.60 x10E9/L 10/12/2024 12:26 PM [facility] Basophil Absolute 0.03 0.00 - 0.13 x10E9/L 10/12/2024 12:26 PM [facility] Blood BLOOD SPECIMEN / Unknown Venipuncture / Unknown 10/12/2024 12:16 PM GYMNASTICS COACH OR INSTRUCTOR 10/12/2024 12:21 PM GYMNASTICS COACH OR INSTRUCTOR Yeyo Swan MD LAB - HEMATOLOGY ORD ERABLES [facility] [address] [place] [address], [facility] [phone] * (ABNORMAL) COMPREHENSIVE METABOLIC PANEL (10/12/2024 12:16 PM [facility]) BUN 11 7 - 26 mg/dL 10/12/2024 12:54 PM [facility] Creatinine 0.72 0.56 - 0.96 mg/dL 10/12/2024 12:54 PM [facility] Sodium 137 136 - 145 mmol/L 10/12/2024 12:54 PM [facility] Potassium 3.8 3.5 - 4.5 mmol/L 10/12/2024 12:54 PM [facility] Chloride 104 98 - 107 mmol/L 10/12/2024 12:54 PM [facility] CO2 24 22 - 29 mmol/L 10/12/2024 12:54 PM [facility] Glucose 244(H) 70 - 99 mg/dL 10/12/2024 12:54 PM [facility] Calcium 8.9 8.4 - 10.2 mg/dL 10/12/2024 12:54 PM [facility] Protein Total 7.2 6.0 - 8.3 g/dL 10/12/2024 12:54 PM [facility] Albumin 3.5 3.4 - 5.0 g/dL 10/12/2024 12:54 PM [facility] Bilirubin Total 0.3 0.2 - 1.2 mg/dL 10/12/2024 12:54 PM [facility] Alkaline Phosphatase 76 40 - 150 U/L 10/12/2024 12:54 PM [facility] ALT 23 5 - 55 U/L 10/12/2024 12:54 PM [facility] AST 17 5 - 34 U/L 10/12/2024 12:54 PM [facility] Anion Gap 9 6 - 16 10/12/2024 12:54 PM [facility] BUN/Creatinine Ratio 15 7 - 23 10/12/2024 12:54 PM [facility] Osmolality Calculated 291 275 - 295 mOsm/kg 10/12/2024 12:54 PM [facility] Albumin/Globulin Ratio 0.9(L) 1.1 - 2.3 10/12/2024 12:54 PM [facility] eGFR by CKD-EPI >90 >=90 mL/min/1.7 3 m2 10/12/2024 12:54 PM [facility] Blood BLOOD SPECIMEN / Unknown Venipuncture / Unknown 10/12/2024 12:16 PM GYMNASTICS COACH OR INSTRUCTOR 10/12/2024 12:21 PM GYMNASTICS COACH OR INSTRUCTOR Yeyo Swan MD LAB - CHEMISTRY [place] Performing Organization Address City/[facility]/ZIP Co de Phone Number [address] [address], [place] [phone] * (ABNORMAL) IRON + TRANSFERRIN PANEL (10/12/2024 12:16 PM GYMNASTICS COACH OR INSTRUCTOR) Iron 18(L) 40 - 150 ug/dL 10/12/2024 12:56 PM [facility] Transferrin 266 174 - 382 mg/dL 10/12/2024 12:56 PM [facility] Transferrin Saturation % 5(L) 16 - 50 % 10/12/2024 12:56 PM [facility] TIBC Calculated 333 240 - 450 ug/dL 10/12/2024 12:56 PM [facility] Blood BLOOD SPECIMEN / Unknown Venipuncture / Unknown 10/12/2024 12:16 PM GYMNASTICS COACH OR INSTRUCTOR 10/12/2024 12:21 PM GYMNASTICS COACH OR INSTRUCTOR Yeyo Swan MD LAB - CHEMISTRY [place] [address] [address], [place] [phone] * FERRITIN (10/12/2024 12:16 PM GYMNASTICS COACH OR INSTRUCTOR) Ferritin 15 13 - 204 ng/mL 10/12/2024 1:12 PM [facility] Blood BLOOD SPECIMEN / Unknown Venipuncture / Unknown 10/12/2024 12:16 PM GYMNASTICS COACH OR INSTRUCTOR 10/12/2024 12:21 PM GYMNASTICS COACH OR INSTRUCTOR Yeyo Swan MD LAB - CHEMISTRY [place] [facility] [address] [place] [address], [facility] [phone] * HEPATITIS C RNA QUANTITATIVE (06/17/2022 1:48 PM CDT) [facility] Hepatitis C RNA PCR, Interp Not detected Not detected 06/21/2022 11:16 AM CDT [facility] Blood BLOOD SPECIMEN / Unknown Lab Venipuncture / Unknown 06/17/2022 1:48 PM CDT 06/17/2022 2:07 PM CDT Narrative [facility] - 06/21/2022 11:16 AM CDT The Hepatitis C viral (HCV) RNA analysis utilized a serum sample, real-time reverse globe mounter PCR, and is reported as Not Detected, Detected (<12 IU/mL), Quantity (IU/mL) or >30,000,000 IU/mL. The limit of quantitation of the assay is 12 IU/mL (100% of samples with this HCV RNA level were detected). The linear range is from 12 IU/mL to 30,000,000 IU/mL. Values less than 12 IU/mL are reported as Detected (<12 IU/mL). Values greater than 30,000,000 IU/mL are reported as >30,000,000 IU/mL. The detection/quantitation of HCV RNA in serum is based on the isolation of HCV RNA with reverse globe mounter of genomic HCV RNA followed by real-time PCR in the presence of an unrelated RNA internal control. The internal control ensures that RNA is isolated, and that no general significant inhibitors of the RT-PCR process are present. The analysis was performed using a [place] FDA approved test methodology. Yeyo Swan MD LAB - CHEMISTRY [place] [facility] [address] [place] [address], [facility] [phone] from Last 3 Months or Most Recently Relevant to Health Maintenance Care Teams Pulmonary Disease Specialist Relationship Specialty Start Date End Date Kenneth Rodriguez MD [address] [id number] PCP - General Internal Medicine 03/17/23
[2024-12-22 07:26] VITALS: BP 157/75; PULSE 84; RESP 16; TEMP 36.7; O2SAT 100
[2024-12-22 07:32] VITALS: O2SAT 100
--- NOTE | 2024-12-22 07:43 | ED_ITS ---
HPI - General Adult General Chief complaint: Chest Pain Stated complaint: L. sided CP x days Time Seen by Provider: 12/22/24 07:33 History of Present Illness HPI narrative: 44-year-old female history of hypertension presents to the emergency department complaining left-sided chest wall pain and tightness has been ongoing for the past 2 days. Patient states she had been taking [id number] medications for this but states that has not been and helping. Patient has had some intermittent lightheaded dizziness. Patient has been taking her medications for her blood pressure but states blood pressure does typically run high due to her diet. Patient does report a prior history of a stress test but denies any cardiac stents denies any HI. Patient denies any recent coughs colds fevers nausea vomiting diarrhea. Patient denies any recent illnesses. Patient denies any falls or injuries. Related Data Home Medications ?Medication ?Instructions ?Recorded ?Confirmed ?Last Taken ?Type albuterol 90 mcg/actuation aerosol 90 mcg inhalation PRN PRN 02/17/22 12/22/24 Unknown History inhaler difficulty breathing losartan 25 mg tablet 25 mg PO DAILY 02/17/22 12/22/24 Unknown History metoprolol tartrate 37.5 mg tablet 50 mg PO DAILY 02/17/22 12/22/24 Unknown History mometasone-formoterol HFA 50 mcg-5 2 puff inhalation Q12H 02/17/22 12/22/24 Unknown History mcg/actuation aerosol inhaler (Dulera) Allergies Allergy/AdvReac Type Severity Reaction Status Date / Time acetaminophen (From Vicodin) AdvReac Intermediate Other Verified 12/22/24 07:33 hydrocodone (From Vicodin) AdvReac Intermediate Other Verified 12/22/24 07:33 naproxen AdvReac Intermediate Other Verified 12/22/24 07:33 sulfamethoxazole (From AdvReac Nausea and Verified 12/22/24 07:33 Bactrim) Vomiting trimethoprim (From Bactrim) AdvReac Nausea and Verified 12/22/24 07:33 Vomiting Review of Systems 2 Review of Systems: All systems reviewed & are unremarkable except as noted in HPI and below PMFSH Past Medical History Medical History Asthma Hypertension Surgical History Surgical History H/O section Social History Social History Smoking status: Never smoker Alcohol intake: never Substance use: never Exam 2 Narrative: APPEARANCE: Well appearing, no pain, no distress, well-nourished. HEAD: normocephalic, atraumatic. EYES: PERRLA/EOMI, conjunctivae clear. NOSE: Normal no drainage EARS:TMS clear with good light reflex. THROAT: Pharynx clear, no exudate. NECK: Supple. No adenopathy, no masses. RESPIRATORY: Airway patent, respirations nonlabored. Clear to auscultation bilaterally, no rales, rhonchi, wheezing. CARDIOVASCULAR: Regular rate and rhythm without murmurs rubs or gallops. ABDOMINAL: Soft, nontender, nondistended, normal bowel sounds MUSCULOSKELETAL: Reproducible chest wall tenderness to palpation NEURO: Alert. Cranial nerves II through XII intact. Good gait. Good coordination SKIN: Warm, dry. Normal Color Course Vital Signs Vital signs: Vital Signs Temperature 98.0 F 12/22/24 07:26 Pulse Rate 84 12/22/24 07:26 Respiratory Rate 16 12/22/24 07:26 Blood Pressure 157/75 H 12/22/24 07:26 Pulse Oximetry 100 12/22/24 07:26 Oxygen Delivery Room Air 12/22/24 07:26 Temperature 98.0 F 12/22/24 07:26 Pulse Rate 77 12/22/24 11:42 Respiratory Rate 17 12/22/24 11:42 Blood Pressure 187/90 H 12/22/24 11:42 Pulse Oximetry 100 12/22/24 11:42 Oxygen Delivery Room Air 12/22/24 07:50 Medical Decision Making [facility] Narrative Medical decision making narrative: 44-year-old female present to the emergency department for evaluation for left- sided chest wall pain it has been ongoing for the last few days. Patient has no significant cardiac history. Patient is currently afebrile with no leukocytosis and hemoglobin 11.1 which is within the range of her baseline. INR is 0.9. Patient's D-dimer was elevated 0.53 CTA was ordered and showed no evidence of pulmonary embolism was concerning for a right lower lobe pneumonia. Patient had negative serial EKGs no acute abnormalities on her CMP. Patient will be started on antibiotics for suspected pneumonia. This may be the underlying etiology of her symptoms. With her symptoms being caused by a pleuritic chest pain. Patient was very reproducible to tenderness of the left-sided chest. Patient will be started on antibiotics in the emergency department. Differential Diagnosis Differential Diagnosis: COVID, RSV, influenza, pneumonia, pulmonary embolism, pneumothorax, pleurisy Vital Signs Vital Signs: Vital Signs Temperature 98.0 F 12/22/24 07:26 Pulse Rate 84 12/22/24 07:26 Respiratory Rate 16 12/22/24 07:26 Blood Pressure 157/75 H 12/22/24 07:26 Pulse Oximetry 100 12/22/24 07:26 Oxygen Delivery Room Air 12/22/24 07:26 Temperature 98.0 F 12/22/24 07:26 Pulse Rate 77 12/22/24 11:42 Respiratory Rate 17 12/22/24 11:42 Blood Pressure 187/90 H 12/22/24 11:42 Pulse Oximetry 100 12/22/24 11:42 Oxygen Delivery Room Air 12/22/24 07:50 Lab Data Lab results reviewed: Yes I reviewed the patient's lab results. 12/22/24 07:43 12/22/24 07:43 Labs: Lab Results 12/22/24 12/22/24 Range/Units 07:43 10:37 WBC 8.1 (4.5-10.0) K/mm3 RBC 4.61 (4.2-5.4) M/mm3 Hgb 11.1 L (12.0-15.0) g/dL Hct 36.9 L (37.0-47.0) % MCV 80.0 (80-100) fl MCH 24.1 L (26-34) pg MCHC 30.1 L (32-36) g/dl RDW 16.7 H (11.5-14.5) % Plt Count 359 (150-375) k/mm3 MPV 9.2 (7.4-10.4) fl Immature Gran % (Auto) 0.4 (0-0.5) % Neut % (Auto) 56.6 (45.5-73.1) % Lymph % (Auto) 33.3 (18.3-44.2) % [place] % (Auto) 6.9 (2.6-8.5) % Eos % (Auto) 2.6 (0-4.4) % Baso % (Auto) 0.2 (0.2-1.2) % Lymph # (Auto) 2.69 (0.9-3.2) K/mm3 [place] # (Auto) 0.6 (0.1-0.6) K/mm3 Eos # (Auto) 0.2 (0-0.3) K/mm3 Baso # (Auto) 0.0 (0.0-0.1) K/mm3 Abs Immat Gran (auto) 0.03 (0.00-0.031) K/mm3 Absolute Neuts (auto) 4.6 (1.3-6.7) K/mm3 Absolute Nucleated RBC 0.000 (0.0-0.012) K/mm3 Nucleated RBC % 0.0 (0.0-0.2) % PT 12.6 (11.1-14.7) Seconds INR 0.9 APTT 24.9 (22.3-36.8) Seconds D-Dimer 0.53 H (<0.48) ug/mL Sodium 138 (137-145) mmol/L Potassium 3.9 (3.4-5.0) mmol/L Chloride 105 (98-107) mmol/L Carbon Dioxide 25 (22-30) mmol/L Anion Gap 8 (4-12) mmol/L BUN 13 (7-17) mg/dL Creatinine 0.83 (0.7-1.0) mg/dL Estim Creat Clear Calc 87 ml/min Estimated GFR > 60 (59 - ) Glucose 154 H (65-110) mg/dL Calcium 8.9 (8.4-10.2) mg/dL Total Bilirubin 0.3 (0.2-1.3) mg/dL AST 25 (14-36) U/L ALT 22 (6-35) U/L Alkaline Phosphatase 61 (38-126) U/L Troponin I < 0.012 < 0.012 (0.000-0.034) ng/mL Total Protein 8.0 (6.3-8.2) g/dL Albumin 4.1 (3.5-5.1) g/dL Lipase 99 (23-300) U/L Imaging Data Radiologist's impression: Impressions Chest X-Ray 12/22/24 07:49 Impression: 1: No acute cardiopulmonary disease. Chest CTA 12/22/24 09:00 IMPRESSION: 1. Focal reticulonodular densities right lower lobe, suspicious for pneumonia. 2: No evidence for pulmonary embolism. 3: Borderline sized axillary lymph nodes, likely reactive. ECG Data EKG #1: EKG Interpretation: normal rate, sinus rhythm, non-specific ST changes, no ST changes, normal QRS and NL axis Discharge Plan Discharge Clinical Impression: Atypical chest pain, Pneumonia Patient Disposition: Home, Self-Care Condition: Stable Instructions: Antibiotic Form, Chest Pain (ED), Pleurisy (ED), Pneumonia (ED) Additional Instructions: Tylenol and ibuprofen for pain control. Antibiotics as directed until completed. Have close follow-up with her primary care physician for additional outpatient cardiac testing. If you have any worsening symptoms then please call or return to the emergency department. Patient Language: Japanese Prescriptions: New azithromycin 250 mg tablet See Rx Instructions .ROUTE .COMPLEX Qty: 6 0RF Rx Instructions: For 250 mg dose pack: take 500 mg today (day 1), then 250 mg for 4 days (days 2-5) amoxicillin-pot clavulanate 875-125 mg tablet 1 tablet PO Q12H 7 Days Qty: 14 0RF No Action losartan 25 mg Tablet 25 mg PO DAILY albuterol 90 mcg/actuation Aerosol 90 mcg INHALATION PRN PRN (Reason: difficulty breathing) metoprolol tartrate 37.5 mg Tablet 50 mg PO DAILY Dulera 50-5 mcg/actuation Hfa Aerosol Inhaler 2 puff INHALATION Q12H potassium chloride 20 mEq tablet extended release 20 meq PO DAILY Qty: 5 0RF Follow-up/Referrals: PHYSICIAN NOT ON STAFF,NONSTAFF [Primary Care Provider] - Quality HEART score for chest pain patients History: slightly suspicious ECG: normal Age: > 45 and < 65 years Risk factors: 1 or 2 risk factors Troponin: < or = to 1x normal limit Heart score: 2
[2024-12-22 07:49] LABS: Basophils Percent Auto 0.2 % (0.2-1.2); Eosinophils Absolute Auto 0.2 K/mm3 (0-0.3); Eosinophils Percent Auto 2.6 % (0-4.4); Hematocrit 36.9 % (37.0-47.0); Hemoglobin 11.1 g/dL (12.0-15.0); Immature Granulocyte Absolute 0.03 K/mm3 (0.00-0.031); Immature Granulocyte Percent A 0.4 % (0-0.5); Lymphocytes Absolute Auto 2.69 K/mm3 (0.9-3.2); Lymphocytes Percent Auto 33.3 % (18.3-44.2); Mean Corpuscular HGB Conc 30.1 g/dl (32-36); Mean Corpuscular Hemoglobin 24.1 pg (26-34); Mean Platelet Volume 9.2 fl (7.4-10.4); Monocytes Absolute Auto 0.6 K/mm3 (0.1-0.6); Monocytes Percent Auto 6.9 % (2.6-8.5); Neutrophils Absolute Auto 4.6 K/mm3 (1.3-6.7); Neutrophils Percent Auto 56.6 % (45.5-73.1); Platelet Count Result 359 k/mm3 (150-375); Red Blood Count 4.61 M/mm3 (4.2-5.4); Red Cell Distribution Width 16.7 % (11.5-14.5); White Blood Count 8.1 K/mm3 (4.5-10.0)
[2024-12-22 07:50] VITALS: O2SAT 100
[2024-12-22 08:00] LABS: INR 0.9; Prothrombin Time 12.6 Seconds (11.1-14.7)
--- OUTSIDE RECORDS SUMMARY | 2024-12-22 08:00 | XMS_ITS | Clinical Summary ---
Author Organization [facility] Address [address] [place] [address] Care Team Providers Care Devops Engineer Name Role Phone Kenneth Rodriguez MD Primary Care Provider [phone] Tj Mccarthy MD PhD Unavailable [phone] Allergies Active Allergy Reactions Criticality Noted [...] Department Care Team Description 11/13/2024 11:00 AM CHANNEL MAN Procedure visit [facility] [address] [place] [address] Abner Pollock MD Encounter for IUD insertion (Primary Dx) 11/08/2024 Telephone [facility] [address] [place] [address] [address] [place] [address] Abner Pollock MD 10/23/2024 Telephone [facility] [address] [place] [address] [address] [place] [phone] Abner Pollock MD 10/19/2024 9:00 AM CHANNEL MAN - 10/19/2024 11:59 PM CHANNEL MAN Hospital Encounter [facility] [address] [place] [address] Abnormal uterine bleeding (AUB); Abdominal pain Discharge Disposition: Discharge to home or self care 10/18/2024 Telephone [facility] [address] [place] [address] [address] [place] [address] Abner Pollock MD 10/16/2024 2:22 PM CHANNEL MAN - 10/16/2024 11:59 PM CHANNEL MAN Hospital Encounter [facility] [place] [address] [place] [address] Abnormal uterine bleeding (AUB) Discharge Disposition: Discharge to home or self care 10/02/2024 Telephone [facility] [address] [facility] [address] [place] [phone] Arlene Shannon MD r/s surgery from Last [...] on file Legal Sex Female 6:55 PM CHANNEL MAN Gender Identity Not on file Sexual Orientation Not on file Obstetrics History Para Term AB IAB SAB Ectopic Multiple Livin g Live Births 3 2 2 Date Outcome GA Total Labor Labor/2nd/3rd Weight Sex Type Anes PTL Kyleigh A1 A5 Name Clin Term Term Last Filed Vital Signs Vital Sign Reading Time Taken Comments Blood Pressure 154/82 11/13/2024 11:06 AM CHANNEL MAN Pulse 88 08/04/2021 10:59 AM CDT Temperature 36.6 C (97.8 F) 08/04/2021 10:59 AM CDT Respiratory Rate 18 08/04/2021 10:59 AM CDT Oxygen Saturation 100% 08/04/2021 10:59 AM CDT Inhaled Oxygen Concentration - - Weight 99.4 kg (219 lb 3.2 oz) 11/13/2024 11:06 AM CHANNEL MAN Height 162.6 cm (5' 4 ) 11/13/2024 11:06 AM CHANNEL MAN Body Mass Index 37.63 11/13/2024 11:06 AM CHANNEL MAN Plan of Treatment Health Maintenance Due Date [...] Read Routine (OP Routine) 10/19/2024 9:48 AM CHANNEL MAN Abnormal uterine bleeding (AUB) Abdominal pain US PELVIS W ENDOVAGINAL Schedule Routine, Read Routine (OP Routine) 10/16/2024 3:10 PM CHANNEL MAN Abnormal uterine bleeding (AUB) PAP AND HIGH RISK HPV, REFLEX TO GENOTYPING Routine 11/18/2023 10:14 AM CHANNEL MAN ASCUS of cervix with negative high risk HPV DIAGNOSTIC MAMMOGRAM BILATERAL W [place] Schedule Routine, Read Routine (OP Routine) 02/02/2022 10:54 AM CDT Other abnormal and inconclusive findings on diagnostic imaging of breast from Last 3 Months or Most Recently Relevant to Health Maintenance Results * XR Abdomen Supine and Erect (10/19/2024 9:48 AM CHANNEL MAN) Anatomical Region Laterality Modality Body, Abdomen N/A Computed Radiogr aphy 10/21/2024 9:33 PM CHANNEL MAN Narrative 10/21/2024 9:36 PM CHANNEL MAN EXAM DESCRIPTION: XR ABDOMEN SUPINE AND ERECT [...] Lane Pat M.D. HAL T: Report ID: [id number] Reading Location: [id number] Procedure Note Kalia Pat MD - 10/21/2024 [...] signed by Lane HONG T: Report ID: [id number] Reading Location: [place] [address] Abner Pollock MD IMG XR PROCEDURES Final Result * US Pelvis W Endovaginal (10/16/2024 3:10 PM CHANNEL MAN) Anatomical Region Laterality Modality Pelvis N/A Ultrasound 10/18/2024 6:41 AM CHANNEL MAN Narrative 10/18/2024 6:45 AM CHANNEL MAN EXAM DESCRIPTION: US PELVIS W ENDOVAGINAL REASON [...] Eliseo Harding M.D., CH T: Report ID: [id number] Reading Location: [place] [address] Procedure Note Eliseo Harding Jr., MD - [...] by Eliseo Harding M.D. T: Report ID: [id number] Reading Location: [id number] Abner Pollock MD IMG US PROCEDURES Final Result * Pap and High Risk HPV and Genotyping (Cytology Component) (11/18/2023 10:14 AM CHANNEL MAN) Thin prep (Pap test) 11/18/2023 10:14 AM CHANNEL MAN 11/21/2023 8:14 AM CHANNEL MAN Narrative PATHOLOGY [facility] - 11/28/2023 3:53 PM CHANNEL MAN EPIC results best viewed via link to PDF [facility] [place] [address] Note to Patients: This report may contain [...] Gender: F : 1980 (Age: 43) Address: [facility] [place] [address] [facility] #: [id number] Service: UNKNOWN Location: Patient Type: B SPECIMEN [...] this test have been verified by the [facility] Molecular Infectious Disease laboratory. Correlate with reported cytology results, as applicable. Interpretive data last revised 23 This specimen has been rescreened in accordance with this laboratory's Donation Worker Program. [facility]/11/28/2023 15:53 Felecia Lawson MS, CT (ASCP) Report Electronically Reviewed and Signed Out By ANGÉLICA Vasquez(ASCP), [facility] 11/28/2023 15:53:46 Cervicovaginal Cytology (Pap Test) Disclaimer: The Pap test is a screening test used to detect cervical cancer and its precursors; it is not a diagnostic procedure. False negative and false positive results do occur. Pap test results should be interpreted in the context of pertinent clinical information and biopsy results as indicated. [facility] Clinical Laboratory Improvement Amendments (CLIA) mandate that cytologic and histologic results be correlated for laboratory water quality control engineer & improvement standards. FOR ALL HIGH-GRADE [...] determined by the Surgical Pathology Department at [facility] as part of an ongoing it quality analyst program and in compliance with federally mandated [...] determined by the Surgical Pathology Department of [facility]. It has not been cleared or approved by the U. S. Food and Drug Administration. Abner Pollock MD LAB CYTOLOGY ORDERABLES Final Result PATHOLOGY [facility] * Diagnostic Mammogram Bilateral W [place] [...] Most Recently Relevant to Health Maintenance Insurance [facility] Care Teams Devops Engineer Relationship Specialty Start Date End Date Kenneth Rodriguez MD [address] [place] [id number] PCP - General Internal Medicine 07/27/21 Tj Mccarthy MD PhD [address] [place] [address] Medical Oncologist/Auto Body Service Mechanic Medical Oncology 07/27/21
--- OUTSIDE RECORDS SUMMARY | 2024-12-22 08:00 | XMS_ITS | CONTINUITY OF CARE DOCUMENT ---
Author Name demetra mccrary Address Unknown Organization [facility] Address [address] [place] [address] Phone [phone] Care Team Providers Care Internet Merchant Name Role Phone Ceasar Aquino MD Unavailable [phone] Ceasar Aquino MD Unavailable [phone] INSURANCE PROVIDERS Payer name Policy type / Coverage type [place] [employer] [place] [employer] Medicaid [id number]
--- OUTSIDE RECORDS SUMMARY | 2024-12-22 08:00 | XMS_ITS | Clinical Summary ---
Author Organization [facility] Address [facility] [place] [address] Care Team Providers Care Head Counselor Name Role Phone Kenneth Rodriguez MD Primary Care Provider [phone] Allergies Active Allergy Reactions Criticality Noted Date [...] Department Care Team Description 10/25/2024 10:37 PM PRINCIPAL SOFTWARE ARCHITECT - 10/26/2024 1:50 AM PRINCIPAL SOFTWARE ARCHITECT Emergency [facility] [place] [address] Shahana Li PA Headache Discharge Disposition: Home [...] Comments Blood Pressure 163/98 10/26/2024 12:31 AM PRINCIPAL SOFTWARE ARCHITECT Pulse 74 10/26/2024 12:31 AM PRINCIPAL SOFTWARE ARCHITECT Temperature 36.5 C (97.7 F) 10/25/2024 10:22 PM PRINCIPAL SOFTWARE ARCHITECT Respiratory Rate 18 10/26/2024 12:31 AM PRINCIPAL SOFTWARE ARCHITECT Oxygen Saturation 100% 10/26/2024 12:31 AM PRINCIPAL SOFTWARE ARCHITECT Inhaled Oxygen Concentration - - Weight 103.4 kg (228 lb) 10/25/2024 10:22 PM PRINCIPAL SOFTWARE ARCHITECT Height 165.1 cm (5' 5 ) 10/25/2024 10:22 PM PRINCIPAL SOFTWARE ARCHITECT Body Mass Index 37.94 10/25/2024 10:22 PM PRINCIPAL SOFTWARE ARCHITECT Plan of Treatment Upcoming Encounters Date Type Department Care Team (Late st Contact Info) Description 01/17/2025 8:00 AM CDT Appointment [facility] [place] [phone] Russell Murillo MD [address] [phone] 01/17/2025 9:00 AM CDT Appointment [facility] [place], [place] [phone] Russell Murillo MD [address] [phone] Health Maintenance Due Date Last Done Comments [...] Comments TSH W/REFLEX STAT 10/26/2024 12:28 AM PRINCIPAL SOFTWARE ARCHITECT MAGNESIUM STAT 10/26/2024 12:28 AM PRINCIPAL SOFTWARE ARCHITECT TROPONIN, QUANT STAT 10/26/2024 12:28 AM PRINCIPAL SOFTWARE ARCHITECT COMPREHENSIVE METABOLIC PANEL STAT 10/26/2024 12:28 AM PRINCIPAL SOFTWARE ARCHITECT CBC W/DIFF AUTOMATED STAT 10/26/2024 12:28 AM PRINCIPAL SOFTWARE ARCHITECT ECG 12-LEAD Routine 10/25/2024 10:48 PM PRINCIPAL SOFTWARE ARCHITECT MG DIAG W XAVIER RT DIGI Routine 4 7:08 AM CDT Abnormal mammogram from Last 3 Months or Most Recently Relevant to Health Maintenance Results * TSH W/REFLEX (10/26/2024 12:28 AM PRINCIPAL SOFTWARE ARCHITECT) TSH 2.740 0.358 - 3.74 uIU/ML 10/26/2024 1:31 AM PRINCIPAL SOFTWARE ARCHITECT [facility] Comment: HIGH DOSES OF BIOTIN MAY INTERFERE WITH THIS TEST RESULT. CORRELATION TO CLINICAL HISTORY AND PRESENTATION RECOMMENDED. FREE T4 NOT INDICATED 10/26/2024 12:2 8 AM PRINCIPAL SOFTWARE ARCHITECT us [facility] Final Result [facility] [address] [place] [address], [place] [phone] * (ABNORMAL) COMPREHENSIVE METABOLIC PANEL (10/26/2024 12:28 AM [facility] GLUCOSE 154(H) 70 - 99 MG/DL 10/26/2024 1:31 AM [facility] BUN 10 7 - 18 MG/DL 10/26/2024 1:31 AM [facility] CREATININE S/P/B 0.90 0.55 - 1.02 MG/DL 10/26/2024 1:31 AM [facility] SODIUM S/P/B 135(L) 136 - 145 MMOL/L 10/26/2024 1:31 AM [facility] POTASSIUM S/P/B 3.3(L) 3.5 - 5.1 MMOL/L 10/26/2024 1:31 AM [facility] CHLORIDE S/P/B 100 97 - 115 MMOL/L 10/26/2024 1:31 AM [facility] CO2 26.6 21 - 32 MMOL/L 10/26/2024 1:31 AM [facility] CALCIUM S/P/B 8.9 8.5 - 10.1 MG/DL 10/26/2024 1:31 AM [facility] BILIRUBIN TOTAL S/P/B 0.4 0.2 - 1.2 MG/DL 10/26/2024 1:31 AM [facility] Comment: THIS ASSAY IS NOT RECOMMENDED FOR PATIENTS UNDERGOING TREATMENT WITH ELTROMBOPAG DUE TO THE POTENTIAL FOR FALSELY ELEVATED RESULTS. TOTAL PROTEIN S/P/B 7.6 6.4 - 8.2 G/DL 10/26/2024 1:31 AM [facility] ALBUMIN S/P/B 3.4 3.4 - 5.0 G/DL 10/26/2024 1:31 AM [facility] AST 28 15 - 37 U/L 10/26/2024 1:31 AM [facility] ALT 35 14 - 55 U/L 10/26/2024 1:31 AM [facility] ALKALINE PHOSPHATASE S/P/B 74 50 - 136 U/L 10/26/2024 1:31 AM [facility] ANION GAP 8.4 2 - 10 MMOL/L 10/26/2024 1:31 AM [facility] BUN CREATININE RATIO 11.1 6 - 26 10/26/2024 1:31 AM [facility] A/G RATIO 0.8(L) 1.0 - 2.0 RATIO 10/26/2024 1:31 AM [facility] GFR ESTIMATE 80(L) >90 ML/MIN/1.7 3 M2 10/26/2024 1:31 AM [facility] Comment: NOTE: eGFR is not calculated for patients <18 years of age or gender unknown. This is an estimated GFR calculation using the new CKD EPI creatinine equation without race and so does not require a correction factor for race. This estimated GFR should not be used for calculating drug doses. 10/26/2024 12:2 8 AM PRINCIPAL SOFTWARE ARCHITECT [facility] Final Result [facility] [address] [place] [address], * (ABNORMAL) CBC W/DIFF AUTOMATED (10/26/2024 12:28 AM PRINCIPAL SOFTWARE ARCHITECT) WBC 11.17(H) 4.5 - 11.0 x10'3/uL 10/26/2024 1:05 AM [facility] RBC 4.00(L) 4.20 - 5.40 x10'6/uL 10/26/2024 1:05 AM [facility] HGB 10.5(L) 12.0 - 16.0 G/DL 10/26/2024 1:05 AM [facility] HCT 33.1(L) 38.0 - 48.0 % 10/26/2024 1:05 AM [facility] MCV 82.8 81.0 - 99.0 FL 10/26/2024 1:05 AM [facility] MCH 26.3(L) 27.0 - 31.0 PG 10/26/2024 1:05 AM [facility] MCHC 31.7(L) 32.0 - 36.0 G/DL 10/26/2024 1:05 AM [facility] RDW 12.3 11.5 - 14.5 % 10/26/2024 1:05 AM [facility] PLT 491(H) 130 - 400 x10'3/uL 10/26/2024 1:05 AM [facility] MPV 9.4 9.3 - 12.2 FL 10/26/2024 1:05 AM [facility] DIFFERENTIAL TYPE AUTOMATED DIFFERENTIAL 10/26/2024 1:05 AM [facility] NEUTROPHILS % 52.6 % 10/26/2024 1:05 AM [facility] LYMPHOCYTES % 37.8 % 10/26/2024 1:05 AM [facility] MONOCYTES % 7.5 % 10/26/2024 1:05 AM [facility] EOSINOPHILS 1.4 % 10/26/2024 1:05 AM [facility] BASOPHILS 0.4 % 10/26/2024 1:05 AM [facility] IMMATURE GRANS % 0.3 % 10/26/19 1:05 AM [facility] ABS. NEUTROPHILS 5.88 1.80 - 7.70 x10'3/uL 10/26/2024 1:05 AM [facility] ABS. LYMPHOCYTES 4.22 1.00 - 4.80 x10'3/uL 10/26/2024 1:05 AM [facility] ABS. MONOCYTES 0.84 0.24 - 0.86 x10'3/uL 10/26/2024 1:05 AM [facility] ABS. EOSINOPHILS 0.16 0.04 - 0.36 x10'3/uL 10/26/2024 1:05 AM [facility] ABS. BASOPHILS 0.04 0.01 - 0.08 x10'3/uL 10/26/2024 1:05 AM [facility] ABS. IMMATURE GRANULOCYTES 0.03 0.00 - 0.49 x10'3/uL 10/26/2024 1:05 AM [facility] 10/26/2024 12:2 8 AM PRINCIPAL SOFTWARE ARCHITECT us [facility] Final Result [facility] [address] [place] [address], [place] [phone] * TROPONIN, QUANT (10/26/2024 12:28 AM PRINCIPAL SOFTWARE ARCHITECT) TROPONIN I HIGH SENSITIVITY 11 <54 ng/L 10/26/2024 1:31 AM PRINCIPAL SOFTWARE ARCHITECT [facility] Comment: HIGH DOSES OF BIOTIN, TROPONIN-SPECIFIC AUTOANTIBODIES, AND ANTIBODY THERAPY CONTAINING HAMA MAY INTERFERE WITH THIS TEST RESULT. CORRELATION TO CLINICAL HISTORY AND PRESENTATION RECOMMENDED. 10/26/2024 12:2 8 AM PRINCIPAL SOFTWARE ARCHITECT us [facility] Final Result [facility] [address] [place] [address], * MAGNESIUM (10/26/2024 12:28 AM PRINCIPAL SOFTWARE ARCHITECT) MAGNESIUM 2.3 1.8 - 2.4 MG/DL 10/26/2024 1:31 AM PRINCIPAL SOFTWARE ARCHITECT [facility] 10/26/2024 12:2 8 AM PRINCIPAL SOFTWARE ARCHITECT [facility] Final Result Performing Organization Address City/[facility] Co de Phone Number 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: : 1980 Requested By: SHAHANA LI Order Number: [id number] Reading MD: Arie Sykes Measurements Intervals Burt Rate: 90 P: 65 TN: 138 QRS: 21 QRSD: 85 T: 53 QT: 366 QTc: 448 Interpretive Statements SINUS RHYTHM Compared to ECG 01/06/2023 19:53:14 No significant changes No ischemic changes CIPAL SOFTWARE ARCHITECT Procedure Note Arie Sykes MD - 10/26/[address] Test Date: 2024-10-25 Pat Name: CAROLYN HAMPTON Department: 41 Room: Gender: Female Wool Hat Flanger: : 1980 Requested By: SHAHANA LI Order Number: [id number] Reading MD: Arie Sykes Measurements Intervals Burt Rate: 90 P: 65 TN: 138 QRS: 21 QRSD: 85 T: 53 QT: 366 QTc: 448 Interpretive Statements SINUS RHYTHM Compared to ECG 01/06/2023 19:53:14 No significant changes No ischemic changes CIPAL SOFTWARE ARCHITECT us Shahana BROWNE ECG ORDERABLES Final Result [facility] RAD * MG DIAG W XAVIER [...] 7:47 AM Narrative 07/16/2024 7:52 AM CDT [facility] [address] [place] [address] Examination: Unilateral right diagnostic mammogram and ultrasound [id number] Exam Date/Time: 07/16/2024 6:55 AM Reason For [...] Most Recently Relevant to Health Maintenance Insurance [facility] Advance Directives * Full Code (Latest Code Status on File) Date Activated Date Inactivated Comments 12/17/2018 6:43 PM 12/18/2018 7:22 PM Care Teams Head Counselor Relationship Specialty Start Date End Date Kenneth Rodriguez MD [address] [address] PCP - General 04/19/15
--- OUTSIDE RECORDS SUMMARY | 2024-12-22 08:00 | XMS_ITS | Referral Summary ---
Author Organization [facility] Address [address] [place] [phone] Care Team Providers Care Electrical Troubleshooter Name Role Phone Kenneth Rodriguez MD Primary Care Provider [phone] Tj Mccarthy MD PhD Unavailable Encounters Date Type Department Care Team Description 11/13/2024 11:00 AM TREATMENT SUPERVISOR Procedure visit [facility] Medical [facility] Obstetrical Gynecology [address] [facility] [address] [place] [phone] Abner Pollock MD Encounter for IUD insertion (Primary Dx) 11/08/2024 Telephone [facility]ne[facility] [address] [place] [address] [place] [phone] Abner Pollock MD 10/23/2024 Telephone [facility] [address] [facility] [address] [place] [phone] Abner Pollock MD 10/19/2024 9:00 AM TREATMENT SUPERVISOR - 10/19/2024 11:59 PM TREATMENT SUPERVISOR Hospital Encounter [facility] Diagnostic Imaging [address] [place] [address] Abnormal uterine bleeding (AUB); Abdominal pain Discharge Disposition: Discharge to home or self care 10/18/2024 Telephone [facility]ne[facility] [address] [place] [address] [address] [place] [phone] Abner Pollock MD 10/16/2024 2:22 PM TREATMENT SUPERVISOR - 10/16/2024 11:59 PM TREATMENT SUPERVISOR Hospital Encounter [facility] [address] [place] [address] Abnormal uterine bleeding (AUB) Discharge Disposition: Discharge to home or self care 10/02/2024 Telephone [facility] Medical Group Hand Surgery [address] [facility] [address] [place] [phone] Arlene Shannon MD r/s surgery [...] on file Legal Sex Female 6:55 PM TREATMENT SUPERVISOR Gender Identity Not on file Sexual Orientation Not on file Last Filed Vital Signs Vital Sign Reading Time Taken Comments Blood Pressure 154/82 11/13/2024 11:06 AM TREATMENT SUPERVISOR Pulse 88 08/04/2021 10:59 AM CDT Temperature 36.6 C (97.8 F) 08/04/2021 10:59 AM CDT Respiratory Rate 18 08/04/2021 10:59 AM CDT Oxygen Saturation 100% 08/04/2021 10:59 AM CDT Inhaled Oxygen Concentration - - Weight 99.4 kg (219 lb 3.2 oz) 11/13/2024 11:06 AM TREATMENT SUPERVISOR Height 162.6 cm (5' 4 ) 11/13/2024 11:06 AM TREATMENT SUPERVISOR Body Mass Index 37.63 11/13/2024 11:06 AM TREATMENT SUPERVISOR Plan of Treatment Not on file Procedures Procedure Name Priority Date/Time Associated Diagnosis Comments XR ABDOMEN SUPINE AND ERECT Schedule Routine, Read Routine (OP Routine) 10/19/2024 9:48 AM TREATMENT SUPERVISOR Abnormal uterine bleeding (AUB) Abdominal pain US PELVIS W ENDOVAGINAL Schedule Routine, Read Routine (OP Routine) 10/16/2024 3:10 PM TREATMENT SUPERVISOR Abnormal uterine bleeding (AUB) PAP AND HIGH RISK HPV, REFLEX TO GENOTYPING Routine 11/18/2023 10:14 AM TREATMENT SUPERVISOR ASCUS of cervix with negative high risk HPV DIAGNOSTIC MAMMOGRAM BILATERAL W [place] Schedule Routine, Read Routine (OP Routine) 02/02/2022 10:54 AM CDT Other abnormal and inconclusive findings on diagnostic imaging of breast from Last 3 Months or Most Recently Relevant to Health Maintenance Results * XR Abdomen Supine and Erect (10/19/2024 9:48 AM TREATMENT SUPERVISOR) Anatomical Region Laterality Modality Body, Abdomen N/A Computed Radiogr aphy 10/21/2024 9:33 PM TREATMENT SUPERVISOR Narrative 10/21/2024 9:36 PM TREATMENT SUPERVISOR EXAM DESCRIPTION: XR ABDOMEN SUPINE AND ERECT [...] signed by Lane HONG T: Report ID: [id number] Reading Location: [id number] Procedure Note Kalia Pat MD - 10/21/2024 [...] Lane Pat M.D. HAL T: Report ID: [id number] Reading Location: [id number] Abner Pollock MD IMG XR PROCEDURES Final Result * US Pelvis W Endovaginal (10/16/2024 3:10 PM TREATMENT SUPERVISOR) Anatomical Region Laterality Modality Pelvis N/A Ultrasound 10/18/2024 6:41 AM TREATMENT SUPERVISOR Narrative 10/18/2024 6:45 AM TREATMENT SUPERVISOR EXAM DESCRIPTION: US PELVIS W ENDOVAGINAL REASON [...] 6:45 AM - Electronically signed by Eliseo aHrding M.D. T: Report ID: [id number] Reading Location: [id number] Procedure Note Eliseo Harding Jr., MD - [...] by Eliseo Harding M.D. T: Report ID: [id number] Reading Location: [id number] Abner Pollock MD [facility] PROCEDURES Final Result * Pap and High Risk HPV and Genotyping (Cytology Component) (11/18/2023 10:14 AM TREATMENT SUPERVISOR) Thin prep (Pap test) 11/18/2023 10:14 AM TREATMENT SUPERVISOR 11/21/2023 8:14 AM TREATMENT SUPERVISOR Narrative PATHOLOGY [facility] - 11/28/2023 3:53 PM TREATMENT SUPERVISOR EPIC results best viewed via link to PDF [facility] [place] [address] Note to Patients: This report may contain [...] Gender: F : 1980 (Age: 43) Address: [address] [place] [phone] Hospital #: [id number] Service: UNKNOWN Location: Patient Type: [facility] SPECIMEN Taken: 11/18/2023 Received: 11/21/2023 Accessioned: 11/22/2023 [...] this test have been verified by the [facility] Molecular Infectious Disease laboratory. Correlate with reported cytology results, as applicable. Interpretive data last revised 23 This specimen has been rescreened in accordance with this laboratory's [facility] Program. jxh/11/28/2023 15:53 Felecia Lawson MS, CT (ASCP) Report Electronically Reviewed and Signed Out By ANGÉLICA Vasquez(ASCP), [facility] 11/28/2023 15:53:46 Cervicovaginal Cytology (Pap Test) Disclaimer: The Pap test is a screening test used to detect cervical cancer and its precursors; it is not a diagnostic procedure. False negative and false positive results do occur. Pap test results should be interpreted in the context of pertinent clinical information and biopsy results as indicated. [facility] Clinical Laboratory Improvement Amendments (CLIA) mandate that cytologic and histologic results be correlated for laboratory software quality analyst & improvement standards. FOR ALL [...] determined by the Surgical Pathology Department at [facility] as part of an ongoing billing and quality technician program and in compliance with federally mandated [...] determined by the Surgical Pathology Department of [facility]. It has not been cleared or approved by the [place]. [place]. Food and Drug Administration. Abner Pollock MD LAB CYTOLOGY ORDERABLES Final Result PATHOLOGY [facility] * Diagnostic Mammogram Bilateral [place] (02/02/2022 [...] Most Recently Relevant to Health Maintenance Insurance [facility] Care Teams Electrical Troubleshooter Relationship Specialty Start Date End Date Kenneth Rodriguez MD [address] [place] [id number] PCP - General Internal Medicine 07/27/21 Tj Mccarthy MD PhD [address] [place] [phone] Medical Oncologist/Robotics Testing Technician Medical Oncology 07/27/21
--- OUTSIDE RECORDS SUMMARY | 2024-12-22 08:00 | XMS_ITS | Clinical Summary ---
Author Organization [facility] Address [address] [facility] [facility] [place] [address] Care Team Providers Care Generation Engineer Name Role Phone Kenneth Rodriguez MD Primary Care Provider [phone] Source Comments [facility],non-owned Affiliates and Associated Physician Practices is amultiple site organization consisting of ambulatory clinics and hospital sitesin [place], [place], [place] and [place]. This disclosure is being madepursuant to the Care Everywhere program and may not contain all information available regarding this patient. Last updated 18.[facility] mygola Allergies Active Allergy Reactions Criticality Noted Date [...] Type Department Care Team Description 12/03/2024 Telephone [facility] CL[facility]IC [address] [place] [address] Nora Garcia RN 11/23/2024 11:00 AM TRAFFIC ENGINEERING DIRECTOR - 11/23/2024 11:59 PM TRAFFIC ENGINEERING DIRECTOR Hospital Encounter [facility] BMT [address] [address] Mary Ann Ann MD Kunwor, Ranju, MD Discharge Disposition: Home or Self Care 11/23/2024 Travel 11/16/2024 Telephone [facility] BMT [address] [address] Nora Garcia RN 11/09/2024 Telephone [facility] [address] [place] [address] Renetta Casas RN 11/02/2024 Telephone [facility] [address] [place] [address] Renetta Casas, RN 10/30/2024 8:00 AM TRAFFIC ENGINEERING DIRECTOR Anesthesia Event [facility] ENDOSCOPY [address] [place] [address] Jesus Lee MD 10/30/2024 7:55 AM TRAFFIC ENGINEERING DIRECTOR - 10/30/2024 8:45 AM TRAFFIC ENGINEERING DIRECTOR Surgery [facility] ENDOSCOPY [address] [place] [address] Leo Mena MD EGD 10/30/2024 6:47 AM TRAFFIC ENGINEERING DIRECTOR - 10/30/2024 9:36 AM TRAFFIC ENGINEERING DIRECTOR Hospital Encounter [facility] CHUCK OP [address] [place] [address] Leo Mena MD Surgery General Discharge Disposition: Home or Self Care 10/30/2024 Travel 10/26/2024 2:41 PM TRAFFIC ENGINEERING DIRECTOR - 10/26/2024 11:59 PM TRAFFIC ENGINEERING DIRECTOR Hospital Encounter [facility] CL[facility]IC [address] [place] [phone] Mary Ann Ann MD Kunwor, Ranju, MD Discharge Disposition: Home or Self Care 10/26/2024 Travel 10/22/2024 Patient Outreach [facility] ENDOSCOPY [address] [place] [phone] Aurelia Tang, LEANNA Pre-op Instructions 10/19/2024 Telephone [facility] B[facility] CLINIC [address] [place] [address] Nora Garcia, LEANNA 10/19/2024 Telephone [facility] CL[facility] [address] [place] [address] Nora Garcia, LEANNA 10/12/2024 12:02 PM TRAFFIC ENGINEERING DIRECTOR - 10/12/2024 11:59 PM TRAFFIC ENGINEERING DIRECTOR Hospital Encounter [facility] CL[facility]IC [address] [place] [address] Yeyo Swan MD Discharge Disposition: Home or Self Care 10/12/2024 Orders Only [facility] ENDOSCOPY [address] [place] [phone] Donny Fernández RN 10/12/2024 Orders Only [facility] CL[facility]IC [address] [place] [address] Nora Garcia, LEANNA Iron deficiency anemia due to chronic blood loss 10/12/2024 Travel 10/11/2024 Orders Only [facility] - Hematology/Oncology [address] [place] [address] [place] [phone] Yeyo Swan MD Iron deficiency anemia due to chronic blood loss 10/11/2024 Telephone [facility] CL[facility]IC [address] [place] [address] Katie Summers from Last 3 Months Family [...] Comments Blood Pressure 151/74 11/23/2024 11:20 AM TRAFFIC ENGINEERING DIRECTOR Pulse 88 11/23/2024 11:20 AM TRAFFIC ENGINEERING DIRECTOR Temperature 37.3 C (99.1 F) 11/23/2024 11:20 AM TRAFFIC ENGINEERING DIRECTOR Respiratory Rate 18 11/23/2024 11:2 0 AM TRAFFIC ENGINEERING DIRECTOR Oxygen Saturation 100% 11/23/2024 11: 20 AM TRAFFIC ENGINEERING DIRECTOR Inhaled Oxygen Concentration - - Weight 101.9 kg (224 lb 9.6 oz) 025 11:20 AM TRAFFIC ENGINEERING DIRECTOR Height 165.1 cm (5' 5 ) 10/30/2024 7:18 AM TRAFFIC ENGINEERING DIRECTOR Body Mass Index 37.38 10/30/2024 7:18 AM TRAFFIC ENGINEERING DIRECTOR Plan of Treatment Upcoming Encounters Date Type Department Care Team (Late st Contact Info) Description 04/12/2025 11:40 AM CDT Appointment [facility] B[facility] CLINIC [address] [place] [address] Yeyo Swan MD [address] [place] [phone] Health Maintenance Due Date Last Done Comments [...] Comments IGA BLOOD Routine 10/30/2024 9:21 AM TRAFFIC ENGINEERING DIRECTOR Iron deficiency anemia due to chronic blood loss TISSUE TRANSGLUTAMINASE AB IGA AM Draw 10/30/2024 9:21 AM TRAFFIC ENGINEERING DIRECTOR Iron deficiency anemia due to chronic blood loss ENDOSCOPY, COLON, SCREENING Routine 10/30/2024 8:14 AM TRAFFIC ENGINEERING DIRECTOR PATHOLOGY TISSUE Routine 10/30/2024 8:08 AM TRAFFIC ENGINEERING DIRECTOR Iron deficiency anemia, unspecified iron deficiency anemia type [facility] COLOREC CANC SCRN,SCOPY NOT HI RISK 10/30/2024 7:55 AM TRAFFIC ENGINEERING DIRECTOR Iron deficiency anemia, unspecified iron deficiency anemia type Special Needs EGD and colonoscopy Received: Today Renetta Casas RN Johnson, Sarah N., LEANNA Garcia, can you please schedule this patient for EGD and colonoscopy sometime in the next month? Thanks. Renetta Casas RN, BSN, BMT-CN BMT Coordinator for Dr. Yeyo Swan [facility] [phone] Received Date Received Time Oct 12, 2024 1:51 PM [facility] EGD FLEX TRANSORAL DX 10/30/2024 7:55 AM TRAFFIC ENGINEERING DIRECTOR Iron deficiency anemia, unspecified iron deficiency anemia type Special Needs EGD and colonoscopy Received: Today Renetta Casas RN Johnson, Sarah N., RN Radha, can you please schedule this patient for EGD and colonoscopy sometime in the next month? Thanks. Renetta Casas RN, BSN, BMT-CN BMT Coordinator for Dr. Yeyo Swan [facility] [phone] Received Date Received Time Oct 12, 2024 1:51 PM GLUCOSE - POINT OF CARE Routine 10/30/2024 7:45 AM TRAFFIC ENGINEERING DIRECTOR EGD Routine 10/30/2024 7:33 AM TRAFFIC ENGINEERING DIRECTOR HCG URINE QUALITATIVE - POCT (IP) INTERFACED Routine 10/30/2024 7:32 AM TRAFFIC ENGINEERING DIRECTOR HCG URINE QUAL POCT NOTIFICATION STAT 10/30/2024 7:27 AM TRAFFIC ENGINEERING DIRECTOR Essential hypertension SOLUBLE TRANSFERRIN RECEPTOR STAT 10/12/2024 12:16 PM TRAFFIC ENGINEERING DIRECTOR Iron deficiency anemia due to chronic blood loss IRON + TRANSFERRIN PANEL STAT 10/12/2024 12:16 PM TRAFFIC ENGINEERING DIRECTOR Iron deficiency anemia due to chronic blood loss FERRITIN CARMELINA 10/12/2024 12:16 PM TRAFFIC ENGINEERING DIRECTOR Iron deficiency anemia due to chronic blood loss CBC W AUTO DIFFERENTIAL STAT 10/12/2024 12:16 PM TRAFFIC ENGINEERING DIRECTOR Iron deficiency anemia due to chronic blood loss COMPREHENSIVE METABOLIC PANEL STAT 10/12/2024 12:16 PM TRAFFIC ENGINEERING DIRECTOR Iron deficiency anemia due to chronic blood loss HEPATITIS C RNA QUANTITATIVE STAT 06/17/2022 1:48 PM CDT Anemia, unspecified type from Last 3 Months or Most Recently Relevant to Health Maintenance Results * TISSUE TRANSGLUTAMINASE AB IGA (10/30/2024 9:21 AM TRAFFIC ENGINEERING DIRECTOR) Tissue Transglutaminase (tTG) Ab, IgA 2.34 0.00 - 4.99 FLU 11/01/2024 4:09 AM TRAFFIC ENGINEERING DIRECTOR [facility] ([facility]) Comment: INTERPRETIVE INFORMATION: Tissue Transglutaminase (tTG) Antibody, [...] indicate a response to therapy. Performed By: [facility] [address] [place] [id number] Certified Nurse Practitioner: Charles Verma MD, PhD CLIA Number: [id number] Blood BLOOD SPECIMEN / Unknown Venipuncture / Unknown 10/30/2024 9:21 AM TRAFFIC ENGINEERING DIRECTOR 10/30/2024 9:25 AM TRAFFIC ENGINEERING DIRECTOR Leo Rubio MD LAB - SERO LOGY ORDERABLES [facility] ([facility]) [address] * (ABNORMAL) IGA BLOOD (10/30/2024 9:21 AM TRAFFIC ENGINEERING DIRECTOR) IgA 747(H) 61 - 356 mg/dL 10/30/2024 10:03 AM TRAFFIC ENGINEERING DIRECTOR [facility] Comment:Result obtained by jelena burroughs. Blood BLOOD SPECIMEN / Unknown Venipuncture / Unknown 10/30/2024 9:21 AM TRAFFIC ENGINEERING DIRECTOR 10/30/2024 9:25 AM TRAFFIC ENGINEERING DIRECTOR Leo Rubio MD LAB - CHEM ISTRY ORDERABLES [facility] [address] [place] [address], [facility] [phone] * Endoscopy, Colon, Screening (10/30/2024 8:14 AM TRAFFIC ENGINEERING DIRECTOR) Report Endoscopy POC Endoscopy Department Report _ [...] entire procedure. Procedure Code(s): --- Professional --- 49137, Colonoscopy, flexible; diagnostic, including collection of specimen(s) by brushing or washing, when performed (separate procedure) Diagnosis Code(s): --- Professional --- Z12.11, Encounter for screening for malignant neoplasm of colon CPT copyright 2021 [employer] [place] [employer]. All rights reserved. The codes documented in this report are preliminary and upon supervisor sulfuric acid plant review may be revised to meet current compliance requirements. Leo Xavier MD 10/30/2024 8:53:54 AM This report has been signed electronically. Note Initiated On: 10/30/2024 8:14 AM Number of Addenda: [address] [address] [facility] 10/30/2024 8:14 AM TRAFFIC ENGINEERING DIRECTOR Leo Rubio MD GI PROCEDU RE ORDERABLES [facility] * PATHOLOGY TISSUE (10/30/2024 8:08 AM TRAFFIC ENGINEERING DIRECTOR) Case Report Surgical Pathology Report Case: [id number] Authorizing Provider: Leo Rubio Collected: 10/30/2024 08:08 AM MD Beronica Ordering Location: [facility] ENDOSCOPY Received: 10/30/2024 09:51 AM Pathologist: Raquel Martinez MD Specimen: Duodenal Biopsy, duodenal bx - iron deficiency, r/o celiac disease 10/31/2024 1:19 PM [facility] Final Diagnosis Small intestine, duodenum, biopsy (A): - No histopathologic abnormality - Intact villous and crypt architecture without increased intraepithelial lymphocytes 10/31/2024 1:19 PM [facility] Microscopic Description and Comment Microscopic examination substantiates the final diagnosis. 10/31/2024 1:19 PM [facility] Clinical History The patient is a 43 year old woman with iron deficiency anemia. Operative procedure/findings: EGD - normal duodenum, biopsied to rule out celiac disease. 10/31/2024 1:19 PM [facility] Gross Description The requisition and specimen(s) are identified with the patient's name, Carolyn Hampton. Received in formalin, specimen A , are multiple thornton-white, friable and flocculent soft tissue fragments, ranging from 0.1 to 0.3 cm and measuring 0.7 x 0.5 x 0.1 cm in aggregate, submitted in toto as cassette A1. AL 10/31/2024 1:19 PM [facility] Pathologist Location at [facility] 10/31/2024 1:19 PM [facility] Disclaimer The performance characteristics of all immunohistochemical and indirect immunofluorescence stains (if any) cited in this report were determined by the Histopathology Laboratory of [facility]. Some of these tests were developed [...] the attending (teaching) pathologist. 10/31/2024 1:19 PM [facility] Embedded Images 10/31/2024 1:19 PM [facility] Biopsy, NOS DUODENAL BIOPSY SPECIMEN / Unknown 10/30/2024 8:08 AM TRAFFIC ENGINEERING DIRECTOR 10/30/2024 9:51 AM TRAFFIC ENGINEERING DIRECTOR Leo Rubio MD LAB - PATH OLOGY/CYTOLOGY ORDERABLES Performing Organization Address City/[facility]/ZIP Co de Phone Number [facility] [address] [phone] * (ABNORMAL) GLUCOSE - POINT OF CARE (10/30/2024 7:45 AM TRAFFIC ENGINEERING DIRECTOR) Glucose WB/POC 156(H) 70 - 99 mg/dL 10/30/2024 10:21 AM [facility] Specimen Type Venous 10/30/2024 10:21 AM [facility] Blood BLOOD SPECIMEN / Unknown 10/30/2024 7:45 AM TRAFFIC ENGINEERING DIRECTOR 10/30/2024 10:21 AM TRAFFIC ENGINEERING DIRECTOR Leo Rubio MD LAB - POIN T OF CARE ORDERABLES Performing Organization Address City/[facility]/ZIP Co de Phone Number [facility] [address] [place] [phone] [phone] * EGD (10/30/2024 7:33 AM TRAFFIC ENGINEERING DIRECTOR) Report Endoscopy POC Endoscopy Department Report _ [...] entire procedure. Procedure Code(s): --- Professional --- 25083, Esophagogastroduod enoscopy, flexible, transoral; with biopsy, single or multiple Diagnosis Code(s): --- Professional --- D50.9, Iron deficiency anemia, unspecified CPT copyright 2021 [employer] [place] [employer]. All rights reserved. The codes documented in this report are preliminary and upon supervisor sulfuric acid plant review may be revised to meet current compliance requirements. Leo Xavier MD 10/30/2024 8:50:50 AM This report has been signed electronically. Note Initiated On: 10/30/2024 7:33 AM Number of Addenda: [address] [phone] [facility] 10/30/2024 7:33 AM TRAFFIC ENGINEERING DIRECTOR Leo Rubio MD GI PROCEDU RE ORDERABLES [facility] * HCG URINE QUALITATIVE - POCT (IP) INTERFACED (10/30/2024 7:32 AM TRAFFIC ENGINEERING DIRECTOR) HCG Qual Urine Negative Negative 10/30/2024 7:38 AM TRAFFIC ENGINEERING DIRECTOR [facility] Urine URINE / Unknown 10/30/2024 7 :32 AM TRAFFIC ENGINEERING DIRECTOR 10/30/2024 7:38 AM TRAFFIC ENGINEERING DIRECTOR Leo Rubio MD LAB - POIN T OF CARE ORDERABLES Performing Organization Address City/[facility]/ZIP Co de Phone Number [address] [address], [place] [phone] * HCG URINE QUAL POCT NOTIFICATION (10/30/2024 7:27 AM TRAFFIC ENGINEERING DIRECTOR) Comment Notification Label Only - See Separate Report 10/30/2024 8:30 AM TRAFFIC ENGINEERING DIRECTOR [facility] Urine URINE / Unknown 10/30/2024 7 :27 AM TRAFFIC ENGINEERING DIRECTOR 10/30/2024 7:28 AM TRAFFIC ENGINEERING DIRECTOR Leo Rubio MD LAB - URIN ALYSIS ORDERABLES Performing Organization Address City/[facility]/ZIP Co de Phone Number [address] [address], [place] [phone] * (ABNORMAL) SOLUBLE TRANSFERRIN RECEPTOR (10/12/2024 12:16 PM TRAFFIC ENGINEERING DIRECTOR) Soluble Transferrin Receptor 6.6(H) 1.9 - 4.4 mg/L 10/15/2024 4:21 PM TRAFFIC ENGINEERING DIRECTOR [facility] ([facility]) Comment: INTERPRETIVE INFORMATION: Soluble Transferrin Receptor People [...] Fe Status High Normal High Performed By: [facility] [address] [place] [address] Certified Nurse Practitioner: Charles Verma MD, PhD CLIA Number: [id number] Blood BLOOD SPECIMEN / Unknown Venipuncture / Unknown 10/12/2024 12:16 PM TRAFFIC ENGINEERING DIRECTOR 10/12/2024 12:21 PM TRAFFIC ENGINEERING DIRECTOR Yeyo Swan MD LAB - CHEMISTRY ORDE [facility] ([facility]) [address] [place] [address], [facility] * (ABNORMAL) CBC WITH DIFFERENTIAL (10/12/2024 12:16 PM [facility]) WBC 9.7 4.0 - 10.7 x10E9/L 10/12/2024 12:26 PM [facility] RBC Count 4.25 3.90 - 5.20 x10E12/L 10/12/2024 12:26 PM [facility] Hemoglobin 11.8(L) 11.9 - 15.8 g/dL 10/12/2024 12:26 PM [facility] Hematocrit 34.7(L) 34.8 - 46.1 % 10/12/2024 12:26 PM [facility] MCV 81.6 80.0 - 98.0 fL 10/12/2024 12:26 PM [facility] MCH 27.8 26.7 - 33.6 pg 10/12/2024 12:26 PM [facility] MCHC 34.0 31.7 - 36.3 g/dL 10/12/2024 12:26 PM [facility] RDW-CV 12.1 11.3 - 14.8 % 10/12/2024 12:26 PM [facility] Platelet Count 377 150 - 420 x10E9/L 10/12/2024 12:26 PM [facility] MPV 9.5 7.8 - 11.4 fL 10/12/2024 12:26 PM [facility] Preliminary Absolute Neutrophil 6.14 1.60 - 7.50 x10E9/L 10/12/2024 12:26 PM [facility] Neutrophil % 63.7 41.0 - 74.0 % 10/12/2024 12:26 PM [facility] Lymphocyte % 27.4 17.0 - 47.0 % 10/12/2024 12:26 PM [facility] Monocyte % 7.0 3.0 - 11.0 % 10/12/2024 12:26 PM [facility] Eosinophil % 1.3 0.0 - 7.0 % 10/12/2024 12:26 PM [facility] Basophil % 0.3 0.0 - 1.6 % 10/12/2024 12:26 PM [facility] Immature Granulocytes % 0.3 0.0 - 1.0 % 10/12/2024 12:26 PM [facility] Neutrophil Absolute 6.14 1.60 - 7.50 x10E9/L 10/12/2024 12:26 PM [facility] Lymphocyte Absolute 2.65 1.00 - 4.40 x10E9/L 10/12/2024 12:26 PM [facility] Monocyte Absolute 0.68 0.15 - 1.00 x10E9/L 10/12/2024 12:26 PM [facility] Eosinophil Absolute 0.13 0.00 - 0.60 x10E9/L 10/12/2024 12:26 PM [facility] Basophil Absolute 0.03 0.00 - 0.13 x10E9/L 10/12/2024 12:26 PM [facility] Blood BLOOD SPECIMEN / Unknown Venipuncture / Unknown 10/12/2024 12:16 PM TRAFFIC ENGINEERING DIRECTOR 10/12/2024 12:21 PM TRAFFIC ENGINEERING DIRECTOR Yeyo Swan MD LAB - HEMATOLOGY ORD ERABLES [facility] [address] [place] [address], [facility] [phone] * (ABNORMAL) COMPREHENSIVE METABOLIC PANEL (10/12/2024 12:16 PM [facility]) BUN 11 7 - 26 mg/dL 10/12/2024 12:54 PM [facility] Creatinine 0.72 0.56 - 0.96 mg/dL 10/12/2024 12:54 PM [facility] Sodium 137 136 - 145 mmol/L 10/12/2024 12:54 PM [facility] Potassium 3.8 3.5 - 4.5 mmol/L 10/12/2024 12:54 PM [facility] Chloride 104 98 - 107 mmol/L 10/12/2024 12:54 PM [facility] CO2 24 22 - 29 mmol/L 10/12/2024 12:54 PM [facility] Glucose 244(H) 70 - 99 mg/dL 10/12/2024 12:54 PM [facility] Calcium 8.9 8.4 - 10.2 mg/dL 10/12/2024 12:54 PM [facility] Protein Total 7.2 6.0 - 8.3 g/dL 10/12/2024 12:54 PM [facility] Albumin 3.5 3.4 - 5.0 g/dL 10/12/2024 12:54 PM [facility] Bilirubin Total 0.3 0.2 - 1.2 mg/dL 10/12/2024 12:54 PM [facility] Alkaline Phosphatase 76 40 - 150 U/L 10/12/2024 12:54 PM [facility] ALT 23 5 - 55 U/L 10/12/2024 12:54 PM [facility] AST 17 5 - 34 U/L 10/12/2024 12:54 PM [facility] Anion Gap 9 6 - 16 10/12/2024 12:54 PM [facility] BUN/Creatinine Ratio 15 7 - 23 10/12/2024 12:54 PM [facility] Osmolality Calculated 291 275 - 295 mOsm/kg 10/12/2024 12:54 PM [facility] Albumin/Globulin Ratio 0.9(L) 1.1 - 2.3 10/12/2024 12:54 PM [facility] eGFR by CKD-EPI >90 >=90 mL/min/1.7 3 m2 10/12/2024 12:54 PM [facility] Blood BLOOD SPECIMEN / Unknown Venipuncture / Unknown 10/12/2024 12:16 PM TRAFFIC ENGINEERING DIRECTOR 10/12/2024 12:21 PM TRAFFIC ENGINEERING DIRECTOR Yeyo Swan MD LAB - CHEMISTRY [facility] Performing Organization Address City/[facility]/ZIP Co de Phone Number [address] [address], [place] [phone] * (ABNORMAL) IRON + TRANSFERRIN PANEL (10/12/2024 12:16 PM TRAFFIC ENGINEERING DIRECTOR) Iron 18(L) 40 - 150 ug/dL 10/12/2024 12:56 PM [facility] Transferrin 266 174 - 382 mg/dL 10/12/2024 12:56 PM [facility] Transferrin Saturation % 5(L) 16 - 50 % 10/12/2024 12:56 PM [facility] TIBC Calculated 333 240 - 450 ug/dL 10/12/2024 12:56 PM [facility] Blood BLOOD SPECIMEN / Unknown Venipuncture / Unknown 10/12/2024 12:16 PM TRAFFIC ENGINEERING DIRECTOR 10/12/2024 12:21 PM TRAFFIC ENGINEERING DIRECTOR Yeyo Swan MD LAB - CHEMISTRY [facility] [address] [address], [place] [phone] * FERRITIN (10/12/2024 12:16 PM TRAFFIC ENGINEERING DIRECTOR) Ferritin 15 13 - 204 ng/mL 10/12/2024 1:12 PM [facility] Blood BLOOD SPECIMEN / Unknown Venipuncture / Unknown 10/12/2024 12:16 PM TRAFFIC ENGINEERING DIRECTOR 10/12/2024 12:21 PM TRAFFIC ENGINEERING DIRECTOR Yeyo Swan MD LAB - CHEMISTRY [facility] [address] [place] [address], [facility] [phone] * HEPATITIS C RNA QUANTITATIVE (06/17/2022 1:48 PM CDT) [facility] Hepatitis C RNA PCR, Interp Not detected Not detected 06/21/2022 11:16 AM CDT [facility] Blood BLOOD SPECIMEN / Unknown Lab Venipuncture / Unknown 06/17/2022 1:48 PM CDT 06/17/2022 2:07 PM CDT Narrative [facility] - 06/21/2022 11:16 AM CDT The Hepatitis C viral (HCV) RNA analysis utilized a serum sample, real-time reverse field gauger PCR, and is reported as Not Detected, [...] the isolation of HCV RNA with reverse field gauger of genomic HCV RNA followed by real-time [...] MICROBIOLOGY [address] [place] [address], [facility] [phone] from Last 3 Months or Most Recently Relevant to Health Maintenance Care Teams Generation Engineer Relationship Specialty Start Date End Date Kenneth Rodriguez MD [address] [id number] PCP - General Internal Medicine 03/17/23
[2024-12-22 08:01] LABS: Partial Thromboplastin Time 24.9 Seconds (22.3-36.8)
[2024-12-22] MEDS: HYDROmorphone HCL INJ (*CRX) 1 MG/ML SYR 0.5 MG IV PUSH (08:07)
[2024-12-22 08:11] LABS: Alanine Aminotransferase 22 U/L (6-35); Albumin Level 4.1 g/dL (3.5-5.1); Alkaline Phosphatase 61 U/L (38-126); Anion Gap 8 mmol/L (4-12); Aspartate Amino Transferase 25 U/L (14-36); Bilirubin,Total 0.3 mg/dL (0.2-1.3); Blood Urea Nitrogen 13 mg/dL (7-17); Calcium 8.9 mg/dL (8.4-10.2); Carbon Dioxide 25 mmol/L (22-30); Chloride 105 mmol/L (98-107); Estimated CRCL calculation 87 ml/min; Estimated Glomerular Filt Rate > 60; Glucose 154 mg/dL (65-110); Lipase 99 U/L (23-300); Potassium 3.9 mmol/L (3.4-5.0); Sodium 138 mmol/L (137-145)
[2024-12-22 08:20] LABS: Troponin I < 0.012 ng/mL (0.000-0.034)
[2024-12-22 08:34] LABS: D Dimer 0.53 ug/mL (<0.48)
--- NOTE | 2024-12-22 10:29 | ECG_ITS ---
Test Date: 2024-12-22 10:34:24 Measurements Intervals [place] Rate: 67 P: 19 UT: 152 QRS: -5 QRSD: 84 T: 15 QT: 428 QTc: 453 Interpretive Statements SINUS RHYTHM MINIMAL VOLTAGE CRITERIA FOR LVH, CONSIDER NORMAL VARIANT [MEETS CRITERIA IN ONE OF: R(aVL), S(V1), R(V5), R(V5/V6)+S(V1)] NONSPECIFIC T WAVE ABNORMALITY Compared to ECG 12/22/2024 07:34:23 NO SIGNIFICANT CHANGES Electronically Signed On 12-22-2024 17:36:53 CDT by Prosper Gibbs M.D.
[2024-12-22 11:00] VITALS: PULSE 70; RESP 16; O2SAT 100
[2024-12-22 11:08] LABS: Troponin I < 0.012 ng/mL (0.000-0.034)
[2024-12-22 11:42] VITALS: BP 187/90; PULSE 77; RESP 17; O2SAT 100
== END 2024-12-22 11:40 | disposition home or self-care (01) ==
PROVIDERS: Emergency Provider Emergency Medicine
DX: J18.9 Pneumonia, unspecified organism (principal); R07.89 Other chest pain; J45.909 Unspecified asthma, uncomplicated; I10 Essential (primary) hypertension; Z79.899 Other long term (current) drug therapy; R94.31 Abnormal electrocardiogram [ECG] [EKG]
CPT/HCPCS: 36415; 71046; 71275; 80053; 83690; 84484; 85025; 85380; 85610; 85730; 93005; 96374; 99284; J1171; Q9967

== ENCOUNTER 2025-03-13 16:23 | Emergency (ER) | payer OTHER, SELFPAY ==
--- NOTE | ~2025-03-13 | XR_ITS ---
XR chest 1V portable Ordering provider: Lillie Foley APRN History: 44 years Female with . tachycardia . Comparison: December 22, 2024 FINDINGS: MEDIASTINUM: The cardiac silhouette is not enlarged. LUNGS: No infiltrates, effusions or pneumothorax. OTHER: No free air under the diaphragm. Degenerative changes of the spine. IMPRESSION: No acute cardiopulmonary pathology. Reviewed, dictated and finalized at location A.
--- NOTE | ~2025-03-13 | US_ITS ---
US pelvic complete w TV Ordering provider: Lillie Foley APRN History: . heavy vaginal bleeding . Comparison: None. Technique: Transabdominal and endovaginal ultrasound of the pelvis (Doppler ultrasound interrogation techniques used as needed for this exam.) FINDINGS: CERVIX: Nabothian cysts. UTERUS: Measures 9.2x 6.5x 6.5 cm in length which is within normal limits and is anteverted. Fundal fibroid is seen measuring 2.8 x 2.3 x 2.8 cm. ENDOMETRIUM: Not well seen. IUD is not seen. CUL DE SAC: No free fluid. RIGHT OVARY: Not demonstrated. LEFT OVARY: Not demonstrated. ADNEXA: Normal. No mass. IMPRESSION: Fibroid uterus. Nabothian cysts. Nonvisualization of the endometrium and IUD. Nonvisualization of bot h ovaries.. Reviewed, dictated and finalized at location A. IMPRESSION: Fibroid uterus. Nabothian cysts. Nonvisualization of the endometrium and IUD. N onvisualization of both ovaries..
--- NOTE | ~2025-03-13 | CT_ITS ---
CTA chest PE abdomen pel Ordering provider: Lillie Foley APRN History: . tachycardia, intermittent shortness of breath . Comparison: December 03, 2023 Technique: CT angiogram chest was performed following timed intravenous injection of contrast. Thin s lice axial images and reformatted coronal images were obtained. Three dimensional reformatted images of the chest were also obtained using a [employer] workstation. Also, CT of the abdomen and pelvis was pe rformed with IV contrast. . Automated exposure control and iterative reconstruction technique were e mployed. The dose-length product was 1649.53 mGy-cm. 100 ML Omnipaque 350 was given IV FINDINGS: CHEST: --PULMONARY ARTERIES: No pulmonary embolus. --VISUALIZED THORACIC INLET: Normal. Axillary lymph nodes are seen in the largest on the left side measures 1.2 cm and on the right measur es 1.8 cm.. --MEDIASTINUM: Aorta/coronary arteries: The thoracic aorta is normal. Aberrant right subclavian artery. Normal Heart/other: The heart is not enlarged. Lymph nodes: No mediastinal or hilar adenopathy. --LUNGS: Focal atelectasis versus pneumonia seen in the right lower lobe laterally. No pulmonary nodules or ma sses. No effusions. No pneumothorax. --MUSCULOSKELETAL: Bones: Age appropriate degenerative change of the spine. Superficial soft tissues: The superficial soft tissues are normal. ABDOMEN/PELVIS: --MUSCULOSKELETAL: Superficial soft tissues: The superficial soft tissues are normal. Bones: Age appropriate degenerative changes of the spine. --UPPER ABDOMINAL ORGANS: Liver: Fat infiltration. Hepatomegaly. Gallbladder: Status post cholecystectomy. Spleen: Normal. Stomach/duodenum: Normal. Pancreas: Normal. Adrenals: Normal. Kidneys: Normal. --PELVIC ORGANS: The bladder is underfilled with thickened wall. No bladder stones. Uterus: Slightly bulky with possible fibroids. Ultrasound evaluation advised. Retroverted uterus. --BOWEL AND MESENTERY: Colon: Mild diverticulosis without diverticulitis sigmoid colon. Normal appendix. Small Bowel: Normal. No obstruction. Peritoneum/mesentery: No free air or free fluid. No mesenteric lymphadenopathy. --RETROPERITONEUM: Mild atheromatous disease of the abdominal aorta. No retroperitoneal lymphadenop athy. IMPRESSION: CHEST: 1. No pulmonary embolism. 2. No acute cardiopulmonary pathology. Focal area of atelectasis versus pneumonia is seen in the rig ht lower lobe laterally. ABDOMEN/PELVIS: 1. No evidence of appendicitis, diverticulitis or intestinal obstruction. 2. Hepatomegaly with fat infiltration. 3. Bulky uterus with possible fibroids. Ultrasound evaluation advised. Reviewed, dictated and finalized at location A. IMPRESSION: CHEST: 1. No pulmonary embolism. 2. No acute cardiopulmonary pathology. Focal area of atelectasis versus pneumo colton is seen in the right lower lobe laterally. ABDOMEN/PELVIS: 1. No evidence of appendicitis, diverticulitis or intestinal obstruction. 2. Hepatomegaly with fat infiltration. 3. Bulky uterus with possible fibroids. Ultrasound evaluation advised.
[2025-03-13 16:27] VITALS: BP 188/90; PULSE 120; RESP 16; TEMP 36.8; O2SAT 100
--- NOTE | 2025-03-13 17:01 | ECG_ITS ---
Test Date: 2025-03-13 17:08:45 Measurements Intervals [place] Rate: 104 P: 42 [place]: 124 QRS: 9 QRSD: 83 T: 40 QT: 348 QTc: 459 Interpretive Statements SINUS TACHYCARDIA VOLTAGE CRITERIA FOR LVH BORDERLINE ECG Compared to ECG 12/22/2024 10:34:24 HEART RATE HAS INCREASED Electronically Signed On 03-13-2025 18:46:56 CDT by Ed Jones D.O.
[2025-03-13 17:05] VITALS: BP 172/82; PULSE 109; RESP 13; O2SAT 100
[2025-03-13 17:06] VITALS: PULSE 111; O2SAT 100
--- NOTE | 2025-03-13 17:34 | ED_ITS ---
HPI - Arrhythmia/Palpitations General Chief Complaint: Arrhythmia/Palpitations Stated Complaint: tachycardia? Time Seen by Provider: 03/13/25 17:03 History of Present Illness HPI narrative: Patient is a 44-year-old female who presents to the ER with complaints tachycardia for the past month, lightheadedness, and heavy vaginal bleeding. She reports last month she had her menstrual period for approximately 3 weeks. Patient went to her OBGYN, Dr. Cameron, who was unable to find patient's IUD strings. Her OBGYN advised her to come into the ER if her symptoms worsened. Patient reports she is supposed to get iron infusions every month due to her anemia has not been able to have them recently. She endorses a history of prediabetes and high blood pressure. She reports when she stands up she feels lightheaded and weak. Patient endorses tenderness in her upper and lower abdomen. She denies any shortness of breath, recent fevers, or recent syncopal episodes. Related Data Home Medications ?Medication ?Instructions ?Recorded ?Confirmed ?Last Taken ?Type albuterol 90 mcg/actuation aerosol 90 mcg inhalation PRN PRN 02/17/22 12/22/24 Unknown History inhaler difficulty breathing losartan 25 mg tablet 25 mg PO DAILY 02/17/22 12/22/24 Unknown History metoprolol tartrate 37.5 mg tablet 50 mg PO DAILY 02/17/22 12/22/24 Unknown History mometasone-formoterol HFA 50 mcg-5 2 puff inhalation Q12H 02/17/22 12/22/24 Unknown History mcg/actuation aerosol inhaler (Dulera) Allergies Allergy/AdvReac Type Severity Reaction Status Date / Time acetaminophen (From Vicodin) AdvReac Intermediate Other Verified 12/22/24 07:33 hydrocodone (From Vicodin) AdvReac Intermediate Other Verified 12/22/24 07:33 naproxen AdvReac Intermediate Other Verified 12/22/24 07:33 sulfamethoxazole (From AdvReac Nausea and Verified 12/22/24 07:33 Bactrim) Vomiting trimethoprim (From Bactrim) AdvReac Nausea and Verified 12/22/24 07:33 Vomiting Review of Systems 2 Review of Systems: All systems reviewed & are unremarkable except as noted in HPI and below PMFSH Past Medical History Medical History Asthma Hypertension Surgical History Surgical History H/O section Social History Social History Smoking status: Never smoker Alcohol intake: never Substance use: never Exam 2 Narrative: GENERAL: Well appearing, well-nourished, non-toxic, in no acute distress. HEAD: Normocephalic, atraumatic. NECK: Supple. No adenopathy, no masses. RESPIRATORY: Airway patent, respirations nonlabored. Clear to auscultation bilaterally, no rales, rhonchi, wheezing. CARDIOVASCULAR: Tachycardia without murmurs, rubs, or gallops. Peripheral pulses 2+ and equal bilaterally. ABDOMINAL: Soft, tender all 4 quadrants, nondistended, no hepatosplenomegaly. Normoactive BS. MUSCULOSKELETAL: Moves all extremities. Strength/ROM intact without gross deformities. SKIN: Warm, dry, normal color. No rashes. NEURO: A&O X3. Speech clear. Cranial nerves II-XII intact. No ataxic movements. PSYCHIATRIC: Appropriate mood and affect. Normal interaction. Course Vital Signs Vital signs: Vital Signs Temperature 36.8 C 03/13/25 16:27 Pulse Rate 120 H 03/13/25 16:27 Respiratory Rate 16 03/13/25 16:27 Blood Pressure 188/90 H 03/13/25 16:27 Pulse Oximetry 100 03/13/25 16:27 Oxygen Delivery Room Air 03/13/25 16:27 Temperature 36.8 C 03/13/25 16:27 Pulse Rate 97 03/13/25 19:27 Respiratory Rate 28 H 03/13/25 19:27 Blood Pressure 163/86 H 03/13/25 19:27 Pulse Oximetry 100 03/13/25 19:27 Oxygen Delivery Room Air 03/13/25 17:06 MDM - Arrhythmia/Palpitations MDM Narrative Medical decision making narrative: Patient is a 44-year-old female who presents to the ER with complaints tachycardia for the past month, lightheadedness, and heavy vaginal bleeding. She reports last month she had her menstrual period for approximately 3 weeks. Patient went to her OBGYN, Dr. Cameron, who was unable to find patient's IUD strings. Her OBGYN advised her to come into the ER if her symptoms worsened. Patient reports she is supposed to get iron infusions every month due to her anemia has not been able to have them recently. She endorses a history of prediabetes and high blood pressure. She reports when she stands up she feels lightheaded and weak. Patient endorses tenderness in her upper and lower abdomen. She denies any shortness of breath, recent fevers, or recent syncopal episodes. Labs Ordered: CBC, CMP, UA, PTT, INR, UDS, lipase Imaging Ordered: Ultrasound pelvis, chest x-ray, CTA chest PE abdomen pelvis Medications Ordered: 1 L normal saline IV bolus, Augmentin p.o., Zithromax p.o. Results: Patient's CT scan indicates CHEST: 1. No pulmonary embolism. 2. No acute cardiopulmonary pathology. Focal area of atelectasis versus pneumonia is seen in the right lower lobe laterally. ABDOMEN/PELVIS: 1. No evidence of appendicitis, diverticulitis or intestinal obstruction. 2. Hepatomegaly with fat infiltration. 3. Bulky uterus with possible fibroids. Ultrasound evaluation advised. Diagnosis: Urinary tract infection, pneumonia, uterine fibroid, low hemoglobin Consults: OBGYN (outpatient) Patient Education/Shared MDM: Results of lab work and imaging shared with patient. She endorses improvement of symptoms following medication administration and her heart rate has come down nicely. Patient strongly advised to maintain hydration status upon discharge and follow-up with her OBGYN and PCP as soon as possible. She will be discharged home with a prescription for Augmentin and Azithromycin to treat her UTI and pneumonia. Strict return precautions provided. Patient verbalized understanding and is in agreement with plan. Vital signs stable at time of discharge. All questions answered. Differential Diagnosis Differential diagnosis: Likely palpitations, sinus tachycardia and other (Pneumonia, urinary tract infection, fibroids) Lab Data Attestation: I reviewed the patient's lab results. 03/13/25 18:27 03/13/25 18:27 Labs: Lab Results 03/13/25 03/13/25 03/13/25 Range/Units 18:27 18:27 19:49 WBC 11.7 H (4.5-10.0) K/mm3 RBC 3.51 L (4.2-5.4) M/mm3 Hgb 7.5 L D (12.0-15.0) g/dL Hct 25.9 L (37.0-47.0) % MCV 73.8 L (80-100) fl MCH 21.4 L (26-34) pg MCHC 29.0 L (32-36) g/dl RDW 16.2 H (11.5-14.5) % Plt Count 463 H (150-375) k/mm3 MPV 9.5 (7.4-10.4) fl Immature Gran % (Auto) 0.4 (0-0.5) % Neut % (Auto) 63.2 (45.5-73.1) % Lymph % (Auto) 29.1 (18.3-44.2) % [place] % (Auto) 5.8 (2.6-8.5) % Eos % (Auto) 1.2 (0-4.4) % Baso % (Auto) 0.3 (0.2-1.2) % Lymph # (Auto) 3.40 H (0.9-3.2) K/mm3 [place] # (Auto) 0.7 H (0.1-0.6) K/mm3 Eos # (Auto) 0.1 (0-0.3) K/mm3 Baso # (Auto) 0.0 (0.0-0.1) K/mm3 Abs Immat Gran (auto) 0.05 H (0.00-0.031) K/mm3 Absolute Neuts (auto) 7.4 H (1.3-6.7) K/mm3 Absolute Nucleated RBC 0.000 (0.0-0.012) K/mm3 Band Neutrophils % Not Reportable Nucleated RBC % 0.0 (0.0-0.2) % Platelet Estimate Slightly increased (Adequate) Hypochromasia 1+ Anisocytosis 1+ Schistocytes None seen PT 13.0 (11.1-14.7) Seconds INR 1.0 APTT 22.5 (22.3-36.8) Seconds D-Dimer 0.95 H Cancelled (<0.48) ug/mL Sodium 137 (137-145) mmol/L Potassium 3.6 (3.4-5.0) mmol/L Chloride 104 (98-107) mmol/L Carbon Dioxide 22 (22-30) mmol/L Anion Gap 11 (4-12) mmol/L BUN 14 (7-17) mg/dL Creatinine 0.94 (0.7-1.0) mg/dL Estim Creat Clear Calc 77 ml/min Estimated GFR > 60 (59 - ) Glucose 141 H (65-110) mg/dL Calcium 9.3 (8.4-10.2) mg/dL Total Bilirubin 0.3 (0.2-1.3) mg/dL AST 36 (14-36) U/L ALT 26 (6-35) U/L Alkaline Phosphatase 72 (38-126) U/L Troponin I < 0.012 (0.000-0.034) ng/mL NT-Pro-B Natriuret Pep 64 (19.9-100) pg/mL Total Protein 7.8 (6.3-8.2) g/dL Albumin 4.3 (3.5-5.1) g/dL Lipase 178 (23-300) U/L Urine Color Dark yellow (Yellow) Urine Appearance Clear (Clear) Urine pH 5.0 (5.0-9.0) Ur Specific [place] 1.016 (1.001-1.035) Urine Protein 1+ H (Negative) mg/dL Urine Glucose (UA) Negative (Negative) mg/dL Urine Ketones Negative (Negative) mg/dL Ur Blood (Man) 3+ H (Negative) Urine Nitrate Negative (Negative) Urine Bilirubin Negative (Negative) Urine Urobilinogen 0.2 (<2.0) mg/dL Leukocyte Esterase Rfl 2+ H (Negative) ESME/UL Urine RBC >100 H (0-2) /hpf Urine WBC 11-20 H (0-3) /hpf Ur Squamous Epith Cells None seen (Few) /hpf Urine Bacteria Rare /hpf Urine Casts 0-2 POC Urine HCG, Qual (Negative) Urine Opiates Screen Negative (Negative) Urine Methadone Screen Negative (Negative) Ur Barbiturates Screen Negative (Negative) Ur Phencyclidine Scrn Negative (Negative) Ur Amphetamine Screen Negative (Negative) U Benzodiazepines Scrn Negative (Negative) Urine Cocaine Screen Negative (Negative) U Cannabinoids Screen Negative (Negative) 03/13/25 Range/Units 20:05 WBC (4.5-10.0) K/mm3 RBC (4.2-5.4) M/mm3 Hgb (12.0-15.0) g/dL Hct (37.0-47.0) % MCV (80-100) fl MCH (26-34) pg MCHC (32-36) g/dl RDW (11.5-14.5) % Plt Count (150-375) k/mm3 MPV (7.4-10.4) fl Immature Gran % (Auto) (0-0.5) % Neut % (Auto) (45.5-73.1) % Lymph % (Auto) (18.3-44.2) % [place] % (Auto) (2.6-8.5) % Eos % (Auto) (0-4.4) % Baso % (Auto) (0.2-1.2) % Lymph # (Auto) (0.9-3.2) K/mm3 [place] # (Auto) (0.1-0.6) K/mm3 Eos # (Auto) (0-0.3) K/mm3 Baso # (Auto) (0.0-0.1) K/mm3 Abs Immat Gran (auto) (0.00-0.031) K/mm3 Absolute Neuts (auto) (1.3-6.7) K/mm3 Absolute Nucleated RBC (0.0-0.012) K/mm3 Band Neutrophils % Nucleated RBC % (0.0-0.2) % Platelet Estimate (Adequate) Hypochromasia Anisocytosis Schistocytes PT (11.1-14.7) Seconds INR APTT (22.3-36.8) Seconds D-Dimer (<0.48) ug/mL Sodium (137-145) mmol/L Potassium (3.4-5.0) mmol/L Chloride (98-107) mmol/L Carbon Dioxide (22-30) mmol/L Anion Gap (4-12) mmol/L BUN (7-17) mg/dL Creatinine (0.7-1.0) mg/dL Estim Creat Clear Calc ml/min Estimated GFR (59 - ) Glucose (65-110) mg/dL Calcium (8.4-10.2) mg/dL Total Bilirubin (0.2-1.3) mg/dL AST (14-36) U/L ALT (6-35) U/L Alkaline Phosphatase (38-126) U/L Troponin I (0.000-0.034) ng/mL NT-Pro-B Natriuret Pep (19.9-100) pg/mL Total Protein (6.3-8.2) g/dL Albumin (3.5-5.1) g/dL Lipase (23-300) U/L Urine Color (Yellow) Urine Appearance (Clear) Urine pH (5.0-9.0) Ur Specific [place] (1.001-1.035) Urine Protein (Negative) mg/dL Urine Glucose (UA) (Negative) mg/dL Urine Ketones (Negative) mg/dL Ur Blood (Man) (Negative) Urine Nitrate (Negative) Urine Bilirubin (Negative) Urine Urobilinogen (<2.0) mg/dL Leukocyte Esterase Rfl (Negative) ESME/UL Urine RBC (0-2) /hpf Urine WBC (0-3) /hpf Ur Squamous Epith Cells (Few) /hpf Urine Bacteria /hpf Urine Casts POC Urine HCG, Qual Negative (Negative) Urine Opiates Screen (Negative) Urine Methadone Screen (Negative) Ur Barbiturates Screen (Negative) Ur Phencyclidine Scrn (Negative) Ur Amphetamine Screen (Negative) U Benzodiazepines Scrn (Negative) Urine Cocaine Screen (Negative) U Cannabinoids Screen (Negative) Imaging Data Attestation: I personally reviewed and interpreted this imaging study as follows: Radiologist's impression: Impressions Chest X-Ray 03/13/25 17:55 IMPRESSION: No acute cardiopulmonary pathology. Pelvic/Transvag US 03/13/25 18:24 IMPRESSION: Fibroid uterus. Nabothian cysts. Nonvisualization of the endometrium and IUD. Nonvisualization of both ovaries.. Chest/Abdomen/Pelvis CTA 03/13/25 21:05 IMPRESSION: CHEST: 1. No pulmonary embolism. 2. No acute cardiopulmonary pathology. Focal area of atelectasis versus pneumonia is seen in the right lower lobe laterally. ABDOMEN/PELVIS: 1. No evidence of appendicitis, diverticulitis or intestinal obstruction. 2. Hepatomegaly with fat infiltration. 3. Bulky uterus with possible fibroids. Ultrasound evaluation advised. Discharge Plan Discharge Clinical Impression: Urinary tract infection, Sinus tachycardia, Uterine fibroid, Abnormal vaginal bleeding, Low hemoglobin Patient Disposition: Home Condition: Stable Instructions: Antibiotic Form Additional Instructions: Please return to the ER with any worsening symptoms. Follow-up with your OBGYN and primary care provider as soon as possible, as discussed. Take all medications as prescribed, including regularly scheduled medications. Complete your full dose of antibiotics. Patient Language: Niuean Prescriptions: New azithromycin 250 mg tablet See Rx Instructions .ROUTE .COMPLEX Qty: 6 0RF Rx Instructions: For 250 mg dose pack: take 500 mg today (day 1), then 250 mg for 4 days (days 2-5) amoxicillin-pot clavulanate 875-125 mg tablet 1 tablet PO Q12H Qty: 20 0RF No Action losartan 25 mg Tablet 25 mg PO DAILY albuterol 90 mcg/actuation Aerosol 90 mcg INHALATION PRN PRN (Reason: difficulty breathing) metoprolol tartrate 37.5 mg Tablet 50 mg PO DAILY Dulera 50-5 mcg/actuation Hfa Aerosol Inhaler 2 puff INHALATION Q12H azithromycin 250 mg tablet See Rx Instructions .ROUTE .COMPLEX Qty: 6 0RF Rx Instructions: For 250 mg dose pack: take 500 mg today (day 1), then 250 mg for 4 days (days 2-5) amoxicillin-pot clavulanate 875-125 mg tablet 1 tablet PO Q12H 7 Days Qty: 14 0RF potassium chloride 20 mEq tablet extended release 20 meq PO DAILY Qty: 5 0RF Follow-up/Referrals: PHYSICIAN NOT ON STAFF,NONSTAFF [Primary Care Provider] - Time of Disposition: 23:50
--- NOTE | 2025-03-13 17:40 | PC.NURSE ---
patient currently in ultrasound
--- OUTSIDE RECORDS SUMMARY | 2025-03-13 18:05 | XMS_ITS | Clinical Summary ---
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
[2025-03-13] MEDS: SODIUM CHLORIDE 0.9% IV 1,000 ML 999 ML IV CONT (18:29)
[2025-03-13 18:52] LABS: Basophils Percent Auto 0.3 % (0.2-1.2); Eosinophils Absolute Auto 0.1 K/mm3 (0-0.3); Eosinophils Percent Auto 1.2 % (0-4.4); Hematocrit 25.9 % (37.0-47.0); Hemoglobin 7.5 g/dL (12.0-15.0); Immature Granulocyte Absolute 0.05 K/mm3 (0.00-0.031); Immature Granulocyte Percent A 0.4 % (0-0.5); Lymphocytes Percent Auto 29.1 % (18.3-44.2); Mean Corpuscular Hemoglobin 21.4 pg (26-34); Mean Corpuscular Volume 73.8 fl (80-100); Mean Platelet Volume 9.5 fl (7.4-10.4); Monocytes Absolute Auto 0.7 K/mm3 (0.1-0.6); Monocytes Percent Auto 5.8 % (2.6-8.5); Neutrophils Absolute Auto 7.4 K/mm3 (1.3-6.7); Neutrophils Percent Auto 63.2 % (45.5-73.1); Platelet Count Result 463 k/mm3 (150-375); Red Blood Count 3.51 M/mm3 (4.2-5.4); Red Cell Distribution Width 16.2 % (11.5-14.5); White Blood Count 11.7 K/mm3 (4.5-10.0)
[2025-03-13 18:59] LABS: Partial Thromboplastin Time 22.5 Seconds (22.3-36.8)
[2025-03-13 19:06] LABS: D Dimer 0.95 ug/mL (<0.48)
[2025-03-13 19:14] LABS: Troponin I < 0.012 ng/mL (0.000-0.034)
[2025-03-13 19:23] LABS: Anisocytosis 1+; Platelet Estimate Slightly Increased (Adequate)
[2025-03-13 19:24] LABS: Hypochromasia 1+; Schistocytes None Seen
[2025-03-13 19:27] VITALS: BP 163/86; PULSE 97; RESP 28; O2SAT 100
[2025-03-13 20:07] LABS: BEDSIDEPREGUCG Negative (Negative)
[2025-03-13 20:18] LABS: Bacteria Urine Rare /hpf; Non Pathogenic Casts 0-2; RBC Urine >100 /hpf (0-2); Squamous Epithelial Cell Urine None Seen /hpf (Few)
[2025-03-13 20:21] LABS: Alanine Aminotransferase 26 U/L (6-35); Albumin Level 4.3 g/dL (3.5-5.1); Alkaline Phosphatase 72 U/L (38-126); Anion Gap 11 mmol/L (4-12); Aspartate Amino Transferase 36 U/L (14-36); Bilirubin,Total 0.3 mg/dL (0.2-1.3); Blood Urea Nitrogen 14 mg/dL (7-17); Calcium 9.3 mg/dL (8.4-10.2); Carbon Dioxide 22 mmol/L (22-30); Chloride 104 mmol/L (98-107); Estimated CRCL calculation 77 ml/min; Estimated Glomerular Filt Rate > 60; Glucose 141 mg/dL (65-110); Lipase 178 U/L (23-300); Potassium 3.6 mmol/L (3.4-5.0); Sodium 137 mmol/L (137-145); Total Protein 7.8 g/dL (6.3-8.2)
[2025-03-13 20:31] LABS: NT Pro B Type Natriuretic Pept 64 pg/mL (19.9-100)
[2025-03-13 20:37] LABS: Amphetamine Screen Urine Negative (Negative); Barbiturate Screen Urine Negative (Negative); Benzodiazepines Screen Urine Negative (Negative); Cannabinoid Screen Urine Negative (Negative); Cocaine Screen Urine Negative (Negative); Methadone Screen Urine Negative (Negative); Opiate Screen Urine Negative (Negative); Phencyclidine Screen Urine Negative (Negative)
[2025-03-13 21:08] LABS: Add Urine Microscopic? YES; Appearance Urine Clear (Clear); Bilirubin Urine Negative (Negative); Blood Urine 3+ (Negative); Glucose Urine UA Negative (Negative); Ketones Urine Negative (Negative); Leukocyte Esterase Ur 2+ LEU/UL (Negative); Nitrate Urine Negative (Negative); Protein Urine 1+ mg/dL (Negative); Specific Grav Ur 1.016 (1.001-1.035); Urobilinogen Urine 0.2 mg/dL (<2.0)
[2025-03-13 21:10] LABS: Color Urine Dark Yellow (Yellow)
--- NOTE | 2025-03-13 21:20 | PC.NURSE ---
phlebotomy at bedside to attempt to collect trop2 - 3hour
[2025-03-13] MEDS: AMOXICILLIN/CLAVULANATE K 875-125 MG TAB 1 TABLET PO (23:54)
[2025-03-13] MEDS: AZITHROMYCIN 250 MG TABLET 500 MG PO (23:54)
[2025-03-14 00:01] VITALS: BP 137/76; PULSE 98; RESP 18; TEMP 37.2; O2SAT 98
== END 2025-03-14 00:03 | disposition home or self-care (01) ==
PROVIDERS: Emergency Medicine; Emergency Provider Registered Nurse
DX: N39.0 Urinary tract infection, site not specified (principal); R00.0 Tachycardia, unspecified; D25.9 Leiomyoma of uterus, unspecified; N93.9 Abnormal uterine and vaginal bleeding, unspecified; D64.9 Anemia, unspecified; I10 Essential (primary) hypertension; J45.909 Unspecified asthma, uncomplicated
CPT/HCPCS: 36415; 71045; 71275; 74177; 76830; 76856; 80053; 80307; 81001; 81025; 83690; 83880; 84484; 85025; 85380; 85610; 85730; 87086; 87186; 93005; 96360; 99284; A9270; J7030; Q9967

== ENCOUNTER 2025-05-15 02:27 | Emergency (ER) | payer OTHER, SELFPAY ==
[2025-05-15 02:28] VITALS: BP 167/83; PULSE 83; RESP 18; TEMP 36.3; O2SAT 100
--- OUTSIDE RECORDS SUMMARY | 2025-05-15 02:29 | XMS_ITS | Clinical Summary ---
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 Gender Identity Not on file Sexual Orientation Not on file Plan of Treatment Health Maintenance Due Date Last Done Comments Hepatitis C Virus (HCV) Screening 1978 TdaP Immunization 1978 Hepatitis B Immunization (1 of 3 - 19+ 3-dose series) 1997 Pap Smear 1999 Cervical Cancer Screening (CCS) 2008 HPV/Cotest 2008 Cologuard 2023 Colonoscopy 2023 Colorectal Cancer Screening 2023 Immunochemical Fecal Occult Blood 2023 SARS-COV-2 Immunization ( season) 2024 Influenza Immunization (#1) 2025 Respiratory Syncytial Virus (RSV) Immunization (Adult) (1 - 1-dose 75+ series) 2053 Human Papillomavirus (HPV) Immunization Aged Out No longer eligible b ased on patient's age to complete this topic Meningococcal Immunization (ACWY) Aged Out No longer eligible based on patient's age to complete this topic Pneumococcal Immunization Combined Aged Out No longer eligible based on patient's age to complete this topic Rotavirus Immunization Aged Out No lo nger eligible based on patient's age to complete this topic
--- OUTSIDE RECORDS SUMMARY | 2025-05-15 02:29 | XMS_ITS | Clinical Summary ---
Author Organization [facility] Address [facility] [place] [address] Care Team Providers Care Program Eligibility Specialist Name Role Phone Kenneth Rodriguez MD Primary Care Provider [phone] Allergies Active Allergy Reactions Criticality Noted Date [...] Encounters Date Type Department Care Team Description 03/20/2025 12:57 AM CDT - 03/20/2025 3:10 AM CDT Emergency [facility] [place] [address] Nabil Bejarano MD,PHD Abnormal Lab Results Discharge Disposition: Home or Self Care (Routine Discharge) 03/20/2025 Travel 02/15/2025 7:50 AM CDT - 02/15/2025 11:59 PM CDT Hospital Encounter [facility] [place] [address] Ritchie Murillo MD Discharge Disposition: Home or Self Care (Routine Discharge) 02/15/2025 Travel from Last 3 Months Family History [...] Sign Reading Time Taken Comments Blood Pressure 139/81 03/20/2025 3:00 AM CDT Pulse 76 03/20/2025 3:00 AM CDT Temperature 36.5 C (97.7 F) 03/20/2025 3:00 AM CDT Respiratory Rate 18 03/20/2025 3:00 AM CDT Oxygen Saturation 97% 03/20/2025 3:00 AM CDT Inhaled Oxygen Concentration - - Weight 99.3 kg (219 lb) 03/20/2025 12:41 AM CDT Height 165.1 cm (5' 5) 03/20/2025 12:41 AM CDT Body Mass Index 36.44 03/20/2025 12:41 AM CDT Plan of Treatment Health Maintenance Due Date Last Done Comments Colorectal Cancer Screening Colonoscopy (10 Years) 1978 Annual Physical 1981 DTaP, Tdap and Td Vaccines (1 - Tdap) 1997 Hepatitis B Vaccines (1 of 3 - 19+ 3-dose series) 1997 Cervical Cancer Screening Pap with HPV Testing (Age 30 to 64) Every 5 Years 2008 COVID-19 Vaccine ( season) 2024 Cervical Cancer Screening Pap Smear (Age 30 to 64) Every 3 Years 11/18/2026 11/18/2023, 10/19/2023, 04/04/2023 Cervical Cancer Screening with HPV 11/18/2026 Mammogram Screening 02/15/2027 02/15/2025, 07/16/2024, 01/13/2024, Additional history exists Hepatitis C Completed 06/17/2022 Meningococcal B Vaccine Aged Out No l onger eligible based on patient's age to complete this topic Meningococcal Vaccine Aged Out No manfred toyin eligible based on patient's age to complete this topic Pneumococcal Vaccine: Pediatrics (0 to 5 Years) and At-Risk Patients (6 to 49 Years) Aged Out No longer eligible based on patient's age to complete this topic RSV Immunizations Under 20 Months Aged Out No longer eligible based on patient's age to complete this topic Procedures Procedure Name Priority Date/Time Associated Diagnosis Comments TYPE & SCREEN STAT 03/20/2025 2:00 AM CDT COMPREHENSIVE METABOLIC PANEL STAT 03/20/2025 1:45 AM CDT CBC W/DIFF AUTOMATED STAT 03/20/2025 1:45 AM CDT US BREAST RT [employer] LTD Routine 8:30 AM CDT Abnormal mammogram Benign neoplasm of right breast MG DIAG W XAVIER BILAT DIGI Routine 02/15/2025 8:08 AM CDT Abnormal mammogram Benign neoplasm of right breast from Last 3 Months Results * TYPE & SCREEN (03/20/2025 2:00 AM CDT) UNITS ORDERED 1 03/20/2025 3:13 AM CDT [facility] ABO/RH B POSITIVE 03/20/2025 3:13 AM CDT [facility] ANTIBODY SCREEN NEGATIVE 3:13 AM CDT [facility] SAMPLE EXPIRATION 03/23/2025,23 59 03/20/2025 3:13 AM CDT [facility] BLOOD UNIT NUMBER [id number] 03/20/2025 3:16 AM CDT [facility] PRODUCT: PC LOW VOL LEUKOPOOR 03/20/2025 3:16 AM CDT [facility] UNIT DIVISION 00 03/20/2025 3:16 AM CDT [facility] BLOOD UNIT STATUS UNIT RELEASED 03/24/2025 6:39 AM CDT [facility] TRANSFUSION STATUS OK TO TRANSFUSE 03/20/2025 3:16 AM CDT [facility] CROSSMATCH COMPATIBLE-EX M 03/20/2025 3:16 AM CDT [facility] 03/20/2025 2:00 AM CDT us Shahana BROWNE BLOOD BANK TEST ORDERABLES Fin al Result [facility] [address] [place] [address], * (ABNORMAL) COMPREHENSIVE METABOLIC PANEL (03/20/2025 1:45 AM CDT) [facility] GLUCOSE 151(H) 70 - 99 MG/DL 03/20/2025 2:23 AM CDT [facility] BUN 12 7 - 18 MG/DL 03/20/2025 2:23 AM CDT [facility] CREATININE S/P/B 0.87 0.55 - 1.02 MG/DL 03/20/2025 2:23 AM CDT [facility] SODIUM S/P/B 136 136 - 145 MMOL/L 03/20/2025 2:23 AM CDT [facility] POTASSIUM S/P/B 3.2(L) 3.5 - 5.1 MMOL/L 03/20/2025 2:23 AM CDT [facility] CHLORIDE S/P/B 103 97 - 115 MMOL/L 03/20/2025 2:23 AM CDT [facility] CO2 26.6 21 - 32 MMOL/L 03/20/2025 2:23 AM CDT [facility] CALCIUM S/P/B 8.9 8.5 - 10.1 MG/DL 03/20/2025 2:23 AM CDT [facility] BILIRUBIN TOTAL S/P/B 0.6 0.2 - 1.2 MG/DL 03/20/2025 2:23 AM CDT [facility] Comment: THIS ASSAY IS NOT RECOMMENDED FOR PATIENTS UNDERGOING TREATMENT WITH ELTROMBOPAG DUE TO THE POTENTIAL FOR FALSELY ELEVATED RESULTS. TOTAL PROTEIN S/P/B 7.5 6.4 - 8.2 G/DL 03/20/2025 2:23 AM CDT [facility] ALBUMIN S/P/B 3.3(L) 3.4 - 5.0 G/DL 03/20/2025 2:23 AM CDT [facility] AST 15 15 - 37 U/L 03/20/2025 2:23 AM CDT [facility] ALT 26 14 - 55 U/L 03/20/2025 2:23 AM CDT [facility] ALKALINE PHOSPHATASE S/P/B 64 50 - 136 U/L 03/20/2025 2:23 AM T [facility] ANION GAP 6.4 2 - 10 MMOL/L 03/20/2025 2:23 AM T [facility] BUN CREATININE RATIO 13.7 6 - 26 03/20/2025 2:23 AM T [facility] A/G RATIO 0.8(L) 1.0 - 2.0 RATIO 03/20/2025 2:23 AM T [facility] GFR ESTIMATE 83(L) >90 ML/MIN/1.7 3 M2 03/20/2025 2:23 AM T [facility] Comment: NOTE: eGFR is not calculated for patients <18 years of age or gender unknown. This is an estimated GFR calculation using the new CKD EPI creatinine equation without race and so does not require a correction factor for race. This estimated GFR should not be used for calculating drug doses. 03/20/2025 1:45 AM CDT [facility] Final Result [facility] [address] [place] [address], [place] [phone] * (ABNORMAL) CBC W/DIFF AUTOMATED (03/20/2025 1:45 AM CDT) [facility] Signature WBC 11.22(H) 4.5 - 11.0 x10'3/uL 03/20/2025 2:13 AM CDT [facility] RBC 3.43(L) 4.20 - 5.40 x10'6/uL 03/20/2025 2:13 AM CDT [facility] HGB 7.1(L) 12.0 - 16.0 G/DL 03/20/2025 2:13 AM CDT [facility] HCT 24.3(L) 38.0 - 48.0 % 03/20/2025 2:13 AM CDT [facility] MCV 70.8(L) 81.0 - 99.0 FL 03/20/2025 2:13 AM CDT [facility] MCH 20.7(L) 27.0 - 31.0 PG 03/20/2025 2:13 AM CDT [facility] MCHC 29.2(L) 32.0 - 36.0 G/DL 03/20/2025 2:13 AM CDT [facility] RDW 16.2(H) 11.5 - 14.5 % 03/20/2025 2:13 AM CDT [facility] PLT 540(H) 130 - 400 x10'3/uL 03/20/2025 2:13 AM CDT [facility] MPV 9.7 9.3 - 12.2 FL 03/20/2025 2:13 AM CDT [facility] DIFFERENTIAL TYPE AUTOMATED DIFFERENTIAL 03/20/2025 2:23 AM CDT [facility] NEUTROPHILS % 61.1 % 03/20/2025 2:23 AM CDT [facility] LYMPHOCYTES % 29.6 % 03/20/2025 2:23 AM CDT [facility] MONOCYTES % 7.3 % 03/20/2025 2:23 AM CDT [facility] EOSINOPHILS 1.3 % 03/20/2025 2:23 AM CDT [facility] BASOPHILS 0.3 % 03/20/2025 2:23 AM CDT [facility] IMMATURE GRANS % 0.4 % 03/20/20 2:23 AM CDT [facility] ABS. NEUTROPHILS 6.86 1.80 - 7.70 x10'3/uL 03/20/2025 2:23 AM CDT [facility] ABS. LYMPHOCYTES 3.32 1.00 - 4.80 x10'3/uL 03/20/2025 2:23 AM CDT [facility] ABS. MONOCYTES 0.82 0.24 - 0.86 x10'3/uL 03/20/2025 2:23 AM CDT [facility] ABS. EOSINOPHILS 0.15 0.04 - 0.36 x10'3/uL 03/20/2025 2:23 AM CDT [facility] ABS. BASOPHILS 0.03 0.01 - 0.08 x10'3/uL 03/20/2025 2:23 AM CDT [facility] ABS. IMMATURE GRANULOCYTES 0.04 0.00 - 0.49 x10'3/uL 03/20/2025 2:23 AM CDT [facility] RBC MORPHOLOGY SLIDE REVIEWED 2024 2:23 AM CDT [facility] HYPOCHROMASIA 2+ 03/20/2025 2:23 AM CDT [facility] MICRO 1+ 03/20/2025 2:23 AM CDT [facility] POLY 1+ 03/20/2025 2:23 AM CDT [facility] PLT EST. INCREASED 03/20/2025 2:23 AM CDT [facility] 03/20/2025 1:45 AM CDT us [facility] Final Result [facility] [address] [place] [address], * US BREAST RT [employer] (02/15/2025 8:30 AM CDT) Anatomical Region Laterality Modality Breast Right Ultrasound 02/15/2025 8:28 AM CDT Impressions 02/15/2025 8:30 AM CDT ===== IMPRESSION: ===== 1. Benign appearing cyst right breast, no change in size for 2 years, no specific follow-up necessary. Assessment: ACR BI-RADS CATEGORY 2 - BENIGN FINDING(S) Recommendation: 1: Routine screening mammogram bilateral in 1 year Comments: Ordered By: RITCHIE MURILLO Interpreted By: Godfrey Juan, 02/15/2025 8:28 AM Narrative 02/15/2025 8:30 AM CDT [facility] [address] [place] [address] Examination: Diagnostic bilateral mammogram and right breast ultrasound [id number] Exam Date/Time: 02/15/2025 7:54 AM Reason For Exam: Follow-up probably benign right breast mass. Probably benign right excisional biopsy of calcifications 07/13/2023. Annual mammogram on the left. Comparison: 07/16/2024, 01/13/2024, 12/16/2022, 10/01/2022 Technique: Bilateral diagnostic mammography and right breast ultrasound including sonographic grayscale images projections targeted in the region of interest. Doppler used to assess vasculature. 3D tomographic images were obtained. Tissue density: The breast tissue is heterogeneously dense. Findings: Mammogram: Retroareolar right breast circumscribed mass is stable. Postsurgical changes right upper quadrant stable. Left breast appears stable and benign. Rightbreast ultrasound: Retroareolar 9:00 position mass is ovoid and circumscribed and anechoic, typical benign cyst. This measures 5 x 6 x 5 mm. Overall unchanged in size compared with 12/16/2022. us Ritchie Murillo MD ULTRASOUND Final Result * MG DIAG W XAVIER STEPHENSON DIGI (02/15/2025 8:08 AM CDT) Anatomical Region Laterality Modality Breast Bilateral Mammography 02/15/2025 8:28 AM CDT Impressions 02/15/2025 8:30 AM CDT ===== IMPRESSION: ===== 1. Benign appearing cyst right breast, no change in size for 2 years, no specific follow-up necessary. Assessment: ACR BI-RADS CATEGORY 2 - BENIGN FINDING(S) Recommendation: 1: Routine screening mammogram bilateral in 1 year Comments: Ordered By: RITCHIE MURILLO Interpreted By: Godfrey Juan, 02/15/2025 8:28 AM Narrative 02/15/2025 8:30 AM CDT [facility] [address] [place] [address] Examination: Diagnostic bilateral mammogram and right breast ultrasound [id number] Exam Date/Time: 02/15/2025 7:54 AM Reason For Exam: Follow-up probably benign right breast mass. Probably benign right excisional biopsy of calcifications 07/13/2023. Annual mammogram on the left. Comparison: 07/16/2024, 01/13/2024, 12/16/2022, 10/01/2022 Technique: Bilateral diagnostic mammography and right breast ultrasound including sonographic grayscale images projections targeted in the region of interest. Doppler used to assess vasculature. 3D tomographic images were obtained. Tissue density: The breast tissue is heterogeneously dense. Findings: Mammogram: Retroareolar right breast circumscribed mass is stable. Postsurgical changes right upper quadrant stable. Left breast appears stable and benign. Rightbreast ultrasound: Retroareolar 9:00 position mass is ovoid and circumscribed and anechoic, typical benign cyst. This measures 5 x 6 x 5 mm. Overall unchanged in size compared with 12/16/2022. Ritchie Murillo MD MAMMO Final Result from Last 3 Months Insurance [facility] Advance Directives * Full Code (Latest Code Status on File) Date Activated Date Inactivated Comments 12/17/2018 6:43 PM 12/18/2018 7:22 PM Care Teams Program Eligibility Specialist Relationship Specialty Start Date End Date Kenneth Rodriguez MD [address] [place] [address] PCP - General 04/19/15
--- OUTSIDE RECORDS SUMMARY | 2025-05-15 04:18 | XMS_ITS | Clinical Summary ---
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
--- OUTSIDE RECORDS SUMMARY | 2025-05-15 04:18 | XMS_ITS | Clinical Summary ---
Author Organization [facility] Address [facility] [place] [address] Care Team Providers Care Ultrasound Supervisor Name Role Phone Kenneth Rodriguez MD Primary Care Provider [phone] Allergies Active Allergy Reactions Criticality Noted Date [...] CDT - 03/20/2025 3:10 AM CDT Emergency [facility] [place] [address] Nabil Bejarano MD,PHD Abnormal Lab Results Discharge Disposition: Home or Self Care (Routine Discharge) 03/20/2025 Travel 02/15/2025 7:50 AM CDT - 02/15/2025 11:59 PM CDT Hospital Encounter [facility] [place] [address] Ritchie Murillo MD Discharge Disposition: Home or [...] UNITS ORDERED 1 03/20/2025 3:13 AM CDT [facility] ABO/RH B POSITIVE 03/20/2025 3:13 AM CDT [facility] ANTIBODY SCREEN NEGATIVE 3:13 AM CDT [facility] SAMPLE EXPIRATION 03/23/2025,23 59 03/20/2025 3:13 AM CDT [facility] BLOOD UNIT NUMBER [id number] 03/20/2025 3:16 AM CDT [facility] PRODUCT: PC LOW VOL LEUKOPOOR 03/20/2025 3:16 AM CDT [facility] UNIT DIVISION 00 03/20/2025 3:16 AM CDT [facility] BLOOD UNIT STATUS UNIT RELEASED 03/24/2025 6:39 AM CDT [facility] TRANSFUSION STATUS OK TO TRANSFUSE 03/20/2025 3:16 AM CDT [facility] CROSSMATCH COMPATIBLE-EX M 03/20/2025 3:16 AM CDT [facility] 03/20/2025 2:00 AM CDT us Shahana BROWNE BLOOD BANK TEST ORDERABLES Fin al Result [facility] [address] [place] [address], * (ABNORMAL) COMPREHENSIVE METABOLIC PANEL (03/20/2025 1:45 AM CDT) [facility] GLUCOSE 151(H) 70 - 99 MG/DL 03/20/2025 2:23 AM CDT [facility] BUN 12 7 - 18 MG/DL 03/20/2025 2:23 AM CDT [facility] CREATININE S/P/B 0.87 0.55 - 1.02 MG/DL 03/20/2025 2:23 AM CDT [facility] SODIUM S/P/B 136 136 - 145 MMOL/L 03/20/2025 2:23 AM CDT [facility] POTASSIUM S/P/B 3.2(L) 3.5 - 5.1 MMOL/L 03/20/2025 2:23 AM CDT [facility] CHLORIDE S/P/B 103 97 - 115 MMOL/L 03/20/2025 2:23 AM CDT [facility] CO2 26.6 21 - 32 MMOL/L 03/20/2025 2:23 AM CDT [facility] CALCIUM S/P/B 8.9 8.5 - 10.1 MG/DL 03/20/2025 2:23 AM CDT [facility] BILIRUBIN TOTAL S/P/B 0.6 0.2 - 1.2 MG/DL 03/20/2025 2:23 AM CDT [facility] Comment: THIS ASSAY IS NOT RECOMMENDED FOR PATIENTS UNDERGOING TREATMENT WITH ELTROMBOPAG DUE TO THE POTENTIAL FOR FALSELY ELEVATED RESULTS. TOTAL PROTEIN S/P/B 7.5 6.4 - 8.2 G/DL 03/20/2025 2:23 AM CDT [facility] ALBUMIN S/P/B 3.3(L) 3.4 - 5.0 G/DL 03/20/2025 2:23 AM CDT [facility] AST 15 15 - 37 U/L 03/20/2025 2:23 AM CDT [facility] ALT 26 14 - 55 U/L 03/20/2025 2:23 AM CDT [facility] ALKALINE PHOSPHATASE S/P/B 64 50 - 136 U/L 03/20/2025 2:23 AM T [facility] ANION GAP 6.4 2 - 10 MMOL/L 03/20/2025 2:23 AM T [facility] BUN CREATININE RATIO 13.7 6 - 26 03/20/2025 2:23 AM T [facility] A/G RATIO 0.8(L) 1.0 - 2.0 RATIO 03/20/2025 2:23 AM T [facility] GFR ESTIMATE 83(L) >90 ML/MIN/1.7 3 M2 03/20/2025 2:23 AM T [facility] Comment: NOTE: eGFR is not calculated for patients <18 years of age or gender unknown. This is an estimated GFR calculation using the new CKD EPI creatinine equation without race and so does not require a correction factor for race. This estimated GFR should not be used for calculating drug doses. 03/20/2025 1:45 AM CDT [facility] Final Result [facility] [address] [place] [address], [place] [phone] * (ABNORMAL) CBC W/DIFF AUTOMATED (03/20/2025 1:45 AM CDT) [facility] Signature WBC 11.22(H) 4.5 - 11.0 x10'3/uL 03/20/2025 2:13 AM CDT [facility] RBC 3.43(L) 4.20 - 5.40 x10'6/uL 03/20/2025 2:13 AM CDT [facility] HGB 7.1(L) 12.0 - 16.0 G/DL 03/20/2025 2:13 AM CDT [facility] HCT 24.3(L) 38.0 - 48.0 % 03/20/2025 2:13 AM CDT [facility] MCV 70.8(L) 81.0 - 99.0 FL 03/20/2025 2:13 AM CDT [facility] MCH 20.7(L) 27.0 - 31.0 PG 03/20/2025 2:13 AM CDT [facility] MCHC 29.2(L) 32.0 - 36.0 G/DL 03/20/2025 2:13 AM CDT [facility] RDW 16.2(H) 11.5 - 14.5 % 03/20/2025 2:13 AM CDT [facility] PLT 540(H) 130 - 400 x10'3/uL 03/20/2025 2:13 AM CDT [facility] MPV 9.7 9.3 - 12.2 FL 03/20/2025 2:13 AM CDT [facility] DIFFERENTIAL TYPE AUTOMATED DIFFERENTIAL 03/20/2025 2:23 AM CDT [facility] NEUTROPHILS % 61.1 % 03/20/2025 2:23 AM CDT [facility] LYMPHOCYTES % 29.6 % 03/20/2025 2:23 AM CDT [facility] MONOCYTES % 7.3 % 03/20/2025 2:23 AM CDT [facility] EOSINOPHILS 1.3 % 03/20/2025 2:23 AM CDT [facility] BASOPHILS 0.3 % 03/20/2025 2:23 AM CDT [facility] IMMATURE GRANS % 0.4 % 03/20/20 2:23 AM CDT [facility] ABS. NEUTROPHILS 6.86 1.80 - 7.70 x10'3/uL 03/20/2025 2:23 AM CDT [facility] ABS. LYMPHOCYTES 3.32 1.00 - 4.80 x10'3/uL 03/20/2025 2:23 AM CDT [facility] ABS. MONOCYTES 0.82 0.24 - 0.86 x10'3/uL 03/20/2025 2:23 AM CDT [facility] ABS. EOSINOPHILS 0.15 0.04 - 0.36 x10'3/uL 03/20/2025 2:23 AM CDT [facility] ABS. BASOPHILS 0.03 0.01 - 0.08 x10'3/uL 03/20/2025 2:23 AM CDT [facility] ABS. IMMATURE GRANULOCYTES 0.04 0.00 - 0.49 x10'3/uL 03/20/2025 2:23 AM CDT [facility] RBC MORPHOLOGY SLIDE REVIEWED 2024 2:23 AM CDT [facility] HYPOCHROMASIA 2+ 03/20/2025 2:23 AM CDT [facility] MICRO 1+ 03/20/2025 2:23 AM CDT [facility] POLY 1+ 03/20/2025 2:23 AM CDT [facility] PLT EST. INCREASED 03/20/2025 2:23 AM CDT [facility] 03/20/2025 1:45 AM CDT us [facility] Final Result [facility] [address] [place] [address], * [place] BREAST RT [email or web address] (02/15/2025 8:30 AM CDT) Anatomical Region [...] 8:28 AM Narrative 02/15/2025 8:30 AM CDT [facility] [place] [address] Examination: Diagnostic bilateral mammogram and right breast ultrasound [id number] Exam Date/Time: 02/15/2025 7:54 AM Reason For [...] 8:28 AM Narrative 02/15/2025 8:30 AM CDT [facility] [place] [address] Examination: Diagnostic bilateral mammogram and right breast ultrasound [id number] Exam Date/Time: 02/15/2025 7:54 AM Reason For [...] Final Result from Last 3 Months Insurance [facility] Advance Directives * Full Code (Latest Code Status on File) Date Activated Date Inactivated Comments 12/17/2018 6:43 PM 12/18/2018 7:22 PM Care Teams Ultrasound Supervisor Relationship Specialty Start Date End Date Kenneth Rodriguez MD [address] [place] [address] PCP - General 04/19/15
--- OUTSIDE RECORDS SUMMARY | 2025-05-15 04:18 | XMS_ITS | Clinical Summary ---
Author Organization [facility] Address [address] [place] [phone] Care Team Providers Care Harbor Engineer Name Role Phone Kenneth Rodriguez MD Primary Care Provider [phone] Tj Mccarthy MD PhD Unavailable [phone] Allergies Active Allergy Reactions Criticality Noted [...] BY MOUTH ONCE EVERY DAY 10/29/2024 Active drospirenone, contraceptive, (SLYND) tablet tabletIndicatio ns:Abnormal uterine bleeding (AUB) Take 1 each (4 mg total) by mouth daily tablet 11 04/11/2025 Active Hospital, Clinic, or Other Facility Administered Medication Ordered Dose Route Frequency Start Date End Date Status levonorgestreL (MIRENA) 21 mcg/24 hours (8 yrs) 52 mg IUDIndications:Abn ormal Uterine Bleeding intrauterine Continuous (implanted device) 10/19/2023 Active Active Problems Problem Noted Date Diagnosed Date Carpal tunnel syndrome of right wrist 08/02/2024 Anemia 07/27/2021 Iron deficiency anemia 07/27/2021 Encounters Date Type Department Care Team Description 04/11/2025 9:15 AM CDT Office Visit [facility] Obstetrical Gynecology [address] [place] [address] [place] [phone] Abner Pollock MD Abnormal uterine bleeding (AUB) (Primary Dx) 04/10/2025 Orders Only [facility] Obstetrical Gynecology [address] [place] [address] [place] [phone] Abner Pollock MD 04/04/2025 Telephone [facility] Obstetrical Gynecology [address] [place] [address] [place] [phone] Abner Pollock MD 03/11/2025 6:15 PM CDT Office Visit [facility] Obstetrical Gynecology [address] [place] [address] [place] [phone] Abner Pollock MD Intrauterine contraceptive device threads lost, initial encounter (Primary Dx); Abnormal uterine bleeding (AUB) 03/11/2025 Telephone [facility] Obstetrical Gynecology [address] [place] [address] [place] [phone] Abner Pollock MD from Last 3 Months Surgical History Surgery Date Site/Laterality Comments SECTION PORT PLACEMENT CHEST >5 YEARS 03/25/2025 N/A Medical History Medical History Date Comments Asthma Hypertension Family History Medical History Relation Name Comments Breast cancer Neg Hx Endometrial cancer Neg Hx Ovarian cancer Neg Hx Social History Tobacco Use Types Packs/Day Years Used Date Smoking Tobacco: Never Smokeless Tobacco: Never Comments No Sex and Gender Information Value Date Recorded Sex Assigned at Not on file Legal Sex Female 6:55 PM [employer]OR [employer] Gender Identity Not on file Sexual Orientation Not on file Obstetrics History Para Term AB IAB SAB Ectopic Multiple Livin g Live Births 3 2 2 Date Outcome GA Total Labor Labor/2nd/3rd Weight Sex Type Anes PTL Kyleigh A1 A5 Name Clin Term Term Last Filed Vital Signs Vital Sign Reading Time Taken Comments Blood Pressure 138/76 04/11/2025 9:11 AM CDT Pulse 88 08/04/2021 10:59 AM CDT Temperature 36.6 C (97.8 F) 08/04/2021 10:59 AM CDT Respiratory Rate 18 08/04/2021 10:59 AM CDT Oxygen Saturation 100% 08/04/2021 10:59 AM CDT Inhaled Oxygen Concentration - - Weight 99.8 kg (220 lb) 04/11/2025 9:11 AM CDT Height 162.6 cm (5' 4) 04/11/2025 9:11 AM CDT Body Mass Index 37.76 04/11/2025 9:11 AM CDT Plan of Treatment Health Maintenance Due Date Last Done Comments Colon Cancer Screening-Colonoscopy 1978 Depression Screening 1978 Hepatitis C Screening 1978 DTaP/Tdap/Td Vaccine (1 - Tdap) 1989 Hepatitis B Screening 1996 Regular Well Visit/Exam 18-64 1996 Pneumococcal vaccine <65 (1 of 2 - PCV) 1997 Cervical Cancer Screening 11/18/20242023, 11/18/2023, 10/19/2023, Additional history exists Influenza Vaccine (#1) 2025 Breast Cancer Screening-Mammogram 02/15/2026 02/15/2025, 02/15/2025, 01/13/2024, Additional history exists HPV Vaccines Aged Out No longer eligi ble based on patient's age to complete this topic Procedures Procedure Name Priority Date/Time Associated Diagnosis Comments PAP AND HIGH RISK HPV, REFLEX TO GENOTYPING Routine 11/18/2023 10:14 AM 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 ASCUS of cervix with negative high risk HPV DIAGNOSTIC MAMMOGRAM BILATERAL W XAVIER Schedule Routine, Read Routine (OP Routine) 02/02/2022 10:54 AM CDT Other abnormal and inconclusive findings on diagnostic imaging of breast from Last 3 Months or Most Recently Relevant to Health Maintenance Results * Pap and High Risk HPV and Genotyping (Cytology Component) (11/18/2023 10:14 AM MOTOR RACER) Thin prep (Pap test) 11/18/2023 10:14 AM MOTOR RACER 11/21/2023 8:14 AM MOTOR RACER Narrative PATHOLOGY [facility] - 11/28/2023 3:53 PM MOTOR RACER EPIC results best viewed via link to PDF [facility] [place] [address] Note to Patients: This report may contain [...] Gender: F : 1980 (Age: 43) Address: [address] [place] [phone] Hospital #: [id number] Service: UNKNOWN Location: Patient Type: [facility] SPECIMEN Taken: 11/18/2023 Received: 11/21/2023 Accessioned: [...] this test have been verified by the [facility] Molecular Infectious Disease laboratory. Correlate with reported cytology results, as applicable. Interpretive data last revised 23 This specimen has been rescreened in accordance with this laboratory's Engine Lathe Set Up Operator Tool Program. [facility]/11/28/2023 15:53 Felecia Lawson MS, CT (ASCP) Report Electronically Reviewed and Signed Out By ANGÉLICA Vasquez(ASCP), [facility] 11/28/2023 15:53:46 Cervicovaginal Cytology (Pap Test) Disclaimer: The Pap test is a screening test used to detect cervical cancer and its precursors; it is not a diagnostic procedure. False negative and false positive results do occur. Pap test results should be interpreted in the context of pertinent clinical information and biopsy results as indicated. [facility] Clinical Laboratory Improvement Amendments (CLIA) mandate that cytologic and histologic results be correlated for laboratory research quality assurance specialist & improvement standards. FOR ALL HIGH-GRADE CASES [...] determined by the Surgical Pathology Department at [facility] as part of an ongoing quality control expert program and in compliance with federally mandated [...] determined by the Surgical Pathology Department of [facility]. It has not been cleared or approved by the U. S. Food and Drug Administration. Abner Pollock MD LAB CYTOLOGY ORDERABLES Final Result PATHOLOGY [facility] from Last 3 Months or Most Recently Relevant to Health Maintenance Insurance [facility] Care Teams Harbor Engineer Relationship Specialty Start Date End Date Kenneth Rodriguez MD [address] [place] [id number] PCP - General Internal Medicine 07/27/21 Tj Mccarthy MD PhD [address] [place] [phone] Medical Oncologist/Rehabilitation Services Manager Medical Oncology 07/27/21
--- NOTE | 2025-05-15 04:34 | ED_ITS ---
HPI - Dental/Oral General Chief complaint: Dental/Oral Stated complaint: mouth pain Time Seen by Provider: 05/15/25 04:04 History of Present Illness HPI Narrative: 44-year-old female presenting with dental pain. She states she was supposed to have a root canal done but has not had any insurance approval after the procedure. She is having pain in the left-sided lower jaw. Isolated to tooth 20. States she has gotten previously antibiotics for this and has helped. She has tried ibuprofen at home 600 mg without any relief. No other symptoms. No jaw claudication difficulty swallowing. No fever, chills or traumatic injuries. Was otherwise in her normal state of health. Teeth map: 2 1. Dental pain with reproducible pain on palpation. Related Data Home Medications ?Medication ?Instructions ?Recorded ?Confirmed ?Last Taken ?Type albuterol 90 mcg/actuation aerosol 90 mcg inhalation PRN PRN 02/17/22 12/22/24 Unknown History inhaler difficulty breathing losartan 25 mg tablet 25 mg PO DAILY 02/17/22 12/22/24 Unknown History metoprolol tartrate 37.5 mg tablet 50 mg PO DAILY 02/17/22 12/22/24 Unknown History mometasone-formoterol HFA 50 mcg-5 2 puff inhalation Q12H 02/17/22 12/22/24 Unknown History mcg/actuation aerosol inhaler (Dulera) Allergies Allergy/AdvReac Type Severity Reaction Status Date / Time acetaminophen (From Vicodin) AdvReac Intermediate Other Verified 12/22/24 07:33 hydrocodone (From Vicodin) AdvReac Intermediate Other Verified 12/22/24 07:33 naproxen AdvReac Intermediate Other Verified 12/22/24 07:33 sulfamethoxazole (From AdvReac Nausea and Verified 12/22/24 07:33 Bactrim) Vomiting trimethoprim (From Bactrim) AdvReac Nausea and Verified 12/22/24 07:33 Vomiting Review of Systems 2 Review of Systems: As reviewed above in HPI PMFSH Past Medical History Medical History Asthma Hypertension Surgical History Surgical History H/O section Social History Social History Smoking status: Never smoker Alcohol intake: never Substance use: never Exam 2 Narrative: GENERAL: [Well-appearing, well-nourished, and in no acute distress.] HEAD: [Normocephalic, atraumatic.] EYES: [PERRLA and EOMI.] ENT: Nares clear, no rhinorrhea or epistaxis. Mucous membranes moist. Painful palpation of tooth 20. Without any obvious cavities or fracture. No gum disease. No trismus. NECK: Supple. CHEST: [Clear to auscultation. No respiratory distress.] HEART: [Regular rate and rhythm]. No murmur heard. [Normal peripheral pulses.] ABDOMEN: [Soft, nondistended], [nontender], [No rigidity or guarding] EXTREMITIES: Normal range of motion. [No edema.] SKIN: Warm, dry, no rash. NEURO: [No focal deficits]. Alert and oriented [x3.] PSYCH: [Normal mood and affect.] Course Vital Signs Vital signs: Vital Signs Temperature 36.3 C L 05/15/25 02:28 Pulse Rate 83 05/15/25 02:28 Respiratory Rate 18 05/15/25 02:28 Blood Pressure 167/83 H 05/15/25 02:28 Pulse Oximetry 100 05/15/25 02:28 Oxygen Delivery Room Air 05/15/25 02:28 Temperature 36.3 C L 05/15/25 02:28 Pulse Rate 83 05/15/25 02:28 Respiratory Rate 18 05/15/25 02:28 Blood Pressure 167/83 H 05/15/25 02:28 Pulse Oximetry 100 05/15/25 02:28 Oxygen Delivery Room Air 05/15/25 02:28 Procedures Nerve Block Nerve Block 1: Nerve block date: 05/15/25 Nerve block time: 04:37 Local Anesthetic: bupivacaine 0.5% Amount of anesthesia used (mL): 3 Side: left Intraoral Nerve Block: inferior alveolar Procedure Successful: Yes Patient Tolerated Procedure: well and no complications Complications: none MDM - Dental/Oral MDM Narrative Medical decision making narrative: 44-year-old female presenting with dental pain. She states she was supposed to have a root canal done but has not had any insurance approval after the procedure. She is having pain in the left-sided lower jaw. Isolated to tooth 20. States she has gotten previously antibiotics for this and has helped. She has tried ibuprofen at home 600 mg without any relief. No other symptoms. No jaw claudication difficulty swallowing. No fever, chills or traumatic injuries. Was otherwise in her normal state of health. Patient is overall well-appearing, reproducible pain on palpation of tooth 20. Symptoms consistent with symptomatic dental caries. No obvious fracture deformity. Nerve block with inferior alveolar nerve block utilizing bupivacaine 0.5% 3 cc conducted successfully. Patient given Augmentin discharge with antibiotics. Instructed to call her dentist in the morning for follow-up. Medical Records Attestation: I reviewed the patient's medical records. Discharge Plan Discharge Clinical Impression: Toothache, Dental caries Patient Disposition: Home Condition: Stable Instructions: Antibiotic Form, Toothache (ED) Additional Instructions: Follow-up with dentistry on a short-term basis. Will prescribe you antibiotics. Take up to 800 mg of ibuprofen q.8 hours in addition to 1000 mg of Tylenol q.8 hours for pain control. Return with any emergent concerns. Patient Language: Ecuadorean Prescriptions: New amoxicillin-pot clavulanate 875-125 mg tablet 1 tablet PO Q12H 7 Days Qty: 14 0RF No Action losartan 25 mg Tablet 25 mg PO DAILY albuterol 90 mcg/actuation Aerosol 90 mcg INHALATION PRN PRN (Reason: difficulty breathing) metoprolol tartrate 37.5 mg Tablet 50 mg PO DAILY Dulera 50-5 mcg/actuation Hfa Aerosol Inhaler 2 puff INHALATION Q12H azithromycin 250 mg tablet See Rx Instructions .ROUTE .COMPLEX Qty: 6 0RF Rx Instructions: For 250 mg dose pack: take 500 mg today (day 1), then 250 mg for 4 days (days 2-5) amoxicillin-pot clavulanate 875-125 mg tablet 1 tablet PO Q12H 7 Days Qty: 14 0RF azithromycin 250 mg tablet See Rx Instructions .ROUTE .COMPLEX Qty: 6 0RF Rx Instructions: For 250 mg dose pack: take 500 mg today (day 1), then 250 mg for 4 days (days 2-5) amoxicillin-pot clavulanate 875-125 mg tablet 1 tablet PO Q12H Qty: 20 0RF potassium chloride 20 mEq tablet extended release 20 meq PO DAILY Qty: 5 0RF Follow-up/Referrals: PHYSICIAN NOT ON STAFF,NONSTAFF [Primary Care Provider] - Time of Disposition: 04:39
== END 2025-05-15 05:01 | disposition home or self-care (01) ==
PROVIDERS: Emergency Provider Student in an Organized Health Care Education/Training Program
DX: K02.9 Dental caries, unspecified (principal); I10 Essential (primary) hypertension; J45.909 Unspecified asthma, uncomplicated
CPT/HCPCS: 64400; 99283; A9270